=== PATIENT | male | born 1960 | race Caucasian/White ===

== ENCOUNTER 2023-07-20 14:48 | Inpatient (IN) | payer MEDICAID, SELFPAY ==
[2023-07-20] VITALS (58 sets, daily range): BP systolic 66–165; BP diastolic 44–144; BMI 23.5; BMI 23.6
--- NOTE | 2023-07-20 12:05 | ED.GENMED ---
History of Present Illness
General
Chief Complaint: Fainting/Passed Out
Source: patient
Exam Limitations: none
Time Seen by Provider: 07/20/23 11:59
History of Present Illness
History of Present Illness:
See MDM
Past History
Past History
ED Past Medical History: None
ED Past Surgical History: None
Social History
Tobacco: Non-smoker
Alcohol: None
Phy Exam
Physical Exam
Physical Exam:
See MDM
Course
Orders/Labs/Results
Orders:
Orders
07/20/23 11:56
Electrocardiogram (*1) Urgent
Reason for Study: Syncope
07/20/23 11:57
EKG- Treatment ONCE
07/20/23 12:10
Comprehensive Metabolic Panel Urgent
Magnesium Urgent
Comment: ADD ON
07/20/23 12:11
Complete Blood Count/With Diff Urgent
TSH Reflex To Free T4 Urgent
Comment: ADD ON
Troponin I Urgent
07/20/23 12:12
CT Head W/o Iv Contrast Urgent
Comment:
Reason For Exam: syncope
07/20/23 12:19
Lactic Acid Urgent
Blood Culture Q30M
MARISSA Source: Blood/Venous
Specimen Description:
Date Specimen was Collected: 07/20/23
Time Specimen was Collected: 12:13
Blood Culture Q30M
MARISSA Source: Blood/Venous
Specimen Description:
Date Specimen was Collected: 07/20/23
Time Specimen was Collected: 12:13
07/20/23 12:21
Add On- LAB Urgent
Tests Added?: TSH reflex Free T4
07/20/23 12:22
Ondansetron Injectable [Zofran] 4 mg IV NOW STA
07/20/23 12:50
0.9% Sodium Chloride 1000 ml [Nss] 1,000 ml IV BOLUS
07/20/23 13:17
Add On- LAB Urgent
Tests Added?: magnesium
Piperacillin/Tazo 3.375 Gram [Zosyn] 3.375 gram in 50 ml IV NOW
07/20/23 13:19
PTT Urgent
Prothrombin Time Urgent
07/20/23 13:20
0.9% Sodium Chloride 1000 ml [Nss] 1,000 ml IV BOLUS
07/20/23 13:43
Vancomycin [Vancocin] 1,500 mg 0.9% Sodium Chloride [Nss] 20 ml 0.9% Sodium Chloride 250 ml [Nss] 250 ml IV NOW
07/20/23 13:55
NORepinephrine 4 MG/250 ML [Levophed] 4 mg in 250 ml IV NOW
Initial dose in mcg/min, then titrate:: 2
Titrate to keep:: MAP > 65 mmHg
Titrate by mcg/min:: 1-2 mcg/min
Frequency of titrations (minutes):: 5
Maximum dose in ICU in mcg/min:: 30
Maximum dose in IMU in mcg/min:: 8
Maximum dose in IVU in mcg/min:: 4
Begin to taper infusion when:: Remained at goal for 4hrs
Taper by mcg/min:: 1-2 mcg/min
Frequency of taper (minutes) if patient maintains goal:: 30
Taper to off?: Yes
If infusion off & no longer maintaining goal:: Contact Provider
07/20/23 13:56
NORepinephrine 4 MG/250 ML [Levophed] 4 mg in 250 ml .ROUTE .STK-MED
07/20/23 14:07
CT Pe/abd/pel W Urgent
Reason For Exam: b/l lower rib pain
07/20/23 14:30
Admit/Transfer Patient As Directed
Co-Sign Provider:
Level of Care: Inpatient admission
Assign to:: ICU
Physician / Group: Hospitalist
Diagnosis: Sepsis
Reason for Hospitalization: Sepsis
Expected length of stay greater than two midnights?: Yes
ELOS- Estimated Length of Stay in days: 5
I certify the patient meets the requirements for IP care: Yes
07/20/23 14:31
Code Status As Directed
Resuscitation Status: Full Code
07/20/23 Dinner
Regular
At Your Request: Full Participation
Does patient need a safe tray?: No
07/20/23 15:55
Lactic Acid Q4H
Comment: repeat q4 hours x 4 or until less than 2 mmol/L
Troponin I Q6H
0.9% Sodium Chloride 1000 ml [Nss] 1,000 ml IV 200 mls/hr
07/20/23 15:55
Glycohemoglobin (HgbA1c) Routine
Urinalysis Reflex To Culture Urgent
Respiratory Culture/Gram Stain Routine
MARISSA Source: Sputum
Specimen Description:
Comment: IF NOT OBTAINED IN ED
Activity As Directed
Activity Level: As Tolerated
Intake/ Output As Directed
Frequency: Per unit guidelines
Pneumatic Compression Sleeves As Directed
Type: Knee high
Vital Signs As Directed
Frequency: Per unit guidelines
DX Deep Vein Thrombosis Video Routine
07/20/23 16:00
VANCOMYCIN Pharmacy to Dose [VANCOCIN Pharmacy to Dose] 1 each Pharmacy To Prepare [Call Pharmacy To Prepare] 0 ml IV PER PROTOCOL
07/20/23 18:30
Piperacillin/Tazo 3.375 Gram [Zosyn] 3.375 gram in 50 ml IV Q6
07/20/23 19:55
Lactic Acid Q4H
Comment: repeat q4 hours x 4 or until less than 2 mmol/L
07/20/23 21:55
Troponin I Q6H
07/20/23 23:55
Lactic Acid Q4H
Comment: repeat q4 hours x 4 or until less than 2 mmol/L
07/21/23 03:55
Lactic Acid Q4H
Comment: repeat q4 hours x 4 or until less than 2 mmol/L
Troponin I Q6H
07/21/23 06:00
Complete Blood Count/No Diff IN AM
Comprehensive Metabolic Panel IN AM
07/21/23 09:55
Troponin I Q6H
Abnormal Lab Results
07/20/23 07/20/23 07/20/23
12:10 12:11 12:19
RBC 3.45 L 10^6/uL
(4.70-6.10)
Hgb 11.4 L g/dL
(13.0-18.0)
Hct 33.8 L %
(39.0-52.0)
MCV 98.0 H fL
(80.0-94.0)
MCH 33.0 H pg
(27.0-31.0)
MPV 12.2 H fL
(7.4-10.4)
Absolute Neuts (auto) 8.0 H 10^3/uL
(1.4-6.5)
Absolute Lymphs (auto) 0.9 L 10^3/uL
(1.2-3.4)
Neutrophils % 85.1 H %
(42.2-75.2)
Lymphocytes % 9.9 L %
(20.5-51.1)
PT
Chloride 109 H mmol/L
(98-107)
Carbon Dioxide 21 L mmol/L
(22-30)
BUN 27 H mg/dl
(9-20)
Glucose 204 H mg/dl
(70-99)
Lactic Acid 6.2 H* mmol/L
(0.7-2.0)
Calcium 8.1 L mg/dl
(8.4-10.2)
AST 82 H U/L
(17-59)
ALT 88 H U/L
(0-50)
Alkaline Phosphatase 131 H U/L
(38-126)
Total Protein 5.9 L g/dl
(6.3-8.2)
Albumin 2.9 L g/dl
(3.5-5.0)
07/20/23
13:19
RBC
Hgb
Hct
MCV
MCH
MPV
Absolute Neuts (auto)
Absolute Lymphs (auto)
Neutrophils %
Lymphocytes %
PT 16.6 H Sec
(11.4-14.6)
Chloride
Carbon Dioxide
BUN
Glucose
Lactic Acid
Calcium
AST
ALT
Alkaline Phosphatase
Total Protein
Albumin
07/20/23 12:11
07/20/23 12:10
Vital Signs
Initial and Last Documented VS:
Initial Vital Signs
Pulse Resp Pulse Ox
71 16 98
07/20/23 11:58 07/20/23 11:58 07/20/23 11:58
Last Documented Vital Signs
Temp Pulse Resp BP Pulse Ox
97.7 F 110 27 90/64 94
07/20/23 16:19 07/20/23 16:18 07/20/23 16:18 07/20/23 16:03 07/20/23 16:18
MDM/Problems Addressed
Differential Diagnosis Includes:
HPI and MDM Narrative:
62-year-old male presenting by EMS for a near syncope event. Patient had 3 episodes where he was about to pass out. 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 On arrival, patient does appear fatigued and weak.
He is pale and appears malnourished. He does state that he did not eat breakfast this morning. Blood sugar by EMS was over 200. He denies any prior past medical history. Given his history, will obtain basic blood work and provide IV fluids.
Will obtain CT head
Physical exam
General: Weak and frail
HEENT: protecting airway. Dry mucous membranes
Neck: supple
CV: No evidence of cyanosis. Regular rate and rhythm
Resp: No accessory muscle use
Abd: Non-distended
Extremities: No deformities
Neuro: alert
Psych: Normal affect
Skin: Intact
Problems Addressed including Acute and Chronic Conditions affecting care:
1. Near syncope
Acuity: acute
Prognosis: stable
Details: Likely in the setting of dehydration. Will give IV fluids and reassess
2. Hyperglycemia
Acuity: acute
Prognosis: stable
Details: Discussed concern for new onset diabetes
3. Hypothermia
Acuity: acute
Prognosis: unstable
Details: Patient requiring Abhishek hugger
Updates
Patient found to be mildly hypothermic. Will add lactic acid and blood cultures
Given the elevated lactic acid and hypothermia, patient started on broad-spectrum antibiotics. CT head negative. Patient clinically looks better and is more conversant. Systolic blood pressure still around 90 after second liter but patient is
clinically dehydrated. Will continue IV fluids and admit
After talking to the admitting hospitalist, we discussed obtaining CT from the emergency department to assess for PE or possibly undiagnosed cancer
4:20 PM radiology called me indicating that patient has metastatic cancer, likely hepatocellular cancer. There is a large concern that he is actively hemorrhaging from his cancer into his abdomen. Radiology indicating that he had already spoken to
the interventionalist who will come in to embolize. This information was relayed to the admitting hospitalist
Differential Diagnosis (but not limited to): Dehydration, new onset diabetes, cardiac arrhythmia
Testing considered: CT abdomen/pelvis looking for any sort of cancer pathology
Drug therapy (if applicable): OTC meds, please see d/c instruction regarding Rx drugs
Amount and/or Complexity of Data Reviewed
Clinical info obtained from: Patient
External data reviewed: N/A
Labs I independently reviewed (but not limited to): Elevated lactic acid
Radiology: The CT scan was personally and independently reviewed. In addition, official CT report reviewed.
Pulse Ox: not hypoxic
EKG independently reviewed: Sinus rhythm, normal axis, no STEMI, prolonged QT
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
Critical Care: the high probability of a clinically significant, sudden or life threatening deterioration of the cardiovascular system(s) required my full and direct attention, intervention and personal management. The aggregate critical care time
was 33 minutes. This time is in addition to time spent performing reported procedures but includes the following:
[x] Data Review and interpretation
[x] Patient assessment and monitoring of vital signs
[x] Documentation
[x] Medication orders and management
Risk of Complication:
Social Determinants of health: Good social support
Discussed with other providers: hospitalist
Escalation of Care includes Admit/Obs: given his symptoms and lab abnormalities, will admit for IV fluids and IV antibiotics and further evaluation
Occasional wrong word or 'sound a like' substitutions may have occurred due to the inherent limitations of voice recognition software. Read the chart carefully and recognize, using context, where substitutions have occurred.
*Critical Care Note
Total Time (30-74mins, 75-104mins- exclusive of procedures): 33 min
ED Attending Note
-
Portions of this chart may have been created with voice recognition software.� Occasional wrong word or��sound alike� substitutions may have occurred due to the inherent limitations of voice recognition software.
Discharge Plan
Departure
Patient Disposition: Admit
Date of Disposition: 07/20/23
Time of Disposition: 13:29
Admit to: ICU
Presentation/result/management discussed w/ accepting MD/DO: Hospitalist
Discharge Problem:
Near syncope, Acute dehydration, Hyperglycemia, Hypoglycemia
Interventions
Interventions:
*Risk Screen - Suicide Last Done: 07/20/23 11:58
*General Assessment Last Done: 07/20/23 13:15
*Neglect/Abuse Screening Last Done: 07/20/23 12:06
ED- Fall Risk Assessment Last Done: 07/20/23 13:15
*ED COVID-19 Vaccine History Last Done: 07/20/23 12:06
*Nursing Disposition Last Done: 07/20/23 16:20
ED- Cardiac Assessment Last Done: 07/20/23 12:48
ED- Neurological Assessment Last Done: 07/20/23 12:48
Discharge Date and Time
Discharge Date/Time: 07/20/23 16:22
[2023-07-20] MEDS: NSS 1000 IV ×4 (12:20→17:37)
[2023-07-20 12:21] LABS: % Basophils 0.3 % (0-2); % Eosinophils 0.1 % (0-6); % Immature Granulocytes 0.4 % (0-0.5); % Lymphocytes 9.9 % (20.5-51.1); % Monocytes 4.2 % (1.7-9.3); % Neutrophils 85.1 % (42.2-75.2); Absolute Lymphocytes 0.9 10^3/uL (1.2-3.4); Absolute Monocytes 0.4 10^3/uL (0.1-0.6); Hematocrit 33.8 % (39.0-52.0); Hemoglobin 11.4 g/dL (13.0-18.0); Mean Corp Hgb Conc. 33.7 g/dL (33.0-37.0); Mean Platelet Volume 12.2 fL (7.4-10.4); Nucleated Red Blood Cells % 0 % (-); Platelet Count 163 10^3/uL (130-400); Red Blood Cell Count 3.45 10^6/uL (4.70-6.10); Red Cell Dist. Width 13.4 % (11.5-14.5); White Blood Cell Count 9.4 10^3/uL (4.8-10.8)
--- NOTE | 2023-07-20 12:26 | EDRN ---
Addendum entered by Iliana Hansen RN 07/20/23 14:50:
levophed increased to 12mcg/min bp 89/63
Addendum entered by Iliana Hansen RN 07/20/23 14:43:
pts bp remains in the 80's levophed increased to 10mcg/min
Addendum entered by Iliana Hansen RN 07/20/23 14:12:
levophed started at 5mcg/min not 4mch/min
Addendum entered by Iliana Hansen RN 07/20/23 14:06:
pt s bld pressure is in the 80's after 2 liters of fluid
Dr carrion aware
hospitalist Dr Ortega in to eval pt
pt started on levophed 4mcg /min
Addendum entered by Iliana Hansen RN 07/20/23 13:23:
additional; labs added mag and TSH
pts lactic 6.1 Dr Carrion aware
pt to be admitted to hospital. pt aware of admission.
Addendum entered by Iliana Hansen RN 07/20/23 12:48:
laureano sorayagger intact at present
Original Note:
pt started to vomited in triage. Dr carrion aware and gave verbal ordered for IV zofran 4mg , given in ct scan
Original Note:
pt brought in by medics from work for passing out three times and n/v/hypotensiv e
pt answering questions correctly but slow to answer.
pt sts does not have PMD.
pt has no history and is not on meds
pt is not allergic to any thing.
IV inserted 20g right wrist fluids open wide bp 81/59
rectal temp 95.8 warm blankets applied.
pt taken for ct scan of head.
[2023-07-20] MEDS: ZOFRAN 4 MG IV (12:30)
[2023-07-20 12:47] LABS: ALT (SGPT) 88 U/L (0-50); AST (SGOT) 82 U/L (17-59); Albumin 2.9 g/dl (3.5-5.0); Alkaline Phosphatase 131 U/L (38-126); Blood Urea Nitrogen 27 mg/dl (9-20); Calcium 8.1 mg/dl (8.4-10.2); Carbon Dioxide 21 mmol/L (22-30); Chloride 109 mmol/L (98-107); Estimated Creatinine Clearance 61 ml/min; Glucose 204 mg/dl (70-99); Sodium 139 mmol/L (135-145); Total Bilirubin 1.1 mg/dl (0.2-1.3); Total Protein 5.9 g/dl (6.3-8.2); eGFR > 60.00
[2023-07-20 12:55] LABS: Troponin I < 0.012 ng/ml
[2023-07-20 12:56] LABS: Lactic Acid 6.2 mmol/L (0.7-2.0)
[2023-07-20] MEDS: ZOSYN 50 IV ×2 (13:29→20:44)
[2023-07-20 13:32] LABS: Magnesium 1.9 mg/dl (1.6-2.3)
[2023-07-20 13:39] LABS: APTT 25.2 Sec (23.4-35.0); INR 1.36; PT 16.6 Sec (11.4-14.6)
[2023-07-20 13:51] LABS: TSH Reflex To Free T4 3.42 uIU/ml (0.47-4.68)
[2023-07-20] MEDS: LEVOPHED 250 IV ×2 (14:00→19:06)
[2023-07-20] MEDS: VANCOCIN 300 MG IV (14:10)
[2023-07-20] MEDS: VANCOCIN 300 ML IV (14:10)
--- NOTE | 2023-07-20 14:10 | HPS.HSE ---
Family Physician
-
Family Physician: PHYSICIAN PRIVATE
Chief Complaint
-
Tiredness
History of Present Illness
62-year-old man who comes to the ER by EMS for a near syncope event. 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 On arrival, he was pale and
appeared malnourished. He did not eat breakfast this morning. Blood sugar by EMS was over 200. He denies any prior past medical history and does not see a regular doctor. He does not take any medications. At the time that I saw him he was
unable to give further history, except to say his ribs were hurting (bilaterally). No history of trauma. He was getting IV fluids, IV antibiotics and a warmer blanket. He seemed mildly confused.
Medical History
Past Medical History
Past Medical History: Reports Other
Additional Past Medical History:
He denies a PMH
Past Surgical History: Reports None
Social History
Unable to obtain full social history at this time due to: Acuity
Tobacco: Non-smoker
Alcohol: Occasional
Drug: None
Employment: Employed
Family History
Family History: Not pertinent and Unable to Obtain
Allergies / Home Medications
Allergies reflects when Allergies were last updated in [employer].
Home Medications with original date entered in [employer]
Allergy/Medication List:
Allergies
Allergy/AdvReac Type Severity Reaction Status Date / Time
No Known Allergies Allergy Verified 07/20/23 12:28
Home Medications
No Meds [No Current Medications] 07/20/23
Review of Systems
-
Unable to obtain full review of systems at this time due to: Acuity
History Source: Patient
A 12 point ROS was completed and negative except as noted: Yes
Physical Exam
Vital Signs
Vital Signs
Temp Pulse Resp BP Pulse Ox
95.6 F L 74 16 89/57 95
07/20/23 12:12 07/20/23 13:35 07/20/23 13:35 07/20/23 13:35 07/20/23 13:35
Physical Exam
General: Appears in Distress and Appears Chronically Ill
HEENT: Nose Appears Normal and Ears Appear Normal
Respiratory: Clear
Cardiac: S1/S2 and Regular Rhythm
GI: Soft, Non Tender and Non Distended
Musculoskeletal: No Clubbing, No Cyanosis and No Edema
Skin: Warm and Dry
Neuro: Awake
Psych: Calm
Laboratory Results
-
07/20/23 12:11
07/20/23 12:10
Laboratory Results
PT 16.6 Sec (11.4-14.6) H 07/20/23 13:19
INR 1.36 07/20/23 13:19
APTT 25.2 Sec (23.4-35.0) 07/20/23 13:19
Lactic Acid 6.2 mmol/L (0.7-2.0) H* 07/20/23 12:19
Total Bilirubin 1.1 mg/dl (0.2-1.3) 07/20/23 12:10
AST 82 U/L (17-59) H 07/20/23 12:10
ALT 88 U/L (0-50) H 07/20/23 12:10
Alkaline Phosphatase 131 U/L (38-126) H 07/20/23 12:10
Troponin I < 0.012 ng/ml 07/20/23 12:11
Data Reviewed
-
Lab Data: Labs Reviewed by me
Impression/Plan
-
IMPRESSION:
62 man comes in with near syncopal events. He appears chronically ill. Significant finding:
BP 89/57
Temp 95.6
Cl 109
CO2 21
BUN/Creat 27/1.1
Glucose 204
Lac Acid 6.2
Albumin 2.9
AST 82
ALT 88
AlkPhos 131
PLAN:
1. Probable sepsis, source unknown
Broad spectrum abx
Large volume fluids
Pressure support with pressors
Warming blanket
ICU admit
2. Low albumin with high alk phos - pattern suggest cancer, source unknown, no h/o cancer screenings
CT of chest, abd, pelvis (ordered in ED)
Check PSA
3. BUN 27/1.1, appears dehydrated
High volume IV fluids
Recheck in am
4. Inflamed liver - could be from low BP
High volume IV fluids
Recheck in am
5. Elevated glucose - unclear for how long, could be new DM
Check A1c
Supplemental insulin as needed
Diet as tolerated
Full code
VCD for DVTp
--- NOTE | 2023-07-20 15:59 | PHA.VAN.IN ---
Assessment
- Assessment
Renal Function: Unknown baseline
Concomitant Antimicrobials: piperacillin/tazobactam
Plan
- Plan
Initial / Loading Dose: 1500mg - 07/19 14:10
Maintenance Regimen: dosing by level given unknown baseline SCR
Monitoring: random 07/20 0600
MRSA Screen: Ordered per protocol
Will start with dose by level for now and trend SCR
Pharmacokinetics Vancomycin I
- -
Patient Age: 62
Patient Sex: Male
Vancomycin Day #: 1
Indication: Pulmonary/Respiratory
Requesting Provider: Dr. Ortega
Pertinent Antimicrobial Allergies:
NKDA
Height / Weight:
Height 5 ft 6 in
Actual Weight 65.9 kg
- Vital Signs / Lab Results
Temp Pulse Resp BP Pulse Ox
95.6 F L 91 27 90/64 96
07/20/23 12:12 07/20/23 15:00 07/20/23 15:00 07/20/23 15:00 07/20/23 15:00
Lab Results - Hematology
07/20/23
12:11
WBC 9.4
Lab Results - Chemistry
07/20/23
12:10
BUN 27 H
Creatinine 1.1
Estimated Creat Clear 61
Albumin 2.9 L
07/20/23
12:19
Lactic Acid 6.2 H*
[2023-07-20 17:04] LABS: Troponin I 0.013 ng/ml
--- NOTE | 2023-07-20 17:17 | CON.INTV ---
Consultation
Consultation Request
Date/Time Consultation Requested: 07/20/2023 - 1699
Date/Time Consultation Performed: 07/20/2023 - 1714
Requesting Provider: Dr. Ortega
Performing Provider: Dr. Lozano
Reason for Consultation: Shock on vasopressors
Medical History
-
Chief Complaint: Weakness
History of Present Illness:
62-year-old male non-smoker with no known past medical history presents with weakness and near syncopal events. 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 He felt nauseous today as well with reported vomiting. Blood sugar for EMS was >200. He denies taking any medications and does not have any known medical history. In triage he was hypotensive
to 84/59, hypothermic to 95.6 �F, pulse rate 71, breathing at 16 breaths/min and saturating 98% on room air. Labs showed Hb of 11.4, platelets 163, INR 1.36, glucose 204, lactate 6.2 and elevated LFTs with negative troponin x 2. Blood cultures
were collected. Given his syncopal episode that was reported CT head was done which showed no acute intracranial abnormality. Given his abdominal/rib pain, a CTA/abdomen/pelvis with contrast was done showing no evidence of a central PE, and a
large partially exophytic left liver lobe lesion measuring 8 cm accompanying a massive hematoma about the central abdomen with moderate to large volume complex free fluid suggesting hemorrhage, and suggestive of active extravasation. This is
suspicious for a ruptured tumor like a HCC with hemorrhagic ascites. There are also distal paraesophageal varices. Patient was given fluids in the ER with NS 0.9% x 2L, vancomycin/Zosyn, Zofran and started on Levophed given BP remained in 70-80s.
Patient being admitted to the ICU and critical care services consulted for additional management/recommendations.
When I saw the patient he was in bed, looking chronically ill, elizabeth appearing with slight yellow hue to the skin and lower conjunctiva, with BP 74/56 while on Levophed at 16mcg/min, heart rate 110 and saturating 95% on room air. He was also on NS
at 200cc/hr. He endorses mild shortness of breath but really his main issue is weakness with abdominal pain. He denies taking any medications. He currently denies a headache, chest pain, diarrhea, fevers or chills.
PMHx: No known past medical history
PSHx: Noncontributory
Past Medical History
Past Medical History: Other (Above as per HPI)
Past Surgical History: Other (Above as per HPI)
Social History
Tobacco: Non-smoker
Alcohol: Occasional (Says he only drinks once a week but used to drink 4 beers a day up until February 25, 2023)
Drug: None
Family History
Family History: Unable to Obtain (Patient unaware and unable to obtain given acute clinical status)
Allergies / Home Medications
Allergies
Allergy/AdvReac Type Severity Reaction Status Date / Time
No Known Allergies Allergy Verified 07/20/23 12:28
Home Medications
�Medication �Instructions �Recorded �Confirmed �Last Taken �Type
No Meds [No Current Medications] 07/20/23 07/20/23 Unknown History
Review of Systems
-
Unable to Obtain full review of systems at this time due to: Acuity
Vitals / Labs / Diagnostic Testing
Vital Signs
Temp Pulse Resp BP Pulse Ox
97.7 F 110 27 90/64 94
07/20/23 16:19 07/20/23 16:18 07/20/23 16:18 07/20/23 16:03 07/20/23 16:18
Lab Data
07/20/23 12:11
07/20/23 12:10
Laboratory Results
07/20/23
13:19
PT 16.6 H
INR 1.36
APTT 25.2
Diagnostic Testing:
Physical Exam
-
HEENT: Normocephalic and Anicteric
Cardiovascular: Other (Tachycardic)
Respiratory: Wheeze (Negative), Rales (bibasilar), Rhonchi (Negative) and Accessory Resp Muscle Use (mild)
GI: Soft, Distended, Tender and Normal Bowel Sounds
Neurology: Awake and Alert
Skin: Warm and Dry
General: Respiratory Distress (mild due to abd pain)
Assessment
-
Assessment: 62-year-old male non-smoker with no known past medical history presents with weakness and near syncopal events. 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 He felt nauseous today as well with reported vomiting. Blood sugar for EMS was >200. He denies taking any medications and does not have any known medical history. In triage he was
hypotensive to 84/59, hypothermic to 95.6 �F, pulse rate 71, breathing at 16 breaths/min and saturating 98% on room air. Labs showed Hb of 11.4, platelets 163, INR 1.36, glucose 204, lactate 6.2 and elevated LFTs with negative troponin x 2. Blood
cultures were collected. Given his syncopal episode that was reported CT head was done which showed no acute intracranial abnormality. Given his abdominal/rib pain, a CTA/abdomen/pelvis with contrast was done showing no evidence of a central PE,
and a large partially exophytic left liver lobe lesion measuring 8 cm accompanying a massive hematoma about the central abdomen with moderate to large volume complex free fluid suggesting hemorrhage, and suggestive of active extravasation. This is
suspicious for a ruptured tumor like a HCC with hemorrhagic ascites. There are also distal paraesophageal varices. Patient was given fluids in the ER with NS 0.9% x 2L, vancomycin/Zosyn, Zofran and started on Levophed given BP remained in 70-80s.
Patient being admitted to the ICU and critical care services consulted for additional management/recommendations.
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
Impression:
#Shock likely hemorrhagic +/- sepsis in the setting of intra-abdominal bleed with hemorrhagic ascites (suspected ruptured hepatic tumor, i.e. HCC)
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
#Hypothermia likely due to reduced p.o. intake in setting of possible sepsis
#Transaminitis
#Lactic acidosis
#Hyperglycemia
#Non-anion gap metabolic acidosis
#Anemia (unknown baseline)
#Hx of alcohol use
Plan:
- IR has reviewed the CT Abd/Pelvis with contrast study, and have come in for angiogram + embolization likely with gel-foam
- patient remains consentable - I consented him for blood transfusion, and I will give 2 units PRBC now
- Trend Hb with serial H/H; transfuse if active bleed or if Hb <7g/dL; keep plt>50k, INR<2
- Trend lactate level until <2mmol/L
- Continue levophed and maintain MAP>65
- Start vasopressin and give another 1L of NS 0.9%
- Give albumin 25g 25%
- I am hopefully that his BP will improve once this abdominal/hepatic bleed is controlled
- If IR unable to control the bleed then general surgery will need to consulted
- Trend LFTs
- Continue ABx with Zosyn and follow up infectious workup with BCx
- Maintain SpO2 >90-94%
- Replete electrolytes with K>4, Mg>2
- Keep NPO for now
- Maintain euglycemia with goal BG 140-180; use low-resistance ISS
- prn nebulized bronchodilators
- Incentive spirometer
- DVT ppx - SCDs for now; hold antiplatelets/anticoagulants for now
Critical care statement: A total of 40 minutes of critical care time was provided for this patient today. This includes management of unstable vital signs, evaluation of the patient at bedside, reviewing the patient's pertinent medical records
including radiographs, microbiology, laboratory evaluations, and discussion with primary team, consultants, pharmacy, nutrition, physical therapy, case management, charge nurse, critical care nursing, and respiratory therapy.
Data:
CTA Chest/Abd/Pelvis with Contrast 07-20-2023:
No evidence of central pulmonary embolism.
Large partially exophytic in the left lobe measuring at least 8 cm with likely accompanying massive accompanying hematoma about the central abdomen and moderate to large volume complex free fluid suggesting hemorrhage, centered about the large left
lobe lesion with some likely active contrast extravasation. Findings are suspicious for ruptured tumor such as hepatocellular carcinoma with accompanying large hematoma and with moderate to large volume mildly complex free fluid/hemorrhage.
Additional smaller hepatic lesions suspicious for malignancy, possibly multifocal hepatocellular carcinoma.
Distal paraesophageal varices.
Cholelithiasis.
[2023-07-20 17:19] LABS: Lactic Acid 7.1 mmol/L (0.7-2.0)
[2023-07-20] MEDS: PITRESSIN 100 IV (17:37)
[2023-07-20] MEDS: FLEXBUMIN 100 IV (18:04)
--- NOTE | 2023-07-20 19:00 | PTCARENOTE ---
Received pt from ER into rm [id number] @ approx 1600, hemodynamically unstable. Emergently taken to IR on vaso and levo gtts w NS bolus infusing- see flow sheet/APR. pattern keeper RN updated, awaiting report from IR.
--- NOTE | 2023-07-20 19:23 | W.PN.UPDATE ---
Update Note
Progress Note Update
Procedure:
- RIJ central line placement
- Celiac arteriogram and LHA arteriogram. Images showed large hypervascular mass within the left lobe predominantly supplied by the left hepatic artery. Abnormal pooling/blush of contrast observed along the inferior margin of the mass to correspond
to hemorrhage seen on prior CT.
- Embolization of LHA performed with small amount of beads (300-500um) followed by gelfoam slurry. Final images showed nearly static flow within proximal LHA with no further signs of bleeding
- R groin closed with mynx closure device
[2023-07-20] MEDS: NOVOLOG FLEXPEN-LOW RESISTANCE SC (20:44)
[2023-07-20] MEDS: NSS IV (20:48)
[2023-07-20] MEDS: MORPHINE SULFATE 2 MG IV (21:55)
--- NOTE | 2023-07-20 22:03 | PTCARENOTE ---
Pt arrived back to ICU from IR approx 19:45. Pt Ox3, drowsy and forgetful. Sinus tach, w/ occasional PVCs. Remains on levophed and vaso. Pts general color dusky/pale. B/L LE pale/cold/cap refill > 2. DP pulses by doppler, PT palpable. R groin site
WNL. RLE tp be kept straight x3hr. 2L NC, breath sounds coarse t/o. Bowel sounds hypoactive. C/O upper abd pain, unable to rate--stated 'same as before', PRN order for morphine IVP obtained and administered. Grubbs placed for acute retention. Bladder
scan = >396, initial output = 650. x2 units PRBCs transfused. Repeat labs pending. Safe environment maintained, callbell within reach.
[2023-07-20 23:28] LABS: Hemoglobin 9.7 g/dL (13.0-18.0); Mean Corp Hgb Conc. 34.6 g/dL (33.0-37.0); Mean Corpuscular Hgb 31.7 pg (27.0-31.0); Mean Corpuscular Volume 91.5 fL (80.0-94.0); Mean Platelet Volume 12.3 fL (7.4-10.4); Platelet Count 151 10^3/uL (130-400); Red Blood Cell Count 3.06 10^6/uL (4.70-6.10); Red Cell Dist. Width 16.1 % (11.5-14.5); White Blood Cell Count 19.4 10^3/uL (4.8-10.8)
[2023-07-20 23:56] LABS: Lactic Acid 5.9 mmol/L (0.7-2.0)
[2023-07-21] VITALS (73 sets, daily range): BP systolic 82–145; BP diastolic 44–102; BMI 25.1
[2023-07-21] LABS: Troponin I 0.034 ng/ml
[2023-07-21 00:53] LABS: Urine Albumin Trace (Neg - Trace); Urine Bilirubin Negative (Negative); Urine Character Slightly Cloudy (Clear); Urine Color Yellow; Urine Glucose Negative (Negative); Urine Ketone Negative (Negative); Urine Leukocyte Trace (Negative); Urine Nitrite Negative (Negative); Urine Occult Blood 1+ (Negative); Urine Specific Gravity 1.015 (<1.030); Urine Urobilinogen Negative (Neg - 1+)
[2023-07-21] MEDS: ZOSYN 50 IV ×4 (00:57→17:30)
[2023-07-21] MEDS: NOVOLOG FLEXPEN-LOW RESISTANCE 1 UNITS SC (01:00)
[2023-07-21 01:11] LABS: Glucose - Point of Care 153 mg/dl (70-99)
[2023-07-21 01:33] LABS: Urine Amorphous Seen; Urine Squamous Cell >30 /LPF (Few)
[2023-07-21 01:35] LABS: Urine Bacteria Moderate (Negative); Urine White Cell 30-40 /HPF (0-5)
[2023-07-21 01:36] LABS: Urine White Cell Cast 0-2 /LPF
[2023-07-21] MEDS: NSS 1000 IV ×4 (02:30→19:55)
[2023-07-21] MEDS: PITRESSIN 100 IV (03:47)
[2023-07-21 04:56] LABS: Hematocrit 24.2 % (39.0-52.0); Hemoglobin 8.7 g/dL (13.0-18.0); Mean Corpuscular Hgb 31.5 pg (27.0-31.0); Mean Corpuscular Volume 87.7 fL (80.0-94.0); Mean Platelet Volume 11.8 fL (7.4-10.4); Platelet Count 141 10^3/uL (130-400); Red Blood Cell Count 2.76 10^6/uL (4.70-6.10); Red Cell Dist. Width 16.4 % (11.5-14.5); White Blood Cell Count 14.5 10^3/uL (4.8-10.8)
[2023-07-21 05:16] LABS: Lactic Acid 3.5 mmol/L (0.7-2.0)
[2023-07-21 05:19] LABS: Vancomycin Random 7.3 ug/ml
[2023-07-21 05:20] LABS: Troponin I 0.034 ng/ml
[2023-07-21 05:34] LABS: ALT (SGPT) 429 U/L (0-50); AST (SGOT) 818 U/L (17-59); Albumin 2.7 g/dl (3.5-5.0); Alkaline Phosphatase 79 U/L (38-126); Blood Urea Nitrogen 29 mg/dl (9-20); Calcium 7.6 mg/dl (8.4-10.2); Carbon Dioxide 18 mmol/L (22-30); Chloride 111 mmol/L (98-107); Estimated Creatinine Clearance 75 ml/min; Glucose 133 mg/dl (70-99); Potassium 4.7 mmol/L (3.5-5.1); Sodium 138 mmol/L (135-145); Total Bilirubin 1.4 mg/dl (0.2-1.3); Total Protein 5.3 g/dl (6.3-8.2); eGFR > 60.00
[2023-07-21] MEDS: NOVOLOG FLEXPEN-LOW RESISTANCE SC ×3 (06:18→17:30)
[2023-07-21 06:20] LABS: Glucose - Point of Care 137 mg/dl (70-99)
--- NOTE | 2023-07-21 06:43 | PTCARENOTE ---
Levophed at 2mcg/min, vasopressin off. MAP goal > 65 maintained.
--- NOTE | 2023-07-21 08:07 | W.PN.HOSP.TC ---
Today's Communication/Plan
-
see bold
Assessment / Plan
Assessment / Plan
HPI: 62-year-old male non-smoker with no known past medical history presents with weakness and near syncopal events. 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 He felt nauseous today as well with reported vomiting.
#Hemorrhagic shock
#Left hepatic artery rupture with bleeding
#Massive intra-abdominal hematoma
#Lactic acidosis
Status post normal saline bolus and IV albumin
Appreciate trade specialist input, now off vasopressin and Levophed
Status post embolization of left hepatic artery by IR followed by Gelfoam slurry on 07/19
Continue empiric antibiotics for leukocytosis
N.p.o., continue IV fluids, monitor in ICU, consult general surgery
# 8 cm left liver lobe lesion concerning for HCC
#Transaminitis
Consult hematology, trend LFTs
#Acute blood loss anemia
Status post 2 units packed red blood cells
Hemoglobin dropped to 7.6, was hemoglobin 8.7 this am, was 11.4
Transfuse additional 2 units today, continue to trend
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
#History of alcohol use
#Hyperglycemia
Hemoglobin A1c 5.1
Monitor hemoglobin
DVT prophylaxis�SCDs
Full code
Total time spent to see the patient on the floor, examine the patient, review data and lab results, discuss treatment plan with patient, nursing staff around 52 minutes.
Physical Exam
General: Appears acutely ill, no acute distress
HEENT: Normocephalic, Atraumatic, EOMI, MMM
Respiratory: Clear to Auscultation bilaterally
Cardiac: Normal S1/S2, Regular Rate and Rhythm
GI: Soft, mildly distended, tender
Extremities: No Clubbing, Cyanosis
Neuro: Nonfocal/Grossly Intact
Psych: Calm, Cooperative
Anticipated Discharge: > 48 hours
Subjective/Interval History
-
Date of Service: July 21, 2023
Objective Data
-
Labs:
Laboratory Results
07/20/23 07/21/23 07/21/23
23:19 04:45 12:00
WBC 19.4 H 14.5 H
Hgb 9.7 L 8.7 L Pending
Hct 28.0 L 24.2 L Pending
Plt Count 151 141
Sodium 138
Potassium 4.7
Chloride 111 H
Carbon Dioxide 18 L
BUN 29 H
Creatinine 0.9
Glucose 133 H
Calcium 7.6 L
Total Bilirubin 1.4 H
AST 818 H*
ALT 429 H
Alkaline Phosphatase 79
Vital Signs:
Vital Signs
Temp Pulse Resp BP Pulse Ox
99.2 F 103 17 132/76 95
07/21/23 07:18 07/21/23 07:00 07/21/23 07:00 07/21/23 07:00 07/21/23 07:00
I&O
07/20/23 07/21/23 07/22/23
06:59 06:59 06:59
Intake Total 2304.0 / 2511.5 207.5 / 207.5
Output Total 910 / 910
Balance 1394.0 / 1601.5 207.5 / 207.5
--- NOTE | 2023-07-21 09:00 | PTCARENOTE ---
Received pt @ change of shift. Drowsy, awakens to verbal stimuli, Ox3; forgetful/anx @ x's. C/O upper abd pain, unable to rate but reports it's improving. ST w PVC's on monitor. SpO2 93% on 2LNC. Auscultated coarse breath sounds throughout and
diminished breath sounds @ b/l base. Hypoactive BS, upper abd tender. Grubbs in place draining clear/yellow urine. R groin site c/d/i; no hematoma/ecchymosis appreciated. B/L LE pale; cap refill >2 sec; + pedal doppler pulses. General skin color
sallow. R IJ TL in place, patent ; levo and vso gtts off- see flow sheet. NSS @ 200mL/hr infusing via #20 L wrist. Assisted w hygiene and repositioning in bed. Informed on plan of care. BrotherPipe, updated on pt,'s current condition via
phone. Instructed on how to report care concerns and call ramirez in reach.
[2023-07-21 09:08] LABS: Glycohemoglobin (HgbA1c) 5.1 % (4.0-5.6)
--- NOTE | 2023-07-21 09:27 | W.PN.INTV ---
Today's Communication / Plan
Recommendations
Trend H/H and transfuse if Hb<7g/dL
keep plt>50k
Hold antiplatelets/anticoagulants for now
Clear liquid diet and advance as tolerated
Once stable he should obtain either a liver biopsy versus paracentesis to help obtain tissue for diagnosis of suspected HCC
Pain control
SCDs
Full code
Assessment
-
Assessment: 62-year-old male non-smoker with no known past medical history presents with weakness and near syncopal events. 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 He felt nauseous today as well with reported vomiting. Blood sugar for EMS was >200. He denies taking any medications and does not have any known medical history. In triage he was
hypotensive to 84/59, hypothermic to 95.6 �F, pulse rate 71, breathing at 16 breaths/min and saturating 98% on room air. Labs showed Hb of 11.4, platelets 163, INR 1.36, glucose 204, lactate 6.2 and elevated LFTs with negative troponin x 2. Blood
cultures were collected. Given his syncopal episode that was reported CT head was done which showed no acute intracranial abnormality. Given his abdominal/rib pain, a CTA/abdomen/pelvis with contrast was done showing no evidence of a central PE,
and a large partially exophytic left liver lobe lesion measuring 8 cm accompanying a massive hematoma about the central abdomen with moderate to large volume complex free fluid suggesting hemorrhage, and suggestive of active extravasation. This is
suspicious for a ruptured tumor like a HCC with hemorrhagic ascites. There are also distal paraesophageal varices. Patient was given fluids in the ER with NS 0.9% x 2L, vancomycin/Zosyn, Zofran and started on Levophed given BP remained in 70-80s.
Patient being admitted to the ICU and critical care services consulted for additional management/recommendations.
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
Impression:
#Shock likely hemorrhagic +/- sepsis in the setting of intra-abdominal bleed with hemorrhagic ascites (suspected ruptured hepatic tumor, i.e. HCC)
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
#Hypothermia likely due to reduced PO intake in setting of possible sepsis
#Transaminitis
#Lactic acidosis
#Hyperglycemia
#Non-anion gap metabolic acidosis
#Anemia (unknown baseline)
#Hx of alcohol use
#Multiple pulmonary nodules including calcified granulomas and non-calcified nodules, including RLL 5mm nodule, and other scattered subcentimeter nodules in RUL + RMLe
Plan:
-IR performed celiac arteriogram and left hepatic artery arteriogram on 07/20/2023, with a large hypervascular mass within the left lobe predominantly supplied by the left hepatic artery. Embolization of the left hepatic artery performed with small
amount of beads followed by Gelfoam slurry. No further signs of bleeding seen by the procedures end.
- He received 2 units PRBC on 07/19
- Trend Hb with serial H/H; transfuse if active bleed or if Hb <7g/dL; keep plt>50k, INR<2
- Trend lactate level until <2mmol/L
- Maintain MAP>65
- Continue vasopressin
- prn albumin 25g 25% if needed for hypotension
- If bleed returns then general surgery will need to consulted
- Oncology consult given concern for HCC; once stable he should obtain liver Bx vs paracentesis to help obtain tissue for diagnosis
- Trend LFTs
- Continue ABx with Zosyn and follow up infectious workup with BCx
- No need for IV vanco given negative MRSA swab and little suspicion for PNA
- Maintain SpO2 >90-94%
- Replete electrolytes with K>4, Mg>2
- Ok for clear liquids for now
- Maintain euglycemia with goal BG 140-180; use low-resistance ISS
- prn nebulized bronchodilators
- Incentive spirometer
- DVT ppx - SCDs for now; hold antiplatelets/anticoagulants for now
Critical care statement: A total of 41 minutes of critical care time was provided for this patient today. This includes management of unstable vital signs, evaluation of the patient at bedside, reviewing the patient's pertinent medical records
including radiographs, microbiology, laboratory evaluations, and discussion with primary team, consultants, pharmacy, nutrition, physical therapy, case management, charge nurse, critical care nursing, and respiratory therapy.
Data:
CTA Chest/Abd/Pelvis with Contrast 07-20-2023:
No evidence of central pulmonary embolism.
Large partially exophytic in the left lobe measuring at least 8 cm with likely accompanying massive accompanying hematoma about the central abdomen and moderate to large volume complex free fluid suggesting hemorrhage, centered about the large left
lobe lesion with some likely active contrast extravasation. Findings are suspicious for ruptured tumor such as hepatocellular carcinoma with accompanying large hematoma and with moderate to large volume mildly complex free fluid/hemorrhage.
Additional smaller hepatic lesions suspicious for malignancy, possibly multifocal hepatocellular carcinoma.
Distal paraesophageal varices.
Cholelithiasis.
Embolization 07-20-2023: Embolization of the left hepatic artery feeding a large hypervascular and bleeding tumor using a combination of embospheres and gel foam slurry.
Subjective Dataa
Subjective Data
Date of Service:
Date of Service: July 21, 2023
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
Subjective:
Patient seen this morning. His skin color is much less pale/elizabeth, and is normal appearing. BP 126/81 and he is off all vasopressors. He is on 2 L/min nasal cannula saturating 93%. He remains tachycardic, however, to 118 bpm. And he is still
tachypneic to 28 breaths/min and says he is short of breath. He also endorses lower abdominal pain. His abdominal pain and SOB however are better than yesterday. He has received 2 units PRBCs yesterday with Hb this morning of 8.7.
Review of Systems
General: Other (Negative unless mentioned above)
Objective Data
Data Reviewed
Vital Signs / I&O / Oxygen:
Vital Signs
Temp Pulse Resp BP Pulse Ox
99.2 F 117 19 117/77 93
07/21/23 11:02 07/21/23 09:15 07/21/23 09:15 07/21/23 09:15 07/21/23 09:26
Intake and Output
07/20/23 07/21/23 07/22/23
06:59 06:59 06:59
Intake Total 2304.0 / 2511.5 1077.5 / 1077.5
Output Total 910 / 910 150 / 150
Balance 1394.0 / 1601.5 927.5 / 927.5
SaO2 93
Nasal Cannula flow liters per 2
minute
Physical Exam
General: Respiratory Distress (mild) and Chills (negative)
HEENT: Normocephalic and Anicteric
Cardiovascular: S1-S2, Peripheral Edema (negative) and Other (Tachycardic)
Respiratory: Wheeze (negative), Crackles (negative), Rhonchi (negative) and Accessory Resp Muscle Use (Mild)
GI: Distended, Tender (hypogastrium) and Normal Bowel Sounds
Neurology: AO x 3 and Tremors (negative)
Skin: Warm and Dry
Labs/Micro/Reports
Lab Data
07/21/23 04:45
Laboratory Results
07/20/23
13:19
PT 16.6 H
INR 1.36
APTT 25.2
Microbiology
07/20/23 16:40 Nose Nasal Screen MRSA (PCR) - Final
MRSA not detected - performed by PCR methodology.
--- NOTE | 2023-07-21 09:41 | PHA.VAN.FU ---
Vancomycin Assessment / Plan
- Assessment
Renal Function: SCR Decreasing
WBC's are: Trending Down
In the past 24 hrs, patient has been: Afebrile
Concomitant Antimicrobials: Piperacillin-tazobactam
- Assessment - Therapeutic Drug Monitoring
Random Level: R = 7.3 ~ 15hrs post Vanc 1500mg
- Dosing Plan
Adjust Regimen to: Vanc 750mg IV q12H
New Regimen Predicts: AUC (472), Peak (27.6), Trough (13.3)
- Monitoring Plan
No level(s) ordered at this time: Consider levels after 07/21 1800 dose.
- Follow Up
Pharmacy will continue to follow.
Vancomycin Follow UP
- -
Patient Age: 62
Patient Sex: Male
Vancomycin Day #: 2
Indication: Pulmonary/Respiratory
Requesting Provider: Dr. Ortega
Pertinent Antimicrobial Allergies:
NKDA
Height / Weight:
Height 5 ft 6 in
Actual Weight 70.4 kg
- Vital Signs / Lab Results
Temp Pulse Resp BP Pulse Ox
99.2 F 117 19 117/77 93
07/21/23 07:18 07/21/23 09:15 07/21/23 09:15 07/21/23 09:15 07/21/23 09:26
Lab Results - Hematology
07/20/23 07/20/23 07/21/23
12:11 23:19 04:45
WBC 9.4 19.4 H 14.5 H
Lab Results - Chemistry
07/20/23 07/21/23
12:10 04:45
BUN 27 H 29 H
Creatinine 1.1 0.9
Estimated Creat Clear 61 75
Albumin 2.9 L 2.7 L
07/20/23 07/20/23 07/20/23
12:19 16:32 19:55
Lactic Acid 6.2 H* 7.1 H* Cancelled
07/20/23 07/21/23
23:19 04:45
Lactic Acid 5.9 H* 3.5 H
Lab Results - Urine
07/21/23
00:39
Urine Nitrite (Reflex) Negative
Leukocyte Esterase Rfl Trace A
Ur Squamous Epith Cells >30
Therapeutic Drug Monitoring
Random Vancomycin 7.3 ug/ml 07/21/23 04:45
[2023-07-21] MEDS: VANCOCIN 150 IV (10:17)
[2023-07-21 12:13] LABS: Glucose - Point of Care 119 mg/dl (70-99)
--- NOTE | 2023-07-21 12:38 | PTCARENOTE ---
Remains off pressors. Surgery team to bedside. Diet advanced, assisted pt w ordering clear liq diet for lunch. Instructed on breathing exercises/IS, demonstrates understanding. H&H drawn/sent to lab, awaiting results. Bedrest maintained pending
H&H results. Pt.'s sister to bedside this afternoon, updated on plan of care. Pt.'s call ramirez remains w in reach.
[2023-07-21 12:41] LABS: Hematocrit 21.1 % (39.0-52.0); Hemoglobin 7.6 g/dL (13.0-18.0)
[2023-07-21 12:48] LABS: Troponin I 0.022 ng/ml
--- NOTE | 2023-07-21 13:45 | CON.GS ---
Consultation
-
Date/Time Consultation Requested: 07/21/23 1024
Requesting Provider: Olegario Mercado
Reason for Consultation: ruptured tumor
Medical History
-
Chief Complaint: abdominal pain
History of Present Illness:
Mr. Rivera is a 62 yo male without significant prior medical history although he does admit to no recent medical evaluation who presents with syncope x3 episodes with abdominal and rib pain. He was found to have liver lesions and a large adjacent
hematoma on CT imaging and was taken to IR emergently for embolization of LHA. He is currently reporting some mild central abdominal pain with bloating. He has passed flatus once but no BM since presentation. He denies nausea. He does note some
dyspnea.
Social History
Tobacco: Non-Smoker
Alcohol: Other (Several beers daily up until February of this year, now weekly glass of beer)
Living: With Family (lives with sister)
Family History
Family History: Reviewed & Not Pertinent
Allergies / Home Medications
Allergy/AdvReac Type Severity Reaction Status Date / Time
No Known Allergies Allergy Verified 07/20/23 12:28
�Medication �Instructions �Recorded �Confirmed �Type
No Meds [No Current Medications] 07/20/23 07/20/23 History
Review of Systems
-
History Source: Patient and Family
All other systems: Negative unless noted
A 10 point review of systems was completed, and was negative except as per HPI.
Physical Exam
Vital Signs
Temp Pulse Resp BP Pulse Ox
99.1 F 113 20 123/80 93
07/21/23 13:43 07/21/23 13:43 07/21/23 13:43 07/21/23 13:43 07/21/23 13:43
07/20/23 07/21/23 07/22/23
06:59 06:59 06:59
Actual Weight 70.4 kg
Body Mass Index (BMI) 25.1
Lab Results
07/21/23 12:08
07/21/23 04:45
WBC 14.5 10^3/uL (4.8-10.8) H 07/21/23 04:45
Hgb 7.6 g/dL (13.0-18.0) L 07/21/23 12:08
Hct 21.1 % (39.0-52.0) L 07/21/23 12:08
Plt Count 141 10^3/uL (130-400) 07/21/23 04:45
Abs Immat Gran (auto) 0.0 10^3/uL (0-0.05) 07/20/23 12:11
Neutrophils % 85.1 % (42.2-75.2) H 07/20/23 12:11
Physical Exam
General: Other (Ill appearing)
Respiratory: Non Labored Respirations
GI: Soft, Tender (central abd) and Distended (mild)
Skin: Warm
Neuro: Awake, Alert and AO x 3
Psych: Calm
Data Reviewed
-
Radiology: Image Personally Visualized and interpreted, Report Reviewed by me, Discussed with Physician, Discussed with Nurse, Discussed with Patient and Discussed with Family
CT Scan: Image Personally Visualized and interpreted, Report Reviewed by me, Discussed with Physician, Discussed with Nurse and Discussed with Family
Labs: Labs Reviewed by me, Discussed with Physician, Discussed with Nurse, Discussed with Patient and Discussed with Family
Assessment / Plan
-
62 yo male with h/o ETOH use and no recent medical evaluation presenting with syncope x3. He was found to have liver lesions and a large adjacent hematoma on CT imaging and was taken to IR emergently for embolization of LHA. Afebrile but tachycardic
with mild hypoxia requiring O2. Reviewed CT and IR films of successful embolization. Hepatic lesions present with suspicion for HCC. Acute blood loss anemia present with slow downtrend of h/h s/p transfusion of 2 units of pRBCs. Suspect downtrend in
h/h secondary to equilibration post procedure and not further bleeding.
If active bleeding again suspected, would repeat imaging and attempt IR procedure once again. Given complexity of case/?HCC if surgery is required this hospitalization would recommend transfer to tertiary care center with hepatobiliary specialist.
Follow labs closely
Med onc consult pending for further oncologic work up
Given size of hematoma, high risk for ileus. Clears today but would hold off on further diet advancement for now
--- NOTE | 2023-07-21 13:50 | PTCARENOTE ---
Hgb resulted 7.6; Dr. Mercado aware and further order received. 1 unit PRBC initiated- see TAR. Pt. appetite poor but tolerating intake. Able to reposition self in bed. Call james rodriguez in reach.
--- NOTE | 2023-07-21 16:00 | CON.ONC ---
Impression
Impression
hepatic mass w/ associated hematoma
s/p IR guided embolization - LHA
h/o significant ETOH use/ abuse
Plan
Plan
1. Hepatic mass w/ associated hematoma
-s/p IR guided embolization of LHA
-surgery following
-these radiographic findings may represent underlying HCC
-patient would need to be stabilized prior to consideration of additional oncologic w/u - including biopsy for pathology
-check AFP
will continue to follow with you
Patient History
History of Present Illness
62y/o male seen in consultation today regarding liver mass.
The patient presented to the [facility] ER w/ weakness and near syncope. In the ER he was found to be hypotensive and hypothermic. Hemoglobin was 11.4g/dl. LFTs were elevated. CT imaging revealed a large partially exophytic left liver lobe
lesion measuring 8 cm with likely accompany hematoma about the central abdomen with moderate to large volume complex free fluid suggesting hemorrhage. This finding as per radiology was suspicious for HCC w/ hematoma. Additional smaller hepatic
lesions suspicious for malignancy were appreciated, possibly multifocal hepatocellular carcinoma.
The patient subsequently underwent IR guided embolization of the left hepatic artery. Hemoglobin is holding at 7.6g/dl. The patient has been seen by surgery, w/ no acute surgical plans.
Clinically, he notes increased fatigue. He has some discomfort in the abdomen. No SOB or chest pain.
Past-Medical/Surgical History
PMH:
ETOH use/ abuse
PSH:
none
SH:
h/o significant ETOH use/ abuse for many years - 2 six packs/ day at one point
no tobacco
FH: non-contributory
Allergies: NKDA
Patient Medication
�Medication �Instructions �Recorded �Confirmed �Last Taken �Type
No Meds [No Current Medications] 07/20/23 07/20/23 Unknown History
Active Medications
Generic Name Dose Route Start Last Admin
Trade Name Freq PRN Reason Stop Dose Admin
Acetaminophen 650 mg 07/20/23 19:28
Acetaminophen 325 Mg Tablet PO 08/17/23 19:27
Q6HPRN PRN
mild pain
Dextrose 12.5 grams 07/20/23 18:00
Dextrose 50% (0.5 Grams/Ml) 50 Ml Syringe IV 08/17/23 17:59
[id number] PRN
hypoglycemia
Protocol
Glucagon 1 mg 07/20/23 18:00
Glucagon 1 Mg Vial IM 08/17/23 17:59
PRN PRN
hypoglycemia - no IV access
Protocol
Sodium Chloride 1,000 mls @ 100 mls/hr 07/20/23 15:55 07/21/23 12:03
Nss IV 1,000 mls
.Q10H BISMARK Administration
Piperacillin Sod/Tazobactam Sod 3.375 gram in 50 mls @ 100 mls/hr 07/20/23 18:30 07/21/23 12:03
Zosyn IV 50 mls
Q6 BISMARK Administration
Vasopressin 20 units in 100 mls @ 0 mls/hr 07/20/23 17:15 07/21/23 03:47
Pitressin IV 100 mls
PER PROTOCOL BISMARK Administration
Protocol
Per Protocol
Norepinephrine Bitartrate 4 mg in 250 mls @ 0 mls/hr 07/20/23 19:00 07/20/23 19:06
Levophed IV 250 mls
PER PROTOCOL BISMARK Administration
Protocol
Per Protocol
Vancomycin HCl 750 mg in 150 mls @ 150 mls/hr 07/21/23 18:00
Vancocin IV
Q12H BISMARK
Protocol
Insulin Aspart 0 units 07/20/23 18:00 07/21/23 12:03
Insulin Aspart Low Resistance 300 Units/3 Ml Pen.Injctr SC 08/17/23 17:59 Not Given
Q6 BISMARK
Protocol
Morphine Sulfate 4 mg 07/21/23 13:18
Morphine 4 Mg/Ml Injection IV 08/04/23 13:17
Q2HPRN PRN
mod-severe pain
Sodium Chloride 0 flush 07/20/23 16:00
Sodium Chloride 0.9% (Flush) Syringe IV 08/17/23 15:59
PER PROTOCOL BISMARK
Review of Systems
-
A ROS was performed w/ pertinent findings as per HPI.
Physical Exam
-
General: Other (in ICU)
HEENT: Negative Jaundice
Cardiology: Other (tachycardic)
Pulmonary: Clear
GI: Soft and Distended
Neurology: Non Focal and Other (A&O x3)
Labs
Lab Results
WBC 14.5 10^3/uL (4.8-10.8) H 07/21/23 04:45
RBC 2.76 10^6/uL (4.70-6.10) L 07/21/23 04:45
Hgb 7.6 g/dL (13.0-18.0) L 07/21/23 12:08
Hct 21.1 % (39.0-52.0) L 07/21/23 12:08
MCV 87.7 fL (80.0-94.0) 07/21/23 04:45
MCH 31.5 pg (27.0-31.0) H 07/21/23 04:45
MCHC 36.0 g/dL (33.0-37.0) 07/21/23 04:45
RDW 16.4 % (11.5-14.5) H 07/21/23 04:45
Plt Count 141 10^3/uL (130-400) 07/21/23 04:45
MPV 11.8 fL (7.4-10.4) H 07/21/23 04:45
Abs Immat Gran (auto) 0.0 10^3/uL (0-0.05) 07/20/23 12:11
Absolute Neuts (auto) 8.0 10^3/uL (1.4-6.5) H 07/20/23 12:11
Absolute Lymphs (auto) 0.9 10^3/uL (1.2-3.4) L 07/20/23 12:11
Absolute Monos (auto) 0.4 10^3/uL (0.1-0.6) 07/20/23 12:11
Absolute Eos (auto) 0.0 10^3/uL (0-0.7) 07/20/23 12:11
Absolute Basos (auto) 0.0 10^3/uL (0-0.2) 07/20/23 12:11
Immature Gran % 0.4 % (0-0.5) 07/20/23 12:11
Neutrophils % 85.1 % (42.2-75.2) H 07/20/23 12:11
Lymphocytes % 9.9 % (20.5-51.1) L 07/20/23 12:11
Monocytes % 4.2 % (1.7-9.3) 07/20/23 12:11
Eosinophils % 0.1 % (0-6) 07/20/23 12:11
Basophils % 0.3 % (0-2) 07/20/23 12:11
Creatinine 0.9 mg/dL (0.7-1.3) 07/21/23 04:45
Vital Signs
Vital Signs
Temp Pulse Resp BP Pulse Ox
99.3 F 113 17 145/89 93
07/21/23 15:49 07/21/23 15:49 07/21/23 15:49 07/21/23 15:49 07/21/23 15:49
[2023-07-21 17:41] LABS: Glucose - Point of Care 96 mg/dl (70-99)
--- NOTE | 2023-07-21 17:47 | PTCARENOTE ---
pt received 2 units PRBC per orders- TAR. Remains on clear liq diet, poor appetite; reported nausea s/p eating lunch, self resolved. Remains off pressors today. Able to turn self in bed. Call james rodriguez in reach.
[2023-07-21] MEDS: TYLENOL 650 MG PO (19:54)
--- NOTE | 2023-07-21 20:00 | PTCARENOTE ---
Rec'd pt resting in bed, c/o upper abd pain, tylenol 650mg po given, MABRY, cooperative, ST w/ occas PVC, BP stable,R groin site intact, post tibial pulses palpable, pedals via doppler, on 2 liters nc sat was 89%, incr to 4 liters nc- sat 95, lungs
decr in bases, enc to use IS- reaches 1000, hypo bowel sounds, tender upper abd, abd soft, no n/v, david sips clears, lazcano draining yellow urine
[2023-07-21 20:58] LABS: Hematocrit 25.2 % (39.0-52.0); Mean Corp Hgb Conc. 36.9 g/dL (33.0-37.0); Mean Corpuscular Hgb 31.5 pg (27.0-31.0); Mean Corpuscular Volume 85.4 fL (80.0-94.0); Red Blood Cell Count 2.95 10^6/uL (4.70-6.10); Red Cell Dist. Width 15.4 % (11.5-14.5); White Blood Cell Count 11.3 10^3/uL (4.8-10.8)
[2023-07-21 21:03] LABS: Hemoglobin 9.3 g/dL (13.0-18.0)
[2023-07-21 21:08] LABS: Lactic Acid 1.4 mmol/L (0.7-2.0)
[2023-07-21 21:19] LABS: Glucose - Point of Care 110 mg/dl (70-99)
[2023-07-21 21:35] LABS: AFP Male/Tumor Marker > 9960 ng/ml
[2023-07-21 21:36] LABS: Mean Platelet Volume 11.2 fL (7.4-10.4); Platelet Count 79 10^3/uL (130-400)
[2023-07-22] VITALS (26 sets, daily range): BP systolic 99–158; BP diastolic 64–97; PULSE 111–123; O2SAT 93–95; BMI 26.0
--- NOTE | 2023-07-22 | PTCARENOTE ---
Sys reviewed, changes noted, chg bath done, linens changed
[2023-07-22] MEDS: MORPHINE SULFATE 2 MG IV (01:48)
--- NOTE | 2023-07-22 01:50 | PTCARENOTE ---
2 mg morphine iv given for pain
[2023-07-22] MEDS: TYLENOL 650 MG PO (03:29)
--- NOTE | 2023-07-22 03:30 | PTCARENOTE ---
sys reviewed, lungs decr in bases. fine left base crackles, tylenol 650mg po given for pain
[2023-07-22 03:42] LABS: Hematocrit 23.9 % (39.0-52.0); Hemoglobin 8.8 g/dL (13.0-18.0); Mean Corp Hgb Conc. 36.8 g/dL (33.0-37.0); Mean Corpuscular Hgb 31.5 pg (27.0-31.0); Mean Corpuscular Volume 85.7 fL (80.0-94.0); Mean Platelet Volume 11.8 fL (7.4-10.4); Platelet Count 68 10^3/uL (130-400); Red Blood Cell Count 2.79 10^6/uL (4.70-6.10); Red Cell Dist. Width 15.4 % (11.5-14.5); White Blood Cell Count 10.1 10^3/uL (4.8-10.8)
[2023-07-22 04:40] LABS: ALT (SGPT) 742 U/L (0-50); AST (SGOT) 1243 U/L (17-59); Albumin 2.7 g/dl (3.5-5.0); Alkaline Phosphatase 95 U/L (38-126); Blood Urea Nitrogen 18 mg/dl (9-20); Calcium 7.8 mg/dl (8.4-10.2); Carbon Dioxide 24 mmol/L (22-30); Chloride 110 mmol/L (98-107); Estimated Creatinine Clearance 112 ml/min; Glucose 95 mg/dl (70-99); Magnesium 1.9 mg/dl (1.6-2.3); Potassium 3.9 mmol/L (3.5-5.1); Sodium 138 mmol/L (135-145); Total Bilirubin 1.9 mg/dl (0.2-1.3); Total Protein 5.4 g/dl (6.3-8.2); eGFR > 60.00
[2023-07-22] MEDS: ZOSYN 50 IV ×5 (05:53→23:33)
[2023-07-22] MEDS: NSS 1000 IV ×2 (05:54→17:01)
--- NOTE | 2023-07-22 06:37 | W.PN.HOSP.TC ---
Today's Communication/Plan
-
.
Assessment / Plan
Assessment / Plan
Physical Exam
General: Appears acutely ill, no acute distress
HEENT: Normocephalic, Atraumatic, EOMI, MMM
Respiratory:Limited with some rales bilaterally
Cardiac: Normal S1/S2, Regular Rate and Rhythm
GI: Soft, mildly distended, no significant tenderness
Extremities: No Clubbing, Cyanosis
Neuro: Nonfocal/Grossly Intact
Psych: Calm, Cooperative
HPI: 62-year-old male non-smoker with no known past medical history presents with weakness and near syncopal events. 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 He felt nauseous today as well with reported vomiting.
#Hemorrhagic shock due to Left hepatic artery rupture with bleeding/ Massive intra-abdominal hematoma/ Lactic acidosis
Off pressers
Complained of abd discomfort, c/w IV Morphine for severe pain, add oral Oxy for mod to severe pain
Change Tylenol for fevers only due to elevated lFTs
Continue empiric antibiotics for leukocytosis
On Liquid diet now
HGB stable at 8-9 . WBC came down
# 8 cm left liver lobe lesion concerning for HCC/ smaller hepatic lesions suspicious for malignancy, possibly multifocal hepatocellular carcinoma./ Transaminitis
Likely shocked liver on underlying Liver tumor
#Acute hypoxic respiratory failure with hypoxia, tachypnea, respiratory distress,
Lung examination, bilateral Limited with some rales.
Will order stat chest x-ray
#Acute blood loss anemia
Status post 4 units packed red blood cells as total
continue to trend
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
#History of alcohol use
#Hyperglycemia
Hemoglobin A1c 5.1
Monitor hemoglobin
DVT prophylaxis�SCDs
Full code
Total time spent to see the patient on the floor, examine the patient, review data and lab results, discuss treatment plan with patient, consultants, nursing staff around 57 minutes.
Anticipated Discharge: > 48 hours
Subjective/Interval History
-
Date of Service: July 22, 2023
He feels sob
No chest pain, no abd pain
Objective Data
-
Labs:
Laboratory Results
07/21/23 07/22/23
20:51 03:24
WBC 11.3 H 10.1
Hgb 9.3 L D 8.8 L
Hct 25.2 L 23.9 L
Plt Count 79 L D 68 L
Sodium 138
Potassium 3.9
Chloride 110 H
Carbon Dioxide 24
BUN 18
Creatinine 0.5 L
Glucose 95
Calcium 7.8 L
Total Bilirubin 1.9 H
AST 1243 H*
ALT 742 H*
Alkaline Phosphatase 95
Vital Signs:
Vital Signs
Temp Pulse Resp BP Pulse Ox
99.6 F 98 13 117/75 93
07/22/23 03:45 07/22/23 06:00 07/22/23 06:00 07/22/23 06:00 07/22/23 06:00
I&O
07/20/23 07/21/23 07/22/23
06:59 06:59 06:59
Intake Total 2304.0 / 2511.5 4897.5 / 4897.5
Output Total 910 / 910 1710 / 1710
Balance 1394.0 / 1601.5 3187.5 / 3187.5
[2023-07-22 07:35] LABS: Glucose - Point of Care 90 mg/dl (70-99)
[2023-07-22] MEDS: ROXICODONE 5 MG PO ×2 (08:16→23:32)
--- NOTE | 2023-07-22 08:30 | PTCARENOTE ---
Received pt @ change of shift. Drowsy, awakens to verbal stim; Ox3; flat/forgetful. SR-ST w PVS' on monitor. +doppler pedal pulses. Remains off pressors. SpO2 94$ on 4LNC, shallow breaths/SANDHU. Auscultated dim breath sounds/ crackles @ bases.
Hypoactive BS, round/tender upper quadrants. Poor appetite, remains on clear liq diet. Grubbs in place draining clear/yellow urine. R groin dressing c/d/i. R IJ TL w NSS @ 100mL/hr infusing. Assisted x1 w RW OOB to chair, generalized weakness.
Tolerating chair position. Chair alarm active. Instructed on breathing exercises/IS again and pt. demonstrated understanding. Call ramirez in reach.
--- NOTE | 2023-07-22 09:10 | W.PN.INTV ---
Today's Communication / Plan
Recommendations
Give lasix today given mild acute CHF seen on CXR today
Trend H/H and transfuse if Hb<7g/dL
keep plt>50k
Hold antiplatelets/anticoagulants for now
Clear liquid diet and advance as tolerated
IR consult for paracentesis given his abdominal distension and SOB
Eventual liver biopsy to help obtain tissue for diagnosis of suspected HCC
Pain control
SCDs
Full code
Assessment
-
Assessment: 62-year-old male non-smoker with no known past medical history presents with weakness and near syncopal events. 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 He felt nauseous today as well with reported vomiting. Blood sugar for EMS was >200. He denies taking any medications and does not have any known medical history. In triage he was
hypotensive to 84/59, hypothermic to 95.6 �F, pulse rate 71, breathing at 16 breaths/min and saturating 98% on room air. Labs showed Hb of 11.4, platelets 163, INR 1.36, glucose 204, lactate 6.2 and elevated LFTs with negative troponin x 2. Blood
cultures were collected. Given his syncopal episode that was reported CT head was done which showed no acute intracranial abnormality. Given his abdominal/rib pain, a CTA/abdomen/pelvis with contrast was done showing no evidence of a central PE,
and a large partially exophytic left liver lobe lesion measuring 8 cm accompanying a massive hematoma about the central abdomen with moderate to large volume complex free fluid suggesting hemorrhage, and suggestive of active extravasation. This is
suspicious for a ruptured tumor like a HCC with hemorrhagic ascites. There are also distal paraesophageal varices. Patient was given fluids in the ER with NS 0.9% x 2L, vancomycin/Zosyn, Zofran and started on Levophed given BP remained in 70-80s.
Patient being admitted to the ICU and critical care services consulted for additional management/recommendations.
Chronic conditions [employer]: No known past medical history
Impression:
#Shock likely hemorrhagic +/- sepsis in the setting of intra-abdominal bleed with hemorrhagic ascites (suspected ruptured hepatic tumor, i.e. HCC)
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
#Hypothermia likely due to reduced PO intake in setting of possible sepsis
#Transaminitis - worsening
#Lactic acidosis - normalized
#Hyperglycemia - normalized
#Non-anion gap metabolic acidosis
#Anemia (unknown baseline)
#Hx of alcohol use
#Multiple pulmonary nodules including calcified granulomas and non-calcified nodules, including RLL 5mm nodule, and other scattered subcentimeter nodules in RUL + RMLe
Plan:
-IR performed celiac arteriogram and left hepatic artery arteriogram on 07/20/2023, with a large hypervascular mass within the left lobe predominantly supplied by the left hepatic artery. Embolization of the left hepatic artery performed with small
amount of beads followed by Gelfoam slurry. No further signs of bleeding seen by the procedures end.
- He received 2 units PRBC on 07/19, and another 2 units pn 07/20
- Trend Hb with serial H/H; transfuse if active bleed or if Hb <7g/dL; keep plt>50k, INR<2
- Maintain MAP>65
- prn albumin 25g 25% if needed for hypotension
- If bleed returns then general surgery will need to intervene
- Oncology consulted given concern for HCC; once stable he should obtain liver Bx + paracentesis to help obtain tissue for diagnosis
- He is distended in his abdomen and this is causing discomfort and shortness of breath so a paracentesis is needed regardless
- Give lasix today given mild acute CHF seen on CXR today
- Trend LFTs
- Continue ABx with Zosyn and follow up infectious workup with BCx
- No need for IV vanco given negative MRSA swab and little suspicion for PNA
- Maintain SpO2 >90-94%
- Replete electrolytes with K>4, Mg>2
- Ok for clear liquids for now - ADAT
- Maintain euglycemia with goal BG 140-180; use low-resistance ISS
- prn nebulized bronchodilators
- Incentive spirometer
- DVT ppx - SCDs for now; hold antiplatelets/anticoagulants for now
Total time spent today was 75 minutes for this encounter. Time includes reviewing laboratory test/imaging results, reviewing pertinent medical records, obtaining and reviewing medical history, performing an appropriate exam, ordering medications,
tests and procedures. Time also includes documentation of this encounter, coordinating patient care and communicating with other healthcare professionals. Total time does not include separately billed tests performed on this date of service.
Data:
CXR 07-22-2023: Mild CHF with small bilateral pleural effusions and bibasilar atelectasis.
CTA Chest/Abd/Pelvis with Contrast 07-20-2023:
No evidence of central pulmonary embolism.
Large partially exophytic in the left lobe measuring at least 8 cm with likely accompanying massive accompanying hematoma about the central abdomen and moderate to large volume complex free fluid suggesting hemorrhage, centered about the large left
lobe lesion with some likely active contrast extravasation. Findings are suspicious for ruptured tumor such as hepatocellular carcinoma with accompanying large hematoma and with moderate to large volume mildly complex free fluid/hemorrhage.
Additional smaller hepatic lesions suspicious for malignancy, possibly multifocal hepatocellular carcinoma.
Distal paraesophageal varices.
Cholelithiasis.
Embolization 07-20-2023: Embolization of the left hepatic artery feeding a large hypervascular and bleeding tumor using a combination of embospheres and gel foam slurry.
Subjective Dataa
Subjective Data
Date of Service:
Date of Service: July 22, 2023
Chief Complaint: Client Service Associate Follow Up
Subjective:
Seen and evaluated today at bedside. Afebrile overnight although he does have low-grade fever of 99.9 �F overnight. Hb 8.8 this morning and platelet count is 68. LFTs are now worsening. He still says that he has abdominal discomfort and
shortness of breath. He is currently saturating 95% on 4 L/min, heart rate 102 which rises to 120 with movement, and BP 152/84.
Review of Systems
General: Other (Negative unless mentioned above)
Objective Data
Data Reviewed
Vital Signs / I&O / Oxygen:
Vital Signs
Temp Pulse Resp BP Pulse Ox
99.7 F 105 23 143/87 95
07/22/23 11:55 07/22/23 11:00 07/22/23 11:00 07/22/23 11:00 07/22/23 11:00
Intake and Output
07/21/23 07/22/23 07/23/23
06:59 06:59 06:59
Intake Total 2304.0 / 2511.5 4897.5 / 4997.5 790 / 790
Output Total 910 / 910 1710 / 1785 300 / 300
Balance 1394.0 / 1601.5 3187.5 / 3212.5 490 / 490
SaO2 95
Nasal Cannula flow liters per 4
minute
Physical Exam
General: Respiratory Distress (mild) and Chills (negative)
HEENT: Normocephalic and Anicteric
Cardiovascular: S1-S2, Peripheral Edema (negative) and Other (Tachycardic)
Respiratory: Wheeze (negative), Crackles (negative), Rhonchi (negative) and Accessory Resp Muscle Use (Mild)
GI: Distended, Tender (periumbilical region) and Normal Bowel Sounds
Neurology: AO x 3 and Tremors (negative)
Skin: Warm and Dry
Labs/Micro/Reports
Lab Data
07/22/23 03:24
07/22/23 03:24
Microbiology
07/21/23 00:39 Urine Urine Culture - Final
NO GROWTH
07/20/23 12:19 Blood/Venous Blood Culture - Preliminary
No Growth in 24 hours- Final report to follow
07/20/23 12:19 Blood/Venous Blood Culture - Preliminary
No Growth in 24 hours- Final report to follow
07/20/23 16:40 Nose Nasal Screen MRSA (PCR) - Final
MRSA not detected - performed by PCR methodology.
--- NOTE | 2023-07-22 10:33 | W.PN.GS2 ---
Today's Communication / Plan
-
No concerns for small bowel obstruction.
Follow-up with Dr. Bauman in 2 to 3 weeks.
Assessment / Plan
-
Assessment:
62-year-old male who presented with abdominal pain with 3 episodes of syncope. Was found to have hepatic mass with associated hematoma on CT scan, s/p IR guided embolization of left hepatic artery. Patient reports abdominal pain has dissipated,
passing flatus and having bowel movements. Denies nausea, vomiting, abdominal pain.
Plan:
Postop pain resolved. No concerns for abdominal obstruction.
Patient afebrile, leukocytosis resolved.
Follow-up with Dr. Bauman in 2 to 3 weeks.
Defer to primary team for discharge.
Surgery will sign off.
Reconsult as needed.
Subjective Data
-
Date of Service: July 22, 2023
Objective Data
-
Intake and Output
07/21/23 07/22/23/
06:59 06:59 06:59
Intake Total 2304.0 / 2511.5 4897.5 / 4997.5 440 / 440
Output Total 910 / 910 1710 / 1785 150 / 150
Balance 1394.0 / 1601.5 3187.5 / 3212.5 290 / 290
Intake:
Oral fluids 340 / 340 240 / 240
IV fluids (Total) 1554.0 / 1761.5 3107.5 / 3207.5 200 / 200
Nss 1,000 ml @ 100 mls/hr IV . 1000 / 1200 3100 / 3200 200 / 200
Q10H BISMARK Rx#:[id number]
levophed 455.0 / 462.5 7.5 / 7.5
vasopressin 99 / 99
IV piggybacks 350 / 350
Blood Products 500 / 500 600 / 600
Packed red blood cells 500 / 500 600 / 600
Blood Product Amount Infused ( 250 / 250 500 / 500
mL)
Packed Rbc Leukoreduced Unit 250 / 250
[id number]
Packed Rbc Leukoreduced Unit 250 / 250
[id number]
Packed Rbc Leukoreduced Unit 250 / 250
[id number]
Output:
Urine, Grubbs 910 / 910 1710 / 1785 150 / 150
Vital Signs
Temp Pulse Resp BP Pulse Ox
99.3 F 103 18 132/84 94
07/22/23 07:44 07/22/23 08:11 07/22/23 08:11 07/22/23 08:11 07/22/23 08:23
Lab Results
07/22/23 03:24
07/22/23 03:24
Calcium 7.8 mg/dl (8.4-10.2) L 07/22/23 03:24
Phosphorus 2.0 mg/dl (2.5-4.5) L 07/22/23 03:24
Magnesium 1.9 mg/dl (1.6-2.3) 07/22/23 03:24
Total Bilirubin 1.9 mg/dl (0.2-1.3) H 07/22/23 03:24
AST 1243 U/L (17-59) H* 07/22/23 03:24
ALT 742 U/L (0-50) H* 07/22/23 03:24
Alkaline Phosphatase 95 U/L (38-126) 07/22/23 03:24
Total Protein 5.4 g/dl (6.3-8.2) L 07/22/23 03:24
Albumin 2.7 g/dl (3.5-5.0) L 07/22/23 03:24
Physical Exam
-
General: Awake, alert and oriented x3, not in distress and holds appropriate conversation.
Respiratory: Normal respiratory effort, in no respiratory distress,
Gastrointestinal: Mildly distended, soft, nontender, no guarding or rigidity
Skin: Warm.
[2023-07-22 11:39] LABS: Glucose - Point of Care 123 mg/dl (70-99)
[2023-07-22] MEDS: NEUTRA-PHOS POWDER PACKET 500 MG PO ×2 (12:38→19:28)
[2023-07-22] MEDS: FLEXBUMIN 100 IV ×2 (12:38→17:44)
--- NOTE | 2023-07-22 12:50 | W.PN.GS2 ---
Addendum entered and electronically signed by Narciso Bauman MD 07/22/23 20:33:
I saw and examined the patient independently.
The resident's note was reviewed and I agree with the note, assessment and plan except where noted below.
Comment: 62-year-old male with bleeding liver mass and significant hemoperitoneum status post IR guided embolization of the left hepatic artery. He has received 4 units of blood over the past 2 days, but thankfully his hemoglobin levels appears to
be stable. He is still tachycardic and intermittently hypotensive.
Okay for liquids.
Continue to trend hemoglobin.
With concern for rebleed recommend repeat IR embolization.
General surgery will continue to follow.
Original Note:
Today's Communication / Plan
-
Successful embolization, no indication for surgery at this time
Repeat CBC, Okay to downgrade if Hb syabilizes.
Assessment / Plan
-
Assessment:
Mr. Rivera is a 62-year-old male with history of EtOH abuse, who presented with 3 episodes of syncope, was found to have a liver mass with associated large adjacent hematoma on CT scan. S/p IR guided embolization of left hepatic artery. Reported
Passing Flatus but No Bowel Movement yet. Tolerating liquid diet, mild abdominal pain resolving, denies nausea, and vomiting.
Plan:
Successful embolization, mild tachycardia otherwise stable vital signs.
Patient is afebrile, white count is normalized.
Hemoglobin down to 8.8, repeat CBC, okay to go the floor if Hb stabilizes.
No indication for surgical intervention at this point.
General surgery will continue to follow.
Subjective Data
-
Date of Service: July 22, 2023
Objective Data
-
Intake and Output
07/21/23 07/22/23 07/23/23
06:59 06:59 06:59
Intake Total 2304.0 / 2511.5 4897.5 / 4997.5 1070 / 1070
Output Total 910 / 0 0 / 1785 300 / 300
Balance 1394.0 / 1601.5 3187.5 / 3212.5 770 / 770
Intake:
Oral fluids 340 / 340 360 / 360
IV fluids (Total) 1554.0 / 1761.5 3107.5 / 3207.5 600 / 600
Nss 1,000 ml @ 100 mls/hr IV . 1000 / 1200 3100 / 3200 600 / 600
Q10H [facility] Rx#:[id number]
levophed 455.0 / 462.5 7.5 / 7.5
vasopressin 99 / 99
IV piggybacks 350 / 350 110 / 110
Blood Products 500 / 500 600 / 600
Packed red blood cells 500 / 500 600 / 600
Blood Product Amount Infused ( 250 / 250 500 / 500
mL)
Packed Rbc Leukoreduced Unit 250 / 250
[id number]
Packed Rbc Leukoreduced Unit 250 / 250
[id number]
Packed Rbc Leukoreduced Unit 250 / 250
[id number]
Output:
Urine, Grubbs 910 / 0 1709 / 178 300 / 300
Vital Signs
Temp Pulse Resp BP Pulse Ox
99.7 F 105 23 143/87 95
07/22/23 11:55 07/22/23 11:00 07/22/23 11:00 07/22/23 11:00 07/22/23 11:00
Lab Results
07/22/23 03:24
Calcium 7.8 mg/dl (8.4-10.2) L 07/22/23 03:24
Phosphorus 2.0 mg/dl (2.5-4.5) L 07/22/23 03:24
Magnesium 1.9 mg/dl (1.6-2.3) 07/22/23 03:24
Total Bilirubin 1.9 mg/dl (0.2-1.3) H 07/22/23 03:24
AST 1243 U/L (17-59) H* 07/22/23 03:24
ALT 742 U/L (0-50) H* 07/22/23 03:24
Alkaline Phosphatase 95 U/L (38-126) 07/22/23 03:24
Total Protein 5.4 g/dl (6.3-8.2) L 07/22/23 03:24
Albumin 2.7 g/dl (3.5-5.0) L 07/22/23 03:24
Physical Exam
-
General: Awake, alert and oriented x3, not in distress and holds appropriate conversation.
Respiratory: Normal respiratory effort, no respiratory distress,
Gastrointestinal: soft, mildly tender to palpation, no guarding or rigidity.
Skin: Warm and dry..
Psychiatric: Normal mood, normal affect, normal judgement and insight and normal mentation
--- NOTE | 2023-07-22 13:39 | PTCARENOTE ---
Pt. remains OOB to chair. VSS. Tolerating meals, poor intake approx 25%. CXR reviewed by Dr. Lozano- further orders received- see APR. Sister to bedside this AM, updated on plan of care. Chair alarm active. Call ramirez in reach.
[2023-07-22] MEDS: LASIX 40 MG IV (15:26)
[2023-07-22 15:38] LABS: Hematocrit 24.5 % (39.0-52.0); Mean Corp Hgb Conc. 36.7 g/dL (33.0-37.0); Mean Corpuscular Hgb 31.8 pg (27.0-31.0); Mean Corpuscular Volume 86.6 fL (80.0-94.0); Mean Platelet Volume 11.2 fL (7.4-10.4); Platelet Count 71 10^3/uL (130-400); Red Blood Cell Count 2.83 10^6/uL (4.70-6.10); Red Cell Dist. Width 15.7 % (11.5-14.5)
[2023-07-22 17:11] LABS: Glucose - Point of Care 100 mg/dl (70-99)
--- NOTE | 2023-07-22 18:58 | PTCARENOTE ---
Pt. remained OOB x8H today. Assisted into BR x 1 w RW, gen weakness/unsteady gait. Small BM in BR. Assisted back to bed; able to reposition self in bed. Appetite remains poor; abd pain improving; denies nausea. Remains on 4LNC, SpO2 94%, SANDHU.
IVF d/c'd per order. IV albumin x 2- see APR. Received IV Lasix in between albumin infusions, diuresing well. Mx family to bedside today, updated. Call ramirez in reach. Bed alarm active.
--- NOTE | 2023-07-22 20:00 | PTCARENOTE ---
Rec'd pt resting in bed, cooperative, follows commands, ST w/ occas pvc, bp stable, pedal pulses via doppler, O2 4 liters nc, lungs decr in bases, sat 94, enc to use IS- reaches 1000, + SANDHU, hypo bowel sounds, no bm, abd distedned, round, tender
upper quad, david clear liquids, no n/v, lazcano draining yellow urine
[2023-07-22 22:02] LABS: Glucose - Point of Care 112 mg/dl (70-99)
--- NOTE | 2023-07-22 23:30 | PTCARENOTE ---
sys reviewed, sat 88 on 4 litersnc, o2 incr to 6 liters nc, lungs w/ crackles 1/2 up bilat, decr in bases, Chris Ornelas NP aware- order rec'd for cxr in am; tylenol 1 gm po given for temp 101, oxycodone 5mg po given for pain, CHG bath done, linens
changed
[2023-07-22] MEDS: TYLENOL 1000 MG PO (23:32)
[2023-07-23] VITALS (58 sets, daily range): BP systolic 83–146; BP diastolic 61–96; PULSE 108; O2SAT 93; BMI 25.9
[2023-07-23 03:39] LABS: Hematocrit 21.2 % (39.0-52.0); Hemoglobin 7.8 g/dL (13.0-18.0); Mean Corp Hgb Conc. 36.8 g/dL (33.0-37.0); Mean Corpuscular Hgb 32.1 pg (27.0-31.0); Mean Corpuscular Volume 87.2 fL (80.0-94.0); Mean Platelet Volume 10.7 fL (7.4-10.4); Platelet Count 59 10^3/uL (130-400); Red Blood Cell Count 2.43 10^6/uL (4.70-6.10); Red Cell Dist. Width 15.2 % (11.5-14.5); White Blood Cell Count 7.3 10^3/uL (4.8-10.8)
[2023-07-23 04:02] LABS: ALT (SGPT) 733 U/L (0-50); Alkaline Phosphatase 84 U/L (38-126); Blood Urea Nitrogen 13 mg/dl (9-20); Calcium 7.8 mg/dl (8.4-10.2); Carbon Dioxide 31 mmol/L (22-30); Chloride 105 mmol/L (98-107); Estimated Creatinine Clearance 112 ml/min; Glucose 104 mg/dl (70-99); Phosphorus 2.3 mg/dl (2.5-4.5); Potassium 3.6 mmol/L (3.5-5.1); Sodium 137 mmol/L (135-145); Total Bilirubin 2.8 mg/dl (0.2-1.3); Total Protein 5.6 g/dl (6.3-8.2); eGFR > 60.00
--- NOTE | 2023-07-23 04:16 | PTCARENOTE ---
sys reviewed, lungs unch,sat 93 on 6 liters nc
[2023-07-23 04:18] LABS: AST (SGOT) 839 U/L (17-59)
[2023-07-23] MEDS: ZOSYN 50 IV (05:04)
--- NOTE | 2023-07-23 06:23 | W.PN.HOSP.TC ---
Today's Communication/Plan
-
Re-culture blood
Ordered Gram stain for ascitic fluid with paracentesis today. Liver Bx
Change ABx to cover SBP
Give two units of blood
IV Albumin, pain control
Lasix therapy
Screen for Hep C and B
Assessment / Plan
Assessment / Plan
Physical Exam
General: not acutely ill, no acute distress
HEENT: Normocephalic, Atraumatic, EOMI, MMM
Respiratory:Limited with some rales bilaterally
Cardiac: Normal S1/S2, Regular Rate and Rhythm
GI: Soft, distended, no significant tenderness
Extremities: No Clubbing, Cyanosis
Neuro: Nonfocal/Grossly Intact
Psych: Calm, Cooperative
HPI: 62-year-old male non-smoker with no known past medical history presents with weakness and near syncopal events. 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 He felt nauseous today as well with reported vomiting.
# Liver mass with elevated tumor marker, possible HCC
Pt reported previous drug use( in college). Also he was rejected for blood donation in past due to Hep C Abs.
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
- History of heavy alcohol use but not recent
# fever over night
Re-culture blood
suspect SBP
# Abdominal ascites
For paracentesis today, added gram stain since he had fevers? could be SBP , will change ABx to meropenem
Await results of ascitic fluid testing. WBC normalized
IV Albumin
Pain control
#Hemorrhagic shock due to Left hepatic artery rupture with bleeding/ Massive intra-abdominal hematoma/ Lactic acidosis
Off pressers
Complained of abd discomfort, c/w IV Morphine for severe pain, added oral Oxy for mod to severe pain
Changed Tylenol for fevers only due to elevated lFTs
Continue empiric antibiotics for leukocytosis
On Liquid diet now
HGB stable at 7.8, will give another two units
# 8 cm left liver lobe lesion concerning for HCC/ smaller hepatic lesions suspicious for malignancy, possibly multifocal hepatocellular carcinoma./
- Transaminitis, liver enzymes are coming down
Likely shocked liver on underlying Liver tumor
#Acute hypoxic respiratory failure with hypoxia, tachypnea, respiratory distress,
Lung examination, bilateral Limited with some rales. Now on 6 liters
Paracentesis will help also to reduce O2 requirement
Chest x ray c/w pulmonary edema , give BID Lasix which will help with extra- volume of blood transfusion
#Acute blood loss anemia
Status post 4 units packed red blood cells, will give another two units
continue to trend
DVT prophylaxis�SCDs
Full code
Total time spent to see the patient on the floor, examine the patient, review data and lab results, discuss treatment plan with patient, consultants, nursing staff around 59 minutes.
Anticipated Discharge: > 48 hours
Subjective/Interval History
-
Date of Service: July 23, 2023
Pt no complaints
Night team: fever over night, needed higher O2 at 6 liters. No significant abd pain
Objective Data
-
Labs:
Laboratory Results
07/23/23
03:25
WBC 7.3
Hgb 7.8 L
Hct 21.2 L
Plt Count 59 L
Sodium 137
Potassium 3.6
Chloride 105
Carbon Dioxide 31 H
BUN 13
Creatinine 0.5 L
Glucose 104 H
Calcium 7.8 L
Total Bilirubin 2.8 H
AST 839 H*
ALT 733 H*
Alkaline Phosphatase 84
Vital Signs:
Vital Signs
Temp Pulse Resp BP Pulse Ox
99.7 F 81 15 120/78 95
07/23/23 04:00 07/23/23 06:00 07/23/23 06:00 07/23/23 06:00 07/23/23 06:00
I&O
07/21/23 07/22/23 07/23/23
06:59 06:59 06:59
Intake Total 2304.0 / 2511.5 4897.5 / 4997.5 2110 / 2110
Output Total 910 / 910 1710 / 1785 3725 / 3725
Balance 1394.0 / 1601.5 3187.5 / 3212.5 -1615 / -1615
--- NOTE | 2023-07-23 07:00 | PTCARENOTE ---
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 Patient is a bit drowsy, but AAOx3. He is on 6L nasal cannula, with bilateral crackles in bases. He is dyspneic on exertion. crackles are more audible L>R. He is SR, ST on monitor. Neurovascular checks as
charted in worklist. Patient's abdomen is firm, tender, very distended. Due to get paracentesis. Grubbs is draining yellow urine. received lasix this morning. Due to receive one unit of pRBCs. will review orders, call ramirez within reach.
[2023-07-23] MEDS: LASIX 20 MG IV (07:34)
[2023-07-23 07:53] LABS: Glucose - Point of Care 106 mg/dl (70-99)
--- NOTE | 2023-07-23 09:13 | W.PN.INTV ---
Today's Communication / Plan
Recommendations
1U PRBC given today
Trend H/H and transfuse if Hb<7g/dL
keep plt>50k
Hold antiplatelets/anticoagulants for now
Clear liquid diet and advance as tolerated
Oncology on board to help diagnose suspected HCC
Pain control
SCDs
Full code
Assessment
-
Assessment: 62-year-old male non-smoker with no known past medical history presents with weakness and near syncopal events. 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 He felt nauseous today as well with reported vomiting. Blood sugar for EMS was >200. He denies taking any medications and does not have any known medical history. In triage he was
hypotensive to 84/59, hypothermic to 95.6 �F, pulse rate 71, breathing at 16 breaths/min and saturating 98% on room air. Labs showed Hb of 11.4, platelets 163, INR 1.36, glucose 204, lactate 6.2 and elevated LFTs with negative troponin x 2. Blood
cultures were collected. Given his syncopal episode that was reported CT head was done which showed no acute intracranial abnormality. Given his abdominal/rib pain, a CTA/abdomen/pelvis with contrast was done showing no evidence of a central PE,
and a large partially exophytic left liver lobe lesion measuring 8 cm accompanying a massive hematoma about the central abdomen with moderate to large volume complex free fluid suggesting hemorrhage, and suggestive of active extravasation. This is
suspicious for a ruptured tumor like a HCC with hemorrhagic ascites. There are also distal paraesophageal varices. Patient was given fluids in the ER with NS 0.9% x 2L, vancomycin/Zosyn, Zofran and started on Levophed given BP remained in 70-80s.
Patient being admitted to the ICU and critical care services consulted for additional management/recommendations.
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
Impression:
#Shock likely hemorrhagic +/- sepsis in the setting of intra-abdominal bleed with hemorrhagic ascites (suspected ruptured hepatic tumor, i.e. HCC) - shock state resolved
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
#Hypothermia likely due to reduced PO intake in setting of possible sepsis - hypothermia now resolved
#Febrile
#Elevated AFP concerning for primary HCC
#SBP
#Portal hypertension
#Transaminitis -improving
#Lactic acidosis - normalized
#Hyperglycemia - normalized
#Non-anion gap metabolic acidosis
#Anemia (unknown baseline)
#Hx of alcohol use
#HCV Ab (+)
#Multiple pulmonary nodules including calcified granulomas and non-calcified nodules, including RLL 5mm nodule, and other scattered subcentimeter nodules in RUL + RMLe
Plan:
-IR performed celiac arteriogram and left hepatic artery arteriogram on 07/20/2023, with a large hypervascular mass within the left lobe predominantly supplied by the left hepatic artery. Embolization of the left hepatic artery performed with small
amount of beads followed by Gelfoam slurry. No further signs of bleeding seen by the procedures end.
- He received 2 units PRBC on 07/19, and another 2 units pn 07/20 and another 1 unit today
- Trend Hb with serial H/H; transfuse if active bleed or if Hb <7g/dL; keep plt>50k, INR<2
- Maintain MAP>65
- prn albumin 25g 25% if needed for hypotension
- If bleed returns then general surgery will need to intervene
- Oncology consulted given concern for HCC; when able, we will obtain abdominal MRI to aid in diagnosis of hepatocellular carcinoma
- He is distended in his abdomen and this is causing discomfort and shortness of breath so a paracentesis is needed regardless - underwent para today and removed 1.5L of bloody fluid. This helped him greatly, and he was even able to toelrate eating
afterwards
- Gave lasix on 07/21, CXR looks ok today, no additional lasix needed.
- Trend LFTs
- Check HCV RNA to assess viral load
- Continue ABx (given recurrent fevers, Zosyn was changed to meropenem on 07/22) and follow up infectious workup with BCx
- No need for IV vanco given negative MRSA swab and little suspicion for PNA
- Maintain SpO2 >90-94%
- Replete electrolytes with K>4, Mg>2
- Ok for clear liquids for now - ADAT
- Maintain euglycemia with goal BG 140-180
- prn nebulized bronchodilators
- Incentive spirometer encouraged
- DVT ppx - SCDs for now; hold antiplatelets/anticoagulants for now
Total time spent today was 50 minutes for this encounter. Time includes reviewing laboratory test/imaging results, reviewing pertinent medical records, obtaining and reviewing medical history, performing an appropriate exam, ordering medications,
tests and procedures. Time also includes documentation of this encounter, coordinating patient care and communicating with other healthcare professionals. Total time does not include separately billed tests performed on this date of service.
Data:
CXR 07-23-2023:
1. Right internal jugular central venous catheter in position.
2. Hypoaerated lungs with bibasilar subsegmental atelectatic changes.
CXR 07-22-2023: Mild CHF with small bilateral pleural effusions and bibasilar atelectasis.
CTA Chest/Abd/Pelvis with Contrast 07-20-2023:
No evidence of central pulmonary embolism.
Large partially exophytic in the left lobe measuring at least 8 cm with likely accompanying massive accompanying hematoma about the central abdomen and moderate to large volume complex free fluid suggesting hemorrhage, centered about the large left
lobe lesion with some likely active contrast extravasation. Findings are suspicious for ruptured tumor such as hepatocellular carcinoma with accompanying large hematoma and with moderate to large volume mildly complex free fluid/hemorrhage.
Additional smaller hepatic lesions suspicious for malignancy, possibly multifocal hepatocellular carcinoma.
Distal paraesophageal varices.
Cholelithiasis.
Embolization 07-20-2023: Embolization of the left hepatic artery feeding a large hypervascular and bleeding tumor using a combination of embospheres and gel foam slurry.
Subjective Dataa
Subjective Data
Date of Service:
Date of Service: July 23, 2023
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
Subjective:
Pt seen this AM. Underwent para today 1500cc of bloody ascitic fluid. He feels much better after the paracentesis. Still having abdominal discomfort but it is better. He is currently on 2 L/min nasal cannula, saturating 93%. He has been spiking
fevers since yesterday afternoon with a Tmax of 101 �F. Current heart rate 109 and BP 122/79. Hb this morning 7.8 and 1 unit PRBC was transfused. He denies chest pain, headache, or diarrhea.
Review of Systems
General: Other (Negative unless mentioned above)
Objective Data
Data Reviewed
Vital Signs / I&O / Oxygen:
Vital Signs
Temp Pulse Resp BP Pulse Ox
99.3 F 78 12 122/84 94
07/23/23 07:42 07/23/23 08:45 07/23/23 08:45 07/23/23 08:45 07/23/23 08:50
Intake and Output
07/22/23 07/23/23 07/24/23
06:59 06:59 06:59
Intake Total 4897.5 / 4997.5 2110 / 2110 125 / 125
Output Total 1710 / 1785 3725 / 3725 100 / 100
Balance 3187.5 / 3212.5 -1615 / -1615 25 / 25
SaO2 94
Nasal Cannula flow liters per 6
minute
Physical Exam
General: Respiratory Distress (Negative), Comfortable and Chills (negative)
HEENT: Normocephalic and Anicteric
Cardiovascular: S1-S2, Peripheral Edema (negative) and Other (Tachycardic)
Respiratory: Wheeze (negative), Crackles (negative), Rhonchi (negative) and Accessory Resp Muscle Use (Mild)
GI: Distended, Tender (periumbilical region) and Normal Bowel Sounds
Neurology: AO x 3 and Tremors (negative)
Skin: Warm and Dry
Labs/Micro/Reports
Lab Data
07/23/23 03:25
07/23/23 03:25
Microbiology
07/20/23 12:19 Blood/Venous Blood Culture - Preliminary
No Growth in 48 hours- Final report to follow
07/20/23 12:19 Blood/Venous Blood Culture - Preliminary
No Growth in 48 hours- Final report to follow
07/21/23 00:39 Urine Urine Culture - Final
NO GROWTH
07/20/23 16:40 Nose Nasal Screen MRSA (PCR) - Final
MRSA not detected - performed by PCR methodology.
--- NOTE | 2023-07-23 09:30 | PTCARENOTE ---
Patient due to go to IR, reviewed orders with Dr. Lozano, 2 units of blood to be transfused changed to 1.
--- NOTE | 2023-07-23 09:42 | W.PN.UPDATE ---
Update Note
Progress Note Update
Hemoglobin and vitals have mostly stabilized following embolization of the large HCC.
We will perform paracentesis today.
He does not likely need biopsy of the liver mass - the combination of hypervascular mass, cirrhosis and elevated AFP is diagnostic of HCC. I also would not pursue high risk biopsy of a tumor that recently has been associated with life threatening
bleeding.
--- NOTE | 2023-07-23 10:10 | PTCARENOTE ---
Took patient to IR on monitor, once unit of blood had completed.
--- NOTE | 2023-07-23 11:07 | W.PN.SURGUPD ---
Surgical Update
Surgical Update
Attempted to see patient, currently down in IR receiving paracentesis. Chart reviewed. Hb drifted down to 7.8. Tachycardia has improved, and BP stable. Unlikely to have continued active clinically significant bleeding. Evidence of some liver
dysfunction post embolization with downtrending platelets, rising bilirubin, and LFTs. Repeat coags ordered. Role of surgical intervention here at is limited, no plans for surgical intervention at this time. Recommend transfer to tertiary
care/transplant center should this be needed.
[2023-07-23 11:30] LABS: Body Fluid LDH 378 U/L; Body Fluid Protein 2.5 g/dl
[2023-07-23 11:31] LABS: Body Fluid Mononuclear 23.6 %; Body Fluid Polymorphonuclear 76.4 %; Body Fluid WBC 2410 /CUMM
--- NOTE | 2023-07-23 11:39 | PTCARENOTE ---
Returned from IR. 1500ml of fluid/blood taken out during paracentesis.
[2023-07-23 12:17] LABS: Body Fluid Second Tech EM
[2023-07-23] MEDS: MERREM 500 MG IV ×3 (12:54→23:52)
[2023-07-23] MEDS: STERILE WATER FOR INJECTION 10 ML IV ×3 (12:54→23:52)
--- NOTE | 2023-07-23 13:23 | CM ---
CM following re: discharge planning.
Reviewed pt's chart, met with pt.
Pt is a 62 year old male, admitted with primary dx of Liver mass with elevated tumor marker, possible HCC.
Pt reports he lives with sister in a 2SH, 2 steps to enter, has no children, has 8 supportive sisters and brothers, supportive nieces and nephews. 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 Pt stated he is not sure whether or not he can
walk now, expressed feelings of being very weak.
PCP: Pt stated he does not have PCP, declined an offer to have a list of PCP.
Pharmacy: Pt stated he does not have one because he did not need one.
D/C plan: uncertain at this time and will depend on pt's progresses.
CM will follow with discharge plan updates as hospitalization progresses
[2023-07-23] MEDS: NEUTRA-PHOS POWDER PACKET 500 MG PO (13:28)
[2023-07-23] MEDS: TYLENOL 650 MG PO (13:28)
[2023-07-23 13:46] LABS: INR 1.42; PT 17.2 Sec (11.4-14.6)
[2023-07-23 14:05] LABS: Hepatitis B Surface Antigen Negative (Negative)
[2023-07-23 14:23] LABS: Hepatitis B Surface Antibody Negative; Hepatitis C Antibody Reactive (Negative)
--- NOTE | 2023-07-23 16:10 | W.PN.ONC ---
Today's Communication / Plan
-
See updated plan.
Impression
Impression
hepatic mass w/ associated hematoma, hepatocellular carcinoma by criteria of radiographic findings and markedly elevated alpha-fetoprotein
s/p IR guided embolization - LHA
h/o significant ETOH use/ abuse
Plan
Plan
1. Hepatic mass w/ associated hematoma
-s/p IR guided embolization of LHA
-surgery following
-these radiographic findings may represent underlying HCC
-patient would need to be stabilized prior to consideration of additional oncologic w/u - including biopsy for pathology
Continue supportive care following embolization and bleeding. I did discuss with him the likelihood that this is indeed hepatocellular carcinoma. Agree with plans that a biopsy is not necessary. As he improves, we will discuss options of systemic
therapy.
Subjective/Objective
Subjective/Objective
He is feeling reasonably well. He is having little in the way of pain. Physical examination is unchanged.
Vital Signs:
Vital Signs
Temp Pulse Resp BP Pulse Ox
102 F H 109 22 122/79 93
07/23/23 14:10 07/23/23 15:00 07/23/23 15:00 07/23/23 14:45 07/23/23 15:00
Lab Results:
Laboratory Data
WBC 7.3 10^3/uL (4.8-10.8) 07/23/23 03:25
Hgb 7.8 g/dL (13.0-18.0) L 07/23/23 03:25
Plt Count 59 10^3/uL (130-400) L 07/23/23 03:25
PT 17.2 Sec (11.4-14.6) H 07/23/23 13:26
INR 1.42 07/23/23 13:26
APTT 25.2 Sec (23.4-35.0) 07/20/23 13:19
eGFR > 60.00 07/23/23 03:25
[2023-07-23] MEDS: TYLENOL 325 MG PO (19:12)
--- NOTE | 2023-07-23 19:15 | PTCARENOTE ---
Rec'd pt sitting on chair, denies pain at present, oriented, ST w/ occas pvc, Temp 101.4- tylenol 325 mg po given as ordered, pedal pulses via doppler, no edema, skin warm/dry,O2 6 liters nc, lungs decr in bases, crackles 1/2 up Left, crackles 1/4
up R, resp shallow,enc to use IS- reaches 1000, sat 94, Resp easier after paracentesis per pt, + bowel sounds, abd round, no n/v, david clear liquids, lazcano was dc'd prior to this shift, pt has urinal within reach, due to void at 0100
[2023-07-23 19:55] LABS: Blood Urea Nitrogen 13 mg/dl (9-20); Calcium 8.1 mg/dl (8.4-10.2); Carbon Dioxide 28 mmol/L (22-30); Chloride 99 mmol/L (98-107); Estimated Creatinine Clearance 112 ml/min; Glucose 187 mg/dl (70-99); Magnesium 1.9 mg/dl (1.6-2.3); Sodium 134 mmol/L (135-145); eGFR > 60.00
[2023-07-23 20:06] LABS: Procalcitonin 0.22 ng/ml (0.0-0.25)
[2023-07-23 20:20] LABS: Phosphorus 1.8 mg/dl (2.5-4.5)
[2023-07-23] MEDS: KCL 100 IV (20:31)
--- NOTE | 2023-07-23 20:32 | PTCARENOTE ---
40 kcl/100 hung over 2hr per order
[2023-07-23] MEDS: SODIUM PHOSPHATE 255 MEQ IV (21:02)
--- NOTE | 2023-07-23 21:09 | PTCARENOTE ---
20 sodium phos hung over 4 hr per order
--- NOTE | 2023-07-23 22:32 | PTCARENOTE ---
Addendum entered by Zahra Mcdaniel RN 07/23/23 22:34:
assisted to bed
Original Note:
amb to bathroom w/ walker, had sm brown bm, voided 200 ml urine, o2 decr to 2 liters nc
--- NOTE | 2023-07-23 23:55 | PTCARENOTE ---
sys reviewed, changes noted, CHG bath done, linens changed
[2023-07-24] VITALS (24 sets, daily range): BP systolic 105–148; BP diastolic 70–93; BMI 24.7; BMI 24.6
--- NOTE | 2023-07-24 03:47 | PTCARENOTE ---
sys reviewed, lungs w/ crackles 1/4 up on Left, crackles R base, decr in bases
[2023-07-24 03:59] LABS: Hematocrit 25.9 % (39.0-52.0); Mean Corp Hgb Conc. 36.7 g/dL (33.0-37.0); Mean Corpuscular Hgb 31.8 pg (27.0-31.0); Mean Corpuscular Volume 86.6 fL (80.0-94.0); Mean Platelet Volume 10.7 fL (7.4-10.4); Platelet Count 85 10^3/uL (130-400); Red Blood Cell Count 2.99 10^6/uL (4.70-6.10); Red Cell Dist. Width 15.5 % (11.5-14.5); White Blood Cell Count 6.5 10^3/uL (4.8-10.8)
[2023-07-24 04:10] LABS: Hemoglobin 9.5 g/dL (13.0-18.0)
[2023-07-24 04:14] LABS: ALT (SGPT) 528 U/L (0-50); AST (SGOT) 429 U/L (17-59); Albumin 2.9 g/dl (3.5-5.0); Alkaline Phosphatase 91 U/L (38-126); Blood Urea Nitrogen 13 mg/dl (9-20); Calcium 7.9 mg/dl (8.4-10.2); Carbon Dioxide 29 mmol/L (22-30); Chloride 101 mmol/L (98-107); Estimated Creatinine Clearance 112 ml/min; Glucose 105 mg/dl (70-99); Phosphorus 2.2 mg/dl (2.5-4.5); Potassium 3.3 mmol/L (3.5-5.1); Sodium 135 mmol/L (135-145); Total Bilirubin 3.7 mg/dl (0.2-1.3); Total Protein 5.7 g/dl (6.3-8.2); eGFR > 60.00
[2023-07-24 04:22] LABS: Procalcitonin 0.23 ng/ml (0.0-0.25)
[2023-07-24] MEDS: KCL 100 IV (04:32)
--- NOTE | 2023-07-24 04:38 | PTCARENOTE ---
40 kcl/ 100 hung over 4 hr per order
[2023-07-24] MEDS: SODIUM PHOSPHATE 255 MEQ IV (04:41)
--- NOTE | 2023-07-24 04:42 | PTCARENOTE ---
20 na phos hung over 4 hr per order
[2023-07-24] MEDS: MERREM 500 MG IV ×3 (05:38→17:48)
[2023-07-24] MEDS: STERILE WATER FOR INJECTION 10 ML IV ×3 (05:38→17:47)
--- NOTE | 2023-07-24 06:34 | W.PN.HOSP.TC ---
Today's Communication/Plan
-
.
Assessment / Plan
Assessment / Plan
Physical Exam
General: not acutely ill, no acute distress
HEENT: Normocephalic, Atraumatic, EOMI, MMM
Respiratory:Limited with some rales bilaterally
Cardiac: Normal S1/S2, Regular Rate and Rhythm
GI: Soft, distended, no significant tenderness
Extremities: No Clubbing, Cyanosis
Neuro: Nonfocal/Grossly Intact
Psych: Calm, Cooperative
HPI: 62-year-old male non-smoker with no known past medical history presents with weakness and near syncopal events. 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 He felt nauseous today as well with reported vomiting.
# Liver mass with elevated tumor marker, c/w HCC
Pt reported previous drug use( in college). Also he was rejected for blood donation in past due to Hep C Antibodies. Serology + Hep C AB , await RNA test
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
- History of heavy alcohol use but not recent
Appreciate oncology help
# SBP with high PMN count in ascitic fluid
s/p paracentesis on 07/22. 1500 cc of dark bloody ascitic fluid was evacuated
Re-culture blood 07/22 and culture ascitic fluid
Started on Meropenem
IV Albumin for 48 hours
Repeat paracentesis in 48 hours.
Appreciate ID help
#Hemorrhagic shock due to Left hepatic artery rupture with bleeding/ Massive intra-abdominal hematoma/ Lactic acidosis
#Acute blood loss anemia
Status post 6 units packed red blood cells
Off pressers
Complained of abd discomfort, c/w IV Morphine for severe pain, added oral Oxy for mod to severe pain
Changed Tylenol for fevers only due to elevated lFTs
Appreciate surgery help
# Hypokalemia, replace
# 8 cm left liver lobe lesion concerning for HCC/ smaller hepatic lesions suspicious for malignancy, possibly multifocal hepatocellular carcinoma./
- Transaminitis, liver enzymes are coming down
Likely shocked liver on underlying Liver tumor
#Acute hypoxic respiratory failure with hypoxia, tachypnea, respiratory distress,
Lung examination, bilateral Limited with some rales. Now on 2 liters after paracentesis
Chest x ray c/w pulmonary edema , given Lasix on 06/22
DVT prophylaxis�SCDs
Full code
Total time spent to see the patient on the floor, examine the patient, review data and lab results, discuss treatment plan with patient, consultants, nursing staff around 59 minutes.
Anticipated Discharge: > 48 hours
Subjective/Interval History
-
Date of Service: July 24, 2023
Mild abdominal discomfort
Mild fevers
less O2 requirement
Objective Data
-
Labs:
Laboratory Results
07/23/23 07/24/23
19:25 03:38
WBC 6.5
Hgb 9.5 L D
Hct 25.9 L
Plt Count 85 L D
Sodium 134 L 135
Potassium 3.0 L 3.3 L
Chloride 99 101
Carbon Dioxide 28 29
BUN 13 13
Creatinine 0.4 L 0.4 L
Glucose 187 H 105 H
Calcium 8.1 L 7.9 L
Total Bilirubin 3.7 H
AST 429 H
ALT 528 H*
Alkaline Phosphatase 91
Vital Signs:
Vital Signs
Temp Pulse Resp BP Pulse Ox
100 F 101 14 121/74 95
07/24/23 05:37 07/24/23 06:00 07/24/23 06:00 07/24/23 06:00 07/24/23 06:11
I&O
07/22/23 07/23/23 07/24/23
06:59 06:59 06:59
Intake Total 4897.5 / 4997.5 0 / 2110 1983 / 1983
Output Total 1710 / 1785 3725 / 3725 1875 / 187
Balance 3187.5 / 3212.5 -1615 / -1615 109 / 109
--- NOTE | 2023-07-24 09:08 | W.PN.INTV ---
Addendum entered and electronically signed by Juan Carlos Lozano MD 07/24/23 18:23:
Of note, because he continues to have poor oral intake because of his abdominal distention and reduced appetite, I will order a multivitamin for him. Encouraged him to drink Ensure and encourage p.o. intake in general. Continue PT/OT as well as
pain control. He should follow-up closely once he is discharged with oncology.
Original Note:
Today's Communication / Plan
Recommendations
1U PRBC given yesterday - Hb stable
Trend H/H and transfuse if Hb<7g/dL
keep plt>50k
Hold antiplatelets/anticoagulants for now
Low residue diet - advance as tolerated
Oncology on board to help diagnose suspected HCC
Pain control
SCDs
Full code
Patient stable for downgrade out of ICU to telemetry. Replanter/Pulmonary service will now sign off. Please reconsult if there are any additional questions/concerns, or if patient's respiratory status deteriorates.
Assessment
-
Assessment: 62-year-old male non-smoker with no known past medical history presents with weakness and near syncopal events. 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 He felt nauseous today as well with reported vomiting. Blood sugar for EMS was >200. He denies taking any medications and does not have any known medical history. In triage he was
hypotensive to 84/59, hypothermic to 95.6 �F, pulse rate 71, breathing at 16 breaths/min and saturating 98% on room air. Labs showed Hb of 11.4, platelets 163, INR 1.36, glucose 204, lactate 6.2 and elevated LFTs with negative troponin x 2. Blood
cultures were collected. Given his syncopal episode that was reported CT head was done which showed no acute intracranial abnormality. Given his abdominal/rib pain, a CTA/abdomen/pelvis with contrast was done showing no evidence of a central PE,
and a large partially exophytic left liver lobe lesion measuring 8 cm accompanying a massive hematoma about the central abdomen with moderate to large volume complex free fluid suggesting hemorrhage, and suggestive of active extravasation. This is
suspicious for a ruptured tumor like a HCC with hemorrhagic ascites. There are also distal paraesophageal varices. Patient was given fluids in the ER with NS 0.9% x 2L, vancomycin/Zosyn, Zofran and started on Levophed given BP remained in 70-80s.
Patient being admitted to the ICU and critical care services consulted for additional management/recommendations.
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
Impression:
#Shock likely hemorrhagic +/- sepsis in the setting of intra-abdominal bleed with hemorrhagic ascites (suspected ruptured hepatic tumor, i.e. HCC) - shock state resolved
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
#Hypothermia likely due to reduced PO intake in setting of possible sepsis - hypothermia now resolved
#Febrile illness (recurrent) - this is likely malignancy-driven, but DDx also includes sepsis
#Elevated AFP concerning for primary HCC
#Elevated PMNs in ascitic fluid - unlikely SBP given malignancy related intra-abdominal hemorrhage
#Portal hypertension
#Transaminitis -improving
#Lactic acidosis - normalized
#Hyperglycemia
#Non-anion gap metabolic acidosis - resolved
#Anemia (unknown baseline) � required multiple blood products with last on 07/23/2023 at 7:14 AM; Hb now stable
#Hx of alcohol use
#HCV Ab (+)
#Multiple pulmonary nodules including calcified granulomas and non-calcified nodules, including RLL 5mm nodule, and other scattered subcentimeter nodules in RUL + RML
Plan:
-IR performed celiac arteriogram and left hepatic artery arteriogram on 07/20/2023, with a large hypervascular mass within the left hepatic lobe predominantly supplied by the left hepatic artery. Embolization of the left hepatic artery performed
with small amount of beads followed by Gelfoam slurry. No further signs of bleeding seen by the procedure's end.
- He received 2 units PRBC on 07/19, and another 2 units pn 07/20 and another 1 unit on 07/22
- Trend Hb with serial H/H; transfuse if active bleed or if Hb <7g/dL; keep plt>50k, INR<2
- Maintain MAP>65
- prn albumin 25g 25% if needed for hypotension
- If abdominal bleed returns then general surgery will need to intervene
- Oncology consulted given concern for HCC; defer to oncology regarding any additional workup needed to confirm this is hepatocellular carcinoma
- He is distended in his abdomen and this is causing discomfort and shortness of breath so a paracentesis is needed regardless - underwent para on 07/22 and removed 1.5L of bloody fluid. This helped him greatly, and he was even able to toelrate
eating afterwards � follow-up cytopathology and fluid culture from paracentesis (so far pending)
- Gave lasix on 07/21, CXR looks ok on 07/22, no additional lasix needed.
- Trend LFTs
- Check HCV RNA to assess viral load - pending
- Continue ABx (given recurrent fevers, Zosyn was changed to meropenem on 07/22) and follow up infectious workup with BCx
- ID consult placed - recs appreciated
- No need for IV vanco given negative MRSA swab and little suspicion for PNA
- Maintain SpO2 >90-94%
- Replete electrolytes with K>4, Mg>2
- Ok for oral diet, and he was upgraded to low residue diet today. Continue to ADAT
- Maintain euglycemia with goal BG 140-180
- prn nebulized bronchodilators
- Incentive spirometer encouraged
- DVT ppx - SCDs for now; hold antiplatelets/anticoagulants for now
Patient stable for downgrade out of ICU to telemetry. Replanter/Pulmonary service will now sign off. Thank you for allowing us to be involved in the care of this patient. Please reconsult if there are any additional questions/concerns, or if
patient's respiratory status deteriorates.
Total time spent today was 35 minutes for this encounter. Time includes reviewing laboratory test/imaging results, reviewing pertinent medical records, obtaining and reviewing medical history, performing an appropriate exam, ordering medications,
tests and procedures. Time also includes documentation of this encounter, coordinating patient care and communicating with other healthcare professionals. Total time does not include separately billed tests performed on this date of service.
Data:
CXR 07-23-2023:
1. Right internal jugular central venous catheter in position.
2. Hypoaerated lungs with bibasilar subsegmental atelectatic changes.
CXR 07-22-2023: Mild CHF with small bilateral pleural effusions and bibasilar atelectasis.
CTA Chest/Abd/Pelvis with Contrast 07-20-2023:
No evidence of central pulmonary embolism.
Large partially exophytic in the left lobe measuring at least 8 cm with likely accompanying massive accompanying hematoma about the central abdomen and moderate to large volume complex free fluid suggesting hemorrhage, centered about the large left
lobe lesion with some likely active contrast extravasation. Findings are suspicious for ruptured tumor such as hepatocellular carcinoma with accompanying large hematoma and with moderate to large volume mildly complex free fluid/hemorrhage.
Additional smaller hepatic lesions suspicious for malignancy, possibly multifocal hepatocellular carcinoma.
Distal paraesophageal varices.
Cholelithiasis.
Embolization 07-20-2023: Embolization of the left hepatic artery feeding a large hypervascular and bleeding tumor using a combination of embospheres and gel foam slurry.
Subjective Dataa
Subjective Data
Date of Service:
Date of Service: July 24, 2023
Chief Complaint: Replanter Follow Up
Subjective:
Spiked fever overnight to 100.4 �F with Tmax in last 24 hours of 102�F. He feels well, however, walking around with the assistance of the nurse, just went to the bathroom, had a bowel movement with no bloody stool seen. He says he feels much
better overall, still has some abdominal discomfort but it is much better than when he first arrived. Currently saturating 91% on room air, heart rate 111, BP 138/85. He denies chest pain, headache, chills.
Review of Systems
General: Other (Negative unless mentioned above)
Objective Data
Data Reviewed
Vital Signs / I&O / Oxygen:
Vital Signs
Temp Pulse Resp BP Pulse Ox
99.4 F 92 14 110/80 97
07/24/23 07:37 07/24/23 09:00 07/24/23 09:00 07/24/23 09:00 07/24/23 09:00
Intake and Output
07/23/23 07/24/23 07/25/23
06:59 06:59 06:59
Intake Total 2109 / 2109 1983 / 1983
Output Total 3725 / 3725 1875 / 1875
Balance -1615 / -1615 109 / 109
SaO2 97
Nasal Cannula flow liters per 2
minute
Physical Exam
General: Respiratory Distress (Negative), Comfortable and Chills (negative)
HEENT: Normocephalic and Anicteric
Cardiovascular: S1-S2, Peripheral Edema (negative) and Other (Tachycardic mainly with activity)
Respiratory: Wheeze (negative), Crackles (negative), Rhonchi (negative) and Accessory Resp Muscle Use (Mild)
GI: Soft, Distended, Tender (periumbilical region) and Normal Bowel Sounds
Neurology: AO x 3 and Tremors (negative)
Skin: Warm and Dry
Labs/Micro/Reports
Lab Data
07/24/23 03:38
07/24/23 03:38
Laboratory Results
07/23/23
13:26
PT 17.2 H
INR 1.42
Microbiology
07/23/23 10:52 Peritoneal Fluid Body Fluid Culture - Preliminary
No Growth After 18-24 Hours
07/23/23 10:52 Peritoneal Fluid Gram Stain - Preliminary
07/20/23 12:19 Blood/Venous Blood Culture - Preliminary
No Growth in 72 hours- Final report to follow
07/20/23 12:19 Blood/Venous Blood Culture - Preliminary
No Growth in 72 hours- Final report to follow
07/21/23 00:39 Urine Urine Culture - Final
NO GROWTH
07/20/23 16:40 Nose Nasal Screen MRSA (PCR) - Final
MRSA not detected - performed by PCR methodology.
--- NOTE | 2023-07-24 09:15 | PTCARENOTE ---
Rec'd pt at 0800 resting in bed. Initially sleeping but awaken easily to verbal stimuli and is alert and oriented. Affect is somewhat flat but will readily answer questions as well as ask them. Speech is clear. MABRY. Stood to void at the bedside and
did not feel dizzy with standing. Skin is icteric in color. R groin and R Lower abd puncture sites wnl. Respirs are shallow- does tend to get SANDHU and tachypnic on exertion but not at rest. O2 on at 2l nc with sats of 96%. Bs are decreased at the
bases with few base crackles. Getting about 1500 mls on IS. Monitor SR. + pulses. DP pulses with the doppler. Tr pedal edema. Feet are wm bilat. VS as documented. Abd is sl distended and soft/round with + BS. States he is not nauseated but also not
hungry. Taking sips of liquids. Voiding dk faraz urine in the urinal. Capped int intact L arm. RIJ TLC intact- currently all ports capped after KCL rider and Na Phos riders just completed. Pt able to help with repositioning. Call ramirez in reach. Plan
of care reviewed with pt.
--- NOTE | 2023-07-24 10:31 | CON.ID ---
Consultation
-
Date/Time Consultation Requested: 07/24/2023 09:46
Date/Time Consultation Performed: 07/24/2023 1011
Requesting Provider: Dr. Carlson
Performing Provider: Dr. Manrique
Reason for Consultation: SBP
Chief Complaint / Past History
History of Present Illness
Andrade Rivera is a 62-year-old man being evaluated at the request of Dr. Carlson in regards to possible SBP. History is obtained from chart review, along with patient interview.
The patient presented to [facility] on 07/20/2023 secondary to syncope/near syncope. According to reviewed ER notes the patient was at work and he felt he was about to pass out at least 3 times. He was not initially found to have a
leukocytosis, but did have a left shift. He was started on broad-spectrum empiric antibiotics. Imaging subsequently revealed a left liver lobe lesion measuring 8 cm and a suspected hematoma in the central abdomen. He underwent embolization of the
left hepatic artery that day. Over the next several days he was stabilized, and yesterday a paracentesis was performed. Results were concerning for an elevated white count and possible SBP. Infectious Diseases is asked to comment upon further
antimicrobial therapy.
Patient denies any history of trauma to the abdomen. He denies any outpatient fevers or chills. He denies any significant abdominal discomfort prior to admission.
Past History
Past Medical History: None
Past Surgical History: None
Allergy History:
No Known Allergies Allergy (Verified 07/20/23 12:28)
Medications Reviewed: Yes
Current Antibiotics:
Meropenem 500 mg IV q6h
Social History
Tobacco: Non-Smoker
Alcohol: Chronic Alcoholic
Drug: None
Personal: Single
Living: With Family
Employment: Employed
Family History
Family History: Not Pertinent
Review of Systems
Vital Signs
Temp Pulse Resp BP Pulse Ox
99.4 F 92 14 110/80 97
07/24/23 07:37 07/24/23 09:00 07/24/23 09:00 07/24/23 09:00 07/24/23 09:00
Physical Exam
Physical Exam
Constitutional: No Acute Distress, Comfortable, Chronically Ill and Non-toxic
Head: Normocephalic
Eyes: No Conjunctival Hemorrhage and Other (Mild scleral icterus)
Oral: No Thrush and No Ulcers
Cardiovascular: S1/S2; Negative S3/S4 or Murmur
Pulmonary: Non Labored; Negative Wheezes, Rales or Rhonchi
Gastrointestinal: Soft, Distended, Normal Bowel Sounds, No Rebound and No Guarding
Genito-Urinary: Negative CVA Tenderness
Extremities: Edema; Negative Cyanosis or Erythema
Skin: Warm and Dry; Negative Rash or Jaundice
Neurological: Awake, Alert and Oriented
Psychological: Calm
Lab / Diagnostic Study Results
07/24/23 03:38
07/24/23 03:38
Abs Immat Gran (auto) 0.0 10^3/uL (0-0.05) 07/20/23 12:11
Absolute Neuts (auto) 8.0 10^3/uL (1.4-6.5) H 07/20/23 12:11
Absolute Lymphs (auto) 0.9 10^3/uL (1.2-3.4) L 07/20/23 12:11
Absolute Monos (auto) 0.4 10^3/uL (0.1-0.6) 07/20/23 12:11
Absolute Basos (auto) 0.0 10^3/uL (0-0.2) 07/20/23 12:11
Immature Gran % 0.4 % (0-0.5) 07/20/23 12:11
Neutrophils % 85.1 % (42.2-75.2) H 07/20/23 12:11
Lymphocytes % 9.9 % (20.5-51.1) L 07/20/23 12:11
Monocytes % 4.2 % (1.7-9.3) 07/20/23 12:11
Eosinophils % 0.1 % (0-6) 07/20/23 12:11
Basophils % 0.3 % (0-2) 07/20/23 12:11
PT 17.2 Sec (11.4-14.6) H 07/23/23 13:26
INR 1.42 07/23/23 13:26
Lactic Acid 1.4 mmol/L (0.7-2.0) 07/21/23 20:51
Procalcitonin 0.23 ng/ml (0.0-0.25) 07/24/23 03:38
Ur Squamous Epith Cells >30 /LPF (Few) 07/21/23 00:39
Microbiology Results
Micro:
07/23/23 10:52 Body Fluid Culture - Preliminary
Peritoneal Fluid No Growth After 18-24 Hours
Gram Stain - Preliminary
07/23/23 13:26 Blood Culture - Pending
Blood/Venous
07/23/23 12:49 Blood Culture - Pending
Blood/Venous
07/20/23 12:19 Blood Culture - Preliminary
Blood/Venous No Growth in 72 hours- Final report to follow
07/20/23 12:19 Blood Culture - Preliminary
Blood/Venous No Growth in 72 hours- Final report to follow
07/21/23 00:39 Urine Culture - Final
Urine NO GROWTH
07/20/23 16:40 Nasal Screen MRSA (PCR) - Final
Nose MRSA not detected - performed by PCR methodology.
Imaging:
07/20/2023 CT abdomen/pelvis: Large partially exophytic in the left lobe measuring at least 8 cm with likely accompanying massive accompanying hematoma about the central abdomen and moderate to large volume complex free fluid suggesting hemorrhage,
centered about the large left lobe lesion with some likely active contrast extravasation. Findings are suspicious for ruptured tumor such as hepatocellular carcinoma with accompanying large hematoma and with moderate to large volume mildly complex
free fluid/hemorrhage.
Additional smaller hepatic lesions suspicious for malignancy, possibly multifocal hepatocellular carcinoma. Distal paraesophageal varices.
Assessment / Plan
Liver mass with elevated tumor markers; suspected HCC
Abnormal ascites fluid
- SBP possible, although ascites fluid difficult to interpret in the context of significant blood.
Leukocytosis; improved
Transaminitis
Markedly elevated AFP
Hep C positive
Fevers
- infection vs tumor fever
Recommendations:
Continue with empiric antibiotics for the present.
Follow white count and temperature curve.
Await further culture data to guide antimicrobial selection versus de-escalation versus discontinuation.
Care Review
Plan reviewed with: Physician (Critical Care)
--- NOTE | 2023-07-24 10:45 | PTCARENOTE ---
Pt assisted oob using a walker to the bathroom for loose tannish stool and urine in the toilet. Complete CHG bath given. Pt shaved with denisse. Currently resting oob in the chair. No complaints offered. Ready to eat some breakfast. O2 taken off and
currently sats are 90-92%. Denies shortness of breath. VS as documented. Valeria ramirez in reach. Pts sister in earlier and updated.
[2023-07-24] MEDS: FLEXBUMIN 50 IV ×2 (11:18→17:59)
[2023-07-24] MEDS: FLUSH (NSS) 2 FLUSH IV ×2 (11:20→12:15)
--- NOTE | 2023-07-24 12:28 | W.PN.ONC2 ---
Today's Communication / Plan
-
Follow-up CBC daily
DIC panel in am
Monitor for bleeding
Impression
Impression
hepatic mass w/ associated hematoma, hepatocellular carcinoma by criteria of radiographic findings and markedly elevated alpha-fetoprotein
Acute blood loss anemia s/p IR guided embolization - LHA
h/o significant ETOH use/ abuse
Acute thrombocytopenia
ascites status post Paracentesis 07/22 1500cc drained
Hepatitis C antibody positive, awaiting RNA
Plan
Plan
-s/p IR guided embolization of LHA
-surgery following
-CT may represent underlying HCC
-follow para cytology. If nondiagnostic then may need to proceed with a triple phase CT or MRI of the abdomen for diagnostic criteria with AFP 9900
-Follow hepatitis C RNA
-Monitor for etiology of thrombocytopenia including infections, medications, liver disease. No splenomegaly on CT. blood culture, urine culture, and ascites fluid are negative to date
Subjective/Objective
Subjective
100.4 Fahrenheit no hypoxia or hypotension
Denies pain
Denies overt bleeding
Feeling bloated after breakfast
Nonbloody bowel movements
Vital Signs:
Vital Signs
Temp Pulse Resp BP Pulse Ox
100 F 92 14 110/80 97
07/24/23 10:37 07/24/23 09:00 07/24/23 09:00 07/24/23 09:00 07/24/23 09:00
Lab Results:
Laboratory Data
WBC 6.5 10^3/uL (4.8-10.8) 07/24/23 03:38
Hgb 9.5 g/dL (13.0-18.0) L D 07/24/23 03:38
Plt Count 85 10^3/uL (130-400) L D 07/24/23 03:38
PT 17.2 Sec (11.4-14.6) H 07/23/23 13:26
INR 1.42 07/23/23 13:26
APTT 25.2 Sec (23.4-35.0) 07/20/23 13:19
eGFR > 60.00 07/24/23 03:38
Physical Exam
HEENT: Moist Mucous Membranes; No Jaundice
Cardiology: Normal Sinus Rhythm
Pulmonary: Clear
GI: Soft and Distended
Extremities: Pulses Present; No Edema
Neuro: Non Focal
Review of Systems
Review of Systems
Review of systems notable for subjective, otherwise negative
--- NOTE | 2023-07-24 13:08 | PTCARENOTE ---
Remains resting oob in the chair. Abd is more distended. Pt admits to feeling 'bloated' after eating but no nausea. Oncology PA in to see pt and updated. Tolerating RA with sats of 93%. Will continue to monitor
--- NOTE | 2023-07-24 14:38 | CM ---
CM following re: discharge planning.
Discussed in rounds, reviewed pt's chart, met with pt. pt's sister at bedside. Pt with hepatic mass w/ associated hematoma, continue supportive care, oncology and ID following.
PT and OT evaluations noted - home PT vs SNF recommended. pt has no insurance and it will limit pt's ability to get SNF or outpatient services.
Pt lives with sister in a 2SH, 2 steps to enter, has no children, has 8 supportive sisters and brothers, supportive nieces and nephews and pt is independent in all areas [employer].
D/c plan: most likely home with family support. Sister to transport at discharge.
CM will follow with discharge plan updates as hospitalization progresses
--- NOTE | 2023-07-24 14:53 | PN.CDI ---
Addendum entered and electronically signed by Rusty Carlson MD 07/24/23 15:56:
Acute non-cardiac pulmonary edema due to fluid overload
Original Note:
CDI
- -
CDI:
Physician Documentation Request
Admit Date: 07/20/23 14:48
Dear Doctor Aldo,
Please review the following and provide your response in the progress notes.
Clinical Indicators:
07/18 Pt. admitted with syncope, hemorrhagic shock
07/21 Sales Manager Note: 'Give lasix today given mild acute CHF seen on CXR today'
07/22 PN: 'Chest x ray c/w pulmonary edema , give BID Lasix which will help with extra- volume of blood transfusion....Status post 4 units packed red blood cells, will give another two units'
Please clarify the acuity and etiology of the pulmonary edema:
Acute non-cardiac pulmonary edema due to fluid overload
Transfusion associated circulatory overload (TACO)
Acute pulmonary edema due to heart failure (please specify type and acuity)
Other
Use of terms such as suspected, likely, concern for, or probable (associated with a specific diagnosis that is being evaluated, monitored, or treated as if it exists) are acceptable and can be coded in the inpatient setting, when documented at the
time of discharge.
Thank you,
Sangeeta Velásquez RN, BSN
CDI Specialist
Available via [place] [employer]
Please use your independent medical judgment in providing your response.
[2023-07-24] MEDS: TYLENOL 325 MG PO (15:05)
--- NOTE | 2023-07-24 15:10 | PTCARENOTE ---
Tylenol 325 mg po given for Temp 101.2. Remains resting oob in the chair. Family at the bedside.
--- NOTE | 2023-07-24 16:41 | PTCARENOTE ---
Used walker to walk to the bathroom. Gait steady with the walker. Overall assessment is unchanged. Admits to some intermittent abd discomfort. Loose tannish/green stool on the commode along with urine. Remains sitting oob in the chair. IV team in
earlier and pt with 2 peripheral IV Sites. Will have RIJ TLC removed per md order. Call ramirez in reach
[2023-07-24] MEDS: THERAGRAN 1 TABLET PO (17:12)
[2023-07-24] MEDS: FLUSH (NSS) 1 FLUSH IV (17:48)
--- NOTE | 2023-07-24 18:08 | PTCARENOTE ---
IV team in and [facility] dc'd. Pt currently flat until 183. Site [facility]
--- NOTE | 2023-07-24 18:20 | VATNOTE ---
MD order to remove triple lumen central line. Removed intact following hospital policy with bed in trendelenberg position. Sterile dressing applied after direct pressure for 5 minutes. Dry and intact at time of leaving room. Primary care RN aware.
--- NOTE | 2023-07-24 18:46 | W.PN.GS2 ---
Today's Communication / Plan
-
ADAT
Assessment / Plan
-
Assessment:
Mr. Rivera is a 62-year-old male with history of EtOH abuse, who presented with 3 episodes of syncope, was found to have a liver mass with associated large adjacent hematoma on CT scan. S/p IR guided embolization of left hepatic artery. AFP
significantly elevated, high suspicion for HCC.
Passing Flatus and BMs. Tolerating liquid diet, mild abdominal pain resolving, denies nausea, and vomiting.
Plan:
Successful embolization, mild tachycardia otherwise stable vital signs.
Patient is afebrile, white count is normalized.
Appropriate reponse to transfusion
No indication for surgical intervention at this point.
Adv diet as david
Will follow peripherally
Subjective Data
-
Date of Service: July 24, 2023
No complaints
Objective Data
-
Intake and Output
07/23/23 07/24/23 07/25/23
06:59 06:59 06:59
Intake Total 2109 / 0 1983 / 2072 768 / 768
Output Total 3725 / 3725 1875 / 1875 300 / 300
Balance -1615 / -1615 109 / 198 468 / 468
Intake:
Oral fluids 760 / 760 950 / 950 490 / 490
IV fluids (Total) 1000 / 1000 534 / 623 178 / 178
KCL 150 / 175 50 / 50
Nss 1,000 ml @ 100 mls/hr IV . 1000 / 1000
Q10H [facility] Rx#:[id number]
Sodium Phos 384 / 448 128 / 128
IV piggybacks 350 / 350
Blood Products 250 / 250 100 / 100
Albumin 25% 100 / 100
Packed red blood cells 250 / 250
Blood Product Amount Infused ( 250 / 250
mL)
Packed Rbc Leukoreduced Unit 250 / 250
[id number]
Output:
Urine, Grubbs 3725 / 3725 1675 / 1675
Urine, Voided 200 / 200 300 / 300
Other:
Number of approximated MODERATE 1
amounts of urine
Vital Signs
Temp Pulse Resp BP Pulse Ox
99.6 F 96 22 123/76 93
07/24/23 18:00 07/24/23 18:00 07/24/23 18:00 07/24/23 18:00 07/24/23 18:00
Lab Results
07/24/23 03:38
07/24/23 03:38
Calcium 7.9 mg/dl (8.4-10.2) L 07/24/23 03:38
Phosphorus 2.2 mg/dl (2.5-4.5) L 07/24/23 03:38
Magnesium 2.0 mg/dl (1.6-2.3) 07/24/23 03:38
Total Bilirubin 3.7 mg/dl (0.2-1.3) H 07/24/23 03:38
AST 429 U/L (17-59) H 07/24/23 03:38
ALT 528 U/L (0-50) H* 07/24/23 03:38
Alkaline Phosphatase 91 U/L (38-126) 07/24/23 03:38
Total Protein 5.7 g/dl (6.3-8.2) L 07/24/23 03:38
Albumin 2.9 g/dl (3.5-5.0) L 07/24/23 03:38
Physical Exam
-
Gen: NAD
Abd: soft, mild ttp to upper abd, mild distention to upper abd
[2023-07-25] VITALS (10 sets, daily range): BP systolic 100–146; BP diastolic 58–88; PULSE 105; O2SAT 95
[2023-07-25] MEDS: MERREM 500 MG IV ×3 (00:25→11:56)
[2023-07-25] MEDS: STERILE WATER FOR INJECTION 10 ML IV ×3 (00:26→11:56)
[2023-07-25] MEDS: TYLENOL 325 MG PO ×2 (01:26→15:28)
[2023-07-25] MEDS: FLEXBUMIN 50 IV (01:27)
--- NOTE | 2023-07-25 04:55 | PTCARENOTE ---
Pt transferred to [facility]. Pt aaox3, no reports of pain. Intermittently febrile with tmax 101.4. PRN tylenol given x 1. Vital signs stable. Lungs clear, on room air. No N/V or stool this shift. Pt continues on meropenem and received scheduled
albumin this shift. Awaiting further plan.
[2023-07-25 06:03] LABS: INR 1.44; PT 17.4 Sec (11.4-14.6)
[2023-07-25 06:04] LABS: APTT 38.3 Sec (23.4-35.0); Fibrinogen 385 MG/DL (199-459)
[2023-07-25 06:06] LABS: Hematocrit 26.7 % (39.0-52.0); Hemoglobin 9.5 g/dL (13.0-18.0); Mean Corp Hgb Conc. 35.6 g/dL (33.0-37.0); Mean Corpuscular Volume 87.3 fL (80.0-94.0); Mean Platelet Volume 10.5 fL (7.4-10.4); Platelet Count 99 10^3/uL (130-400); Red Blood Cell Count 3.06 10^6/uL (4.70-6.10); Red Cell Dist. Width 15.3 % (11.5-14.5); White Blood Cell Count 6.5 10^3/uL (4.8-10.8)
[2023-07-25 06:14] LABS: D-Dimer 5.86 ug/mlFEU (0.00-0.50)
[2023-07-25 06:35] LABS: ALT (SGPT) 329 U/L (0-50); AST (SGOT) 190 U/L (17-59); Alkaline Phosphatase 87 U/L (38-126); Blood Urea Nitrogen 14 mg/dl (9-20); Calcium 7.9 mg/dl (8.4-10.2); Carbon Dioxide 25 mmol/L (22-30); Chloride 105 mmol/L (98-107); Estimated Creatinine Clearance 112 ml/min; Glucose 93 mg/dl (70-99); Magnesium 2.1 mg/dl (1.6-2.3); Phosphorus 2.6 mg/dl (2.5-4.5); Potassium 3.4 mmol/L (3.5-5.1); Sodium 134 mmol/L (135-145); Total Bilirubin 3.6 mg/dl (0.2-1.3); Total Protein 5.7 g/dl (6.3-8.2); eGFR > 60.00
[2023-07-25] MEDS: THERAGRAN 1 TABLET PO (09:03)
[2023-07-25] MEDS: KCL 20 MEQ PO (09:03)
--- NOTE | 2023-07-25 10:51 | W.PN.ONC ---
Today's Communication / Plan
-
-S/p IR guided embolization of LHA hemoglobin stable at 9.5 g/dL
-CT and alpha-fetoprotein findings consistent with HCC diagnostic studies triple phase CT scan or MRI
-Follow para cytology pending
-Follow hepatitis C RNA pending
-Monitor for etiology of thrombocytopenia including infections, medications, liver disease. No splenomegaly on CT. blood culture, urine culture, and ascites fluid are negative to date
Impression
Impression
Hepatic mass w/ associated hematoma, hepatocellular carcinoma by criteria of radiographic findings and markedly elevated alpha-fetoprotein
Acute blood loss anemia s/p IR guided embolization - LHA
h/o significant ETOH use/ abuse
Acute thrombocytopenia
ascites status post Paracentesis 07/22 1500cc drained
Hepatitis C antibody positive, awaiting RNA
Subjective/Objective
Subjective/Objective
No significant clinical change. Less abdominal distention and discomfort.
Vital Signs:
Vital Signs
Temp Pulse Resp BP Pulse Ox
98.8 F 95 16 126/75 95
07/25/23 07:00 07/25/23 07:00 07/25/23 07:00 07/25/23 07:00 07/25/23 07:00
Physical Exam
HEENT: Moist Mucous Membranes; No Jaundice
Cardiology: Normal Sinus Rhythm
Pulmonary: Clear
GI: Soft and Distended no shifting dullness
Extremities: Pulses Present; No Edema
Neuro: Non Focal
Lab Results:
Laboratory Data
WBC 6.5 10^3/uL (4.8-10.8) 07/25/23 05:27
Hgb 9.5 g/dL (13.0-18.0) L 07/25/23 05:27
Plt Count 99 10^3/uL (130-400) L 07/25/23 05:27
PT 17.4 Sec (11.4-14.6) H 07/25/23 05:27
INR 1.44 07/25/23 05:27
APTT 38.3 Sec (23.4-35.0) H 07/25/23 05:27
eGFR > 60.00 07/25/23 05:27
--- NOTE | 2023-07-25 12:34 | W.PN.ID1 ---
Date of Service
Date of Service: July 25, 2023
Today's Communication
Discontinue antibiotics and observe.
Assessment / Plan
Liver mass with elevated tumor markers; suspected HCC
Abnormal ascites fluid
- SBP possible, although cultures negative to date, and ascites fluid difficult to interpret in the context of significant blood.
Leukocytosis; improved
Transaminitis
Markedly elevated AFP
Hep C positive
Fevers
- infection vs tumor fever, but would favor the latter.
Recommendations:
With cultures negative, will discontinue further antibiotics with close observation.
����������������������������������������������������������
Chief Complaint
-: Other (SBP)
Subjective / Review of Systems
Patient seen and examined. Offers no complaints at present.
Vital Signs / Physical Exam
Vital Signs
Vital Signs
Temp Pulse Resp BP Pulse Ox
99.9 F 101 16 144/86 95
07/25/23 11:00 07/25/23 11:00 07/25/23 11:00 07/25/23 11:00 07/25/23 11:00
Physical Exam
Constitutional: No Acute Distress and Comfortable
Eyes: Pupils Equal, Pupils Round and No Conjunctival Hemorrhage
Cardiovascular: S1/S2; Negative S3/S4
Pulmonary: Clear and Non Labored
Gastrointestinal: Soft, Non Distended and Normal Bowel Sounds
Neurological: Awake and Alert
Objective Data
Lab Data
Lab Results
07/25/23 05:27
07/25/23 05:27
PT 17.4 Sec (11.4-14.6) H 07/25/23 05:27
INR 1.44 07/25/23 05:27
APTT 38.3 Sec (23.4-35.0) H 07/25/23 05:27
Estimated Creat Clear 112 ml/min 07/25/23 05:27
Lactic Acid 1.4 mmol/L (0.7-2.0) 07/21/23 20:51
Total Bilirubin 3.6 mg/dl (0.2-1.3) H 07/25/23 05:27
AST 190 U/L (17-59) H 07/25/23 05:27
ALT 329 U/L (0-50) H 07/25/23 05:27
Alkaline Phosphatase 87 U/L (38-126) 07/25/23 05:27
Most recent labs reviewed.
Micro Results:
07/20/23 12:19 Blood Culture - Final
Blood/Venous No Growth - Final Report
07/20/23 12:19 Blood Culture - Final
Blood/Venous No Growth - Final Report
07/23/23 10:52 Body Fluid Culture - Preliminary
Peritoneal Fluid No Growth After 48 Hours
Gram Stain - Preliminary
07/23/23 13:26 Blood Culture - Preliminary
Blood/Venous No Growth in 24 hours- Final report to follow
07/23/23 12:49 Blood Culture - Preliminary
Blood/Venous No Growth in 24 hours- Final report to follow
07/21/23 00:39 Urine Culture - Final
Urine NO GROWTH
07/20/23 16:40 Nasal Screen MRSA (PCR) - Final
Nose MRSA not detected - performed by PCR methodology.
Imaging:
07/20/2023 CT abdomen/pelvis: Large partially exophytic in the left lobe measuring at least 8 cm with likely accompanying massive accompanying hematoma about the central abdomen and moderate to large volume complex free fluid suggesting hemorrhage,
centered about the large left lobe lesion with some likely active contrast extravasation. Findings are suspicious for ruptured tumor such as hepatocellular carcinoma with accompanying large hematoma and with moderate to large volume mildly complex
free fluid/hemorrhage.
Additional smaller hepatic lesions suspicious for malignancy, possibly multifocal hepatocellular carcinoma. Distal paraesophageal varices.
--- NOTE | 2023-07-25 12:49 | W.PN.HOSP.TC ---
Today's Communication/Plan
-
PT/OT
Assessment / Plan
Assessment / Plan
Physical Exam
General: not acutely ill, no acute distress
HEENT: Normocephalic, Atraumatic, EOMI, MMM
Respiratory:Limited with less rales bilaterally
Cardiac: Normal S1/S2, Regular Rate and Rhythm
GI: Soft, not distended, no tenderness
Extremities: No Clubbing, Cyanosis
Neuro: Nonfocal/Grossly Intact
Psych: Calm, Cooperative
HPI: 62-year-old male non-smoker with no known past medical history presents with weakness and near syncopal events. 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 He felt nauseous today as well with reported vomiting.
# Liver mass with elevated tumor marker, c/w HCC
Pt reported previous drug use( in college). Also he was rejected for blood donation in past due to Hep C Antibodies. Serology + Hep C AB , await RNA test
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
- History of heavy alcohol use but not recent
Appreciate oncology help. Plan for OP evaluation upon discharge.
# Possible ? SBP with high PMN count in ascitic fluid, fevers/ abdominal pain
s/p paracentesis on 07/22. 1500 cc of dark bloody ascitic fluid was evacuated
Re-culture blood 07/22 and culture ascitic fluid , no growth
Evaluated by ID doctor, unlikely SBP as fluid was bloody with high cell counts. Stopped ABx as of 07/24.
Pt was on Rocephin then changed to Meropenem
s/p IV Albumin for 48 hours
Abdomen is soft and not distended, pt denies pain now, no need to repeat paracentesis.
Appreciate ID help
#Hemorrhagic shock due to Left hepatic artery rupture with bleeding/ Massive intra-abdominal hematoma/ Lactic acidosis
#Acute blood loss anemia
Status post 6 units packed red blood cells
Off pressers
HGB seems to stabilize now.
Appreciate surgery help
# Hypokalemia, replace
# 8 cm left liver lobe lesion concerning for HCC/ smaller hepatic lesions suspicious for malignancy, possibly multifocal hepatocellular carcinoma./
- Transaminitis, liver enzymes are coming down
Likely shocked liver on underlying Liver tumor
#Acute hypoxic respiratory failure with hypoxia, tachypnea, respiratory distress,
Lung examination, bilateral Limited with some rales. Now on 2 liters after paracentesis
Chest x ray c/w pulmonary edema , given Lasix on 06/22, encouraged to use incentive spirometry.
# Hyponatremia,
DVT prophylaxis�SCDs
Full code
Total time spent to see the patient on the floor, examine the patient, review data and lab results, discuss treatment plan with patient, consultants, nursing staff around 59 minutes.
Anticipated Discharge: 24 - 48 hours
Subjective/Interval History
-
Date of Service: July 25, 2023
No abdominal pain
No chest pain
Fever last night
Objective Data
-
Labs:
Laboratory Results
07/25/23
05:27
WBC 6.5
Hgb 9.5 L
Hct 26.7 L
Plt Count 99 L
PT 17.4 H
INR 1.44
APTT 38.3 H
Sodium 134 L
Potassium 3.4 L
Chloride 105
Carbon Dioxide 25
BUN 14
Creatinine 0.4 L
Glucose 93
Calcium 7.9 L
Total Bilirubin 3.6 H
AST 190 H
ALT 329 H
Alkaline Phosphatase 87
Vital Signs:
Vital Signs
Temp Pulse Resp BP Pulse Ox
99.9 F 101 16 144/86 95
07/25/23 11:00 07/25/23 11:00 07/25/23 11:00 07/25/23 11:00 07/25/23 11:00
I&O
07/24/23 07/25/23 07/26/23
06:59 06:59 06:59
Intake Total 1983 1008 / 1008
Output Total 1874 300 / 300
Balance 109 / 198 708 / 708
--- NOTE | 2023-07-25 14:52 | PN.CDI ---
Addendum entered and electronically signed by Rusty Carlson MD 07/26/23 06:14:
No nutritional deficiency
Original Note:
CDI
- -
CDI:
Physician Documentation Request
Admit Date: 07/20/23 14:48
Dear Doctor Aldo,
Please review the following and provide your response in the progress notes.
Clinical Indicators:
Pt admitted with hemorrhagic shock, liver tumor
ER and H&P note: 'He is pale and appears malnourished.'
To ensure the quality of the medical record, based on the above information and the recognized standards for malnutrition , could you please verify in your progress notes which of the following responses best reflects the patient's nutritional
status:
Malnutrition(Please indicate Mild, Moderate or Severe) is/was present and is a clinical diagnosis (please provide additional support in the medical record)
No nutritional deficiency
Other (please specify)
[place] Criteria ([facility] Hospitalist 2017)
2 or more criteria must be present for either
non severe or severe malnutrition
Note that the criteria differs related to the
presence of an acute or chronic illness
Acute Illness Chronic Illness
Energy Intake Non Severe: <75% for >7 days Non Severe: <75% for >1 month
Severe: <50% for >5 days Severe: <75% for >1 month
Weight Loss Non Severe: 1-2% over 1 week Non Severe: 5% over 1 month
5% over 1 month 7.5% over 3 months
7.5% over 3 months 10% over 6 months
1 year N/A 20% over 1 year
Severe: >2% over 1 week Severe: >5% over 1 month
>5% over 1 month >7.5% over 3 months
>7.5% over 3 months >10% over 6 months
1 year N/A >20% over 1 year
Body Fat Non Severe: Mild Decrease Non Severe: Mild Loss
Severe: Moderate Decrease Severe: Severe Loss
Muscle Mass Non Severe: Mild Decrease Non Severe: Mild Loss
Severe: Moderate Decrease Severe: Severe Loss
Fluid Accumulation Non Severe: Mild Accumulation Non Severe: Mild Accumulation
Severe: Moderate to severe Severe: Moderate to severe
accumulation accumulation
Reduced Satin Finisher Strength Non Severe: N/A Non Severe: N/A
Severe: Measurably reduced Severe: Measurably reduced
Additional criteria that can be used to Determine if Mild or Moderate Malnutrition ([employer] Manual 2018)
Mild Moderate Severe
Albumin gm/dl <3.0 gm/dl <2.5 gm/dl <2.0 gm/dl
Pre Albumin mg/dl <15 gm/dl <10 mg/dl <5.0 mg/dl
BMI <18.5 <17 <16
Use of terms such as suspected, likely, concern for, or probable (associated with a specific diagnosis that is being evaluated, monitored, or treated as if it exists) are acceptable and can be coded in the inpatient setting, when documented at the
time of discharge.
Thank you,
Sangeeta Velásquez RN, BSN
CDI Specialist
Available via [place] [employer]
Please use your independent medical judgment in providing your response.
--- NOTE | 2023-07-25 15:06 | PN.CDI ---
Addendum entered and electronically signed by Rusty Carlson MD 07/26/23 06:15:
Sepsis was ruled out
Original Note:
CDI
- -
CDI:
Physician Documentation Request
Admit Date: 07/20/23 14:48
Dear Doctor Aldo,
Please review the following and provide your response in the progress notes.
Clinical Indicators:
Pt admitted with near syncope/ shock
The diagnosis of Sepsis was documented on 07/19 in H&P as probable sepsis , but is not consistently noted in subsequent documentation.
07/22 Food Preparation Worker PN: 'Shock likely hemorrhagic +/- sepsis in the setting of intra-abdominal bleed with hemorrhagic ascites (suspected ruptured hepatic tumor, i.e. HCC) - shock state resolved'
Temp 0n admission 35.6, HR 80's- 120, WBC 19.4, lactic acid 6.2
Please clarify the following:
Sepsis was present on admission and is now resolved.
Sepsis was ruled out
Other
Use of terms such as suspected, likely, concern for, or probable (associated with a specific diagnosis that is being evaluated, monitored, or treated as if it exists) are acceptable and can be coded in the inpatient setting, when documented at the
time of discharge.
Thank you,
Sangeeta Velásquez RN,BSN
CDI Specialist
[employer] via [place] [employer]
Please use your independent medical judgment in providing your response.
[2023-07-25 18:14] LABS: HCV Quant by NAAT Interp Detected (Not Detected); HCV Quant by NAAT Log IU/mL 6.04 log IU/mL
[2023-07-26] VITALS (10 sets, daily range): BP systolic 98–146; BP diastolic 75–87; PULSE 99–113; O2SAT 94–98; BMI 24.6
[2023-07-26 07:44] LABS: Blood Urea Nitrogen 16 mg/dl (9-20); Carbon Dioxide 26 mmol/L (22-30); Chloride 105 mmol/L (98-107); Estimated Creatinine Clearance 112 ml/min; Glucose 92 mg/dl (70-99); Potassium 3.8 mmol/L (3.5-5.1); Sodium 135 mmol/L (135-145); eGFR > 60.00
[2023-07-26] MEDS: KCL 20 MEQ PO (07:54)
[2023-07-26] MEDS: THERAGRAN 1 TABLET PO (07:54)
[2023-07-26 09:28] LABS: Body Fluid WBC 4134 /CUMM
[2023-07-26 09:37] LABS: Body Fluid Second Tech CF
--- NOTE | 2023-07-26 09:40 | W.PN.HOSP.TC ---
Today's Communication/Plan
-
likely dc in am
Assessment / Plan
Assessment / Plan
Physical Exam
General: not acutely ill, no acute distress
HEENT: Normocephalic, Atraumatic, EOMI, MMM
Respiratory:Limited with less rales bilaterally
Cardiac: Normal S1/S2, Regular Rate and Rhythm
GI: Soft, not distended, no tenderness
Extremities: No Clubbing, Cyanosis
Neuro: Nonfocal/Grossly Intact
Psych: Calm, Cooperative
HPI: 62-year-old male non-smoker with no known past medical history presents with weakness and near syncopal events. 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 He felt nauseous today as well with reported vomiting.
# Liver mass with elevated tumor marker, c/w HCC
Pt reported previous drug use( in college). Also he was rejected for blood donation in past due to Hep C Antibodies. Serology + Hep C AB , await RNA test
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
- History of heavy alcohol use but not recent
Appreciate oncology help. Plan for OP evaluation upon discharge.
# Possible ? SBP with high PMN count in ascitic fluid, fevers/ abdominal pain
s/p paracentesis on 07/22. 1500 cc of dark bloody ascitic fluid was evacuated
Re-culture blood 07/22 and culture ascitic fluid , no growth
Evaluated by ID doctor, unlikely SBP as fluid was bloody with high cell counts. Stopped ABx as of 07/24. Fevers could be drug fevers or tumor related.
Pt was on Rocephin then changed to Meropenem then stopped
s/p IV Albumin for 48 hours
Abdomen is soft and not distended, pt denies pain, repeat US
Appreciate ID help
#Hemorrhagic shock due to Left hepatic artery rupture with bleeding/ Massive intra-abdominal hematoma/ Lactic acidosis
#Acute blood loss anemia
Status post 6 units packed red blood cells
Off pressers
HGB Stable.
Appreciate surgery help
# Hypokalemia, replace
# 8 cm left liver lobe lesion concerning for HCC/ smaller hepatic lesions suspicious for malignancy, possibly multifocal hepatocellular carcinoma./
- Transaminitis, liver enzymes are coming down
Likely shocked liver on underlying Liver tumor
#Acute hypoxic respiratory failure with hypoxia, tachypnea, respiratory distress,
Lung examination, bilateral Limited with some rales. Now on 2 liters after paracentesis
Chest x ray c/w pulmonary edema , given Lasix on 06/22, encouraged to use incentive spirometry.
# Hyponatremia,
DVT prophylaxis�SCDs
Full code
Total time spent to see the patient on the floor, examine the patient, review data and lab results, discuss treatment plan with patient, consultants, nursing staff around 55 minutes.
Anticipated Discharge: Within 24 hours
Subjective/Interval History
-
Date of Service: July 26, 2023
No chest pain
No sob
No abd pain
Objective Data
-
Labs:
Laboratory Results
07/26/23
06:59
Sodium 135
Potassium 3.8
Chloride 105
Carbon Dioxide 26
BUN 16
Creatinine 0.4 L
Glucose 92
Calcium 8.0 L
Vital Signs:
Vital Signs
Temp Pulse Resp BP Pulse Ox
99.7 F 97 16 118/79 95
07/26/23 08:30 07/26/23 08:59 07/26/23 08:59 07/26/23 08:59 07/26/23 08:30
I&O
07/25/23 07/26/23 07/27/23
06:59 06:59 06:59
Intake Total 1008 / 1008 840 / 840
Output Total 300 / 300
Balance 708 / 708 840 / 840
--- NOTE | 2023-07-26 12:09 | W.PN.ID1 ---
Date of Service
Date of Service: July 26, 2023
Today's Communication
Sign off.
Assessment / Plan
Liver mass with elevated tumor markers; suspected HCC
Abnormal ascites fluid
- ascites fluid difficult to interpret in the context of significant blood. Cultures negative.
Leukocytosis; resolved
Transaminitis
Markedly elevated AFP
Hep C positive
Fevers
- infection vs tumor fever, but would favor the latter.
Recommendations:
Continue off antibiotics.
No acute infectious process noted at present.
Will see again at your request.
����������������������������������������������������������
Chief Complaint
-: Other (SBP)
Subjective / Review of Systems
Review of Systems: No Fever and No Chills
Vital Signs / Physical Exam
Vital Signs
Vital Signs
Temp Pulse Resp BP Pulse Ox
98.3 F 92 16 125/76 95
07/26/23 11:00 07/26/23 11:00 07/26/23 11:00 07/26/23 11:00 07/26/23 08:30
Physical Exam
Constitutional: No Acute Distress, Comfortable, Chronically Ill and Non-toxic
Eyes: No Conjunctival Hemorrhage
Cardiovascular: S1/S2; Negative S3/S4
Pulmonary: Non Labored
Gastrointestinal: Soft and Non Distended
Neurological: Awake and Alert
Psychological: Calm
Objective Data
Lab Data
Lab Results
07/25/23 05:27
07/26/23 06:59
PT 17.4 Sec (11.4-14.6) H 07/25/23 05:27
INR 1.44 07/25/23 05:27
APTT 38.3 Sec (23.4-35.0) H 07/25/23 05:27
Estimated Creat Clear 112 ml/min 07/26/23 06:59
Lactic Acid 1.4 mmol/L (0.7-2.0) 07/21/23 20:51
Total Bilirubin 3.6 mg/dl (0.2-1.3) H 07/25/23 05:27
AST 190 U/L (17-59) H 07/25/23 05:27
ALT 329 U/L (0-50) H 07/25/23 05:27
Alkaline Phosphatase 87 U/L (38-126) 07/25/23 05:27
Most recent labs reviewed.
Micro Results:
07/23/23 10:52 Body Fluid Culture - Final
Peritoneal Fluid No Growth After 72 Hours
Gram Stain - Final
07/26/23 08:43 Body Fluid Culture - Pending
Peritoneal Fluid Gram Stain - Pending
07/23/23 13:26 Blood Culture - Preliminary
Blood/Venous No Growth in 48 hours- Final report to follow
07/23/23 12:49 Blood Culture - Preliminary
Blood/Venous No Growth in 48 hours- Final report to follow
07/20/23 12:19 Blood Culture - Final
Blood/Venous No Growth - Final Report
07/20/23 12:19 Blood Culture - Final
Blood/Venous No Growth - Final Report
07/21/23 00:39 Urine Culture - Final
Urine NO GROWTH
07/20/23 16:40 Nasal Screen MRSA (PCR) - Final
Nose MRSA not detected - performed by PCR methodology.
Imaging:
07/20/2023 CT abdomen/pelvis: Large partially exophytic in the left lobe measuring at least 8 cm with likely accompanying massive accompanying hematoma about the central abdomen and moderate to large volume complex free fluid suggesting hemorrhage,
centered about the large left lobe lesion with some likely active contrast extravasation. Findings are suspicious for ruptured tumor such as hepatocellular carcinoma with accompanying large hematoma and with moderate to large volume mildly complex
free fluid/hemorrhage.
Additional smaller hepatic lesions suspicious for malignancy, possibly multifocal hepatocellular carcinoma. Distal paraesophageal varices.
[2023-07-26] MEDS: TYLENOL 325 MG PO (19:59)
--- NOTE | 2023-07-26 23:00 | PTCARENOTE ---
Sister whom shares home with pt. called in with concerns about pt condition and would like to discuss with MD prior to official DC. Sister believes that pt is in denial of his diagnosis, prognosis, and abilities. She states that although they share
a residence she is rarely home, working 60-70 hours a week and then caring for their elderly mother. She fears that he is not strong enough to care for himself without help and could fall ill or down and not have anyone to check in on him for many
hours each day. She would like to discuss the option of Rehab and or assistance at home before agreeing to bring him back home. She states that she, and the pts two brothers, will be at the hospital early this morning to discuss and with brother and
consult with his physician.
[2023-07-27 03:05] VITALS: BP 124/84
[2023-07-27 07:35] VITALS: BP 125/77
[2023-07-27] MEDS: THERAGRAN 1 TABLET PO (10:35)
[2023-07-27] MEDS: KCL 20 MEQ PO (10:35)
--- NOTE | 2023-07-27 11:02 | CM ---
Reviewed chart, received consult to meet with patient for discharge planning. Met with patient and three of his siblings who were at bedside, including the one with whom he lives, (his sister). Patient's sister stated that patient lives with her,
and she can't take care of patient at this time and won't be able to take care of him moving forward as he will be getting chemo tx and she works all day.
Patient was agreeable to ltc placement.
Met with patient's brother and sister in best. They stated that patient was unable to care for himself prior to this admission and there is no circumstance at this point that patient can return home with his sister.
Patient is HRSI pending.
He has no insurance, no PCP.
Family and patient agreeable to referrals being made in [facility] for LTC.
Plan: Case management will continue to follow and assist with discharge planning. LTC. Will make referrals to: Katie Zazueta, Denisa Walton, Nona Metcalf, [facility], [facility], [facility] and [facility].
[2023-07-27 11:25] VITALS: BP 116/80
--- NOTE | 2023-07-27 11:47 | W.PN.HOSP.TC ---
Today's Communication/Plan
-
dc planning
Assessment / Plan
Assessment / Plan
Physical Exam
General: not acutely ill, no acute distress
HEENT: Normocephalic, Atraumatic, EOMI, MMM
Respiratory:Limited with less rales bilaterally
Cardiac: Normal S1/S2, Regular Rate and Rhythm
GI: Soft, mildly distended, no tenderness
Extremities: No Clubbing, Cyanosis
Neuro: Nonfocal/Grossly Intact
Psych: Calm, Cooperative
HPI: 62-year-old male non-smoker with no known past medical history presents with weakness and near syncopal events. 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 He felt nauseous today as well with reported vomiting.
# Liver mass with elevated tumor marker, c/w HCC
Pt reported previous drug use( in college). Also he was rejected for blood donation in past due to Hep C Antibodies. Serology + Hep C AB , await RNA test
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
- History of heavy alcohol use but not recent
Appreciate oncology help. Plan for OP evaluation upon discharge.
# Possible ? SBP with high PMN count in ascitic fluid, fevers/ abdominal pain
s/p paracentesis on 07/22 of 1500 cc of dark bloody ascitic fluid, also 1050 cc of dark bloody ascitic fluid on 07/25
Re-culture blood 07/22 and culture ascitic fluid twice , no growth
Evaluated by ID doctor, unlikely SBP as fluid was bloody with high cell counts. Stopped ABx as of 07/24. Fevers could be drug fevers or tumor related.
Pt was on Rocephin then changed to Meropenem then stopped
s/p IV Albumin for 48 hours
Abdomen is soft and not tender, pt denies pain,
Appreciate ID help
#Hemorrhagic shock due to Left hepatic artery rupture with bleeding/ Massive intra-abdominal hematoma/ Lactic acidosis
#Acute blood loss anemia
Status post 6 units packed red blood cells
Off pressers
HGB Stable.
Appreciate surgery help
# Hypokalemia, replace
# 8 cm left liver lobe lesion concerning for HCC/ smaller hepatic lesions suspicious for malignancy, possibly multifocal hepatocellular carcinoma./
- Transaminitis, liver enzymes are coming down
Likely shocked liver on underlying Liver tumor
#Acute hypoxic respiratory failure with hypoxia, tachypnea, respiratory distress,
Lung examination, bilateral Limited with some rales. Now on 2 liters after paracentesis
Chest x ray c/w pulmonary edema , given Lasix on 06/22, encouraged to use incentive spirometry.
# Hyponatremia,
DVT prophylaxis�SCDs
Full code
Total time spent to see the patient on the floor, examine the patient, review data and lab results, discuss treatment plan with patient, family, nursing staff around 59 minutes.
Anticipated Discharge: 24 - 48 hours
Subjective/Interval History
-
Date of Service: July 27, 2023
He denies chest pain or abd pain
Objective Data
-
Vital Signs:
Vital Signs
Temp Pulse Resp BP Pulse Ox
98.3 F 103 14 125/77 99
07/27/23 07:35 07/27/23 07:35 07/27/23 07:35 07/27/23 07:35 07/27/23 07:35
I&O
07/26/23 07/27/23 07/28/23
06:59 06:59 06:59
Intake Total 840 / 840 540 / 540
Balance 840 / 840 540 / 540
[2023-07-27 15:09] VITALS: BP 130/83
[2023-07-27 19:20] VITALS: BP 120/87
[2023-07-27] MEDS: TYLENOL 325 MG PO (23:12)
[2023-07-27 23:25] VITALS: BP 121/76
[2023-07-28 03:28] VITALS: BP 104/66
[2023-07-28 07:00] VITALS: BP 104/71
[2023-07-28] MEDS: KCL 20 MEQ PO (08:23)
[2023-07-28] MEDS: THERAGRAN 1 TABLET PO (08:23)
[2023-07-28 08:42] LABS: Hematocrit 31.3 % (39.0-52.0); Hemoglobin 10.9 g/dL (13.0-18.0); Mean Corp Hgb Conc. 34.8 g/dL (33.0-37.0); Mean Corpuscular Hgb 31.2 pg (27.0-31.0); Mean Corpuscular Volume 89.7 fL (80.0-94.0); Mean Platelet Volume 9.8 fL (7.4-10.4); Platelet Count 195 10^3/uL (130-400); Red Blood Cell Count 3.49 10^6/uL (4.70-6.10); Red Cell Dist. Width 15.8 % (11.5-14.5); White Blood Cell Count 8.6 10^3/uL (4.8-10.8)
[2023-07-28 09:00] LABS: ALT (SGPT) 172 U/L (0-50); AST (SGOT) 136 U/L (17-59); Albumin 3.1 g/dl (3.5-5.0); Alkaline Phosphatase 103 U/L (38-126); Blood Urea Nitrogen 15 mg/dl (9-20); Calcium 8.4 mg/dl (8.4-10.2); Carbon Dioxide 26 mmol/L (22-30); Chloride 104 mmol/L (98-107); Estimated Creatinine Clearance 112 ml/min; Glucose 96 mg/dl (70-99); Potassium 3.7 mmol/L (3.5-5.1); Sodium 133 mmol/L (135-145); Total Bilirubin 4.5 mg/dl (0.2-1.3); Total Protein 6.4 g/dl (6.3-8.2); eGFR > 60.00
[2023-07-28 15:00] VITALS: BP 133/87
--- NOTE | 2023-07-28 15:00 | W.PN.HOSP.TC ---
Today's Communication/Plan
-
dc planning
Assessment / Plan
Assessment / Plan
Physical Exam
General: not acutely ill, no acute distress
HEENT: Normocephalic, Atraumatic, EOMI, MMM
Respiratory:Limited with less rales bilaterally
Cardiac: Normal S1/S2, Regular Rate and Rhythm
GI: Soft, mildly distended, no tenderness
Extremities: No Clubbing, Cyanosis
Neuro: Nonfocal/Grossly Intact
Psych: Calm, Cooperative
HPI: 62-year-old male non-smoker with no known past medical history presents with weakness and near syncopal events. 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 He felt nauseous today as well with reported vomiting.
# Liver mass with elevated tumor marker, c/w HCC
Pt reported previous drug use( in college). Also he was rejected for blood donation in past due to Hep C Antibodies. Serology + Hep C AB , await RNA test
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
- History of heavy alcohol use but not recent
Appreciate oncology help. Plan for OP evaluation upon discharge.
# Fevers
Ruled out SBP ( had high PMN count in ascitic fluid) , fevers/ abdominal pain
s/p paracentesis on 07/22 of 1500 cc of dark bloody ascitic fluid, also 1050 cc of dark bloody ascitic fluid on 07/25
Re-culture blood 07/22 and culture ascitic fluid twice , no growth
Evaluated by ID doctor, unlikely SBP as fluid was bloody with high cell counts. Stopped ABx as of 07/24. Fevers could be drug fevers or tumor related, treat with Tylenol only.
Pt was on Rocephin then changed to Meropenem then stopped
s/p IV Albumin for 48 hours
Abdomen is soft and not tender, pt denies pain,
Appreciate ID help
#Hemorrhagic shock due to Left hepatic artery rupture with bleeding/ Massive intra-abdominal hematoma/ Lactic acidosis
#Acute blood loss anemia
Status post 6 units packed red blood cells
Off pressers
HGB Stable.
Appreciate surgery help
# Hypokalemia, replaced
c/w daily low dose potassium
# Moderate to severe protein-caloric malnutrition with muscle wasting and failure to thrive. Likely due to cancer.
# 8 cm left liver lobe lesion concerning for HCC/ smaller hepatic lesions suspicious for malignancy, possibly multifocal hepatocellular carcinoma./
- Transaminitis, liver enzymes are coming down
Likely shocked liver on underlying Liver tumor , no pain issues.
#Acute hypoxic respiratory failure with hypoxia, tachypnea, respiratory distress,
Lung examination, bilateral Limited with some rales. Now on 2 liters after paracentesis
Chest x ray c/w pulmonary edema , given Lasix on 06/22, encouraged to use incentive spirometry.
# Hyponatremia, mild
DVT prophylaxis�SCDs
Full code
Total time spent to see the patient on the floor, examine the patient, review data and lab results, discuss treatment plan with patient, family, nursing staff around 59 minutes.
Anticipated Discharge: Within 24 hours
Subjective/Interval History
-
Date of Service: July 28, 2023
No chest pain
No abd pain
No fevers
Objective Data
-
Labs:
Laboratory Results
07/28/23
08:30
WBC 8.6
Hgb 10.9 L
Hct 31.3 L
Plt Count 195 D
Sodium 133 L
Potassium 3.7
Chloride 104
Carbon Dioxide 26
BUN 15
Creatinine 0.5 L
Glucose 96
Calcium 8.4
Total Bilirubin 4.5 H
AST 136 H
ALT 172 H
Alkaline Phosphatase 103
Vital Signs:
Vital Signs
Temp Pulse Resp BP Pulse Ox
98.5 F 96 17 104/71 96
07/28/23 07:00 07/28/23 07:00 07/28/23 07:00 07/28/23 07:00 07/28/23 07:00
I&O
07/27/23 07/28/23 07/29/23
06:59 06:59 06:59
Intake Total 540 / 540 1440 / 1440
Balance 540 / 540 1440 / 1440
[2023-07-28 23:55] VITALS: BP 120/84
[2023-07-29] MEDS: TYLENOL 325 MG PO ×2 (00:30→21:41)
[2023-07-29 07:00] VITALS: BP 110/73
[2023-07-29] MEDS: THERAGRAN 1 TABLET PO (08:11)
[2023-07-29] MEDS: KCL 20 MEQ PO (08:11)
--- NOTE | 2023-07-29 09:25 | CM ---
Addendum entered by Lori Moody 07/29/23 16:20:
Per Moriah - application remains in progress
Referral sent to [facility] - interested but would like pt to complete medicaid pre-screening questionnaire
Per Melissa at [facility] will email form to CM to be completed by pt
Will follow up in AM
Original Note:
Case management following for d/c planning
Received consult for d/c planning - pt is MA pending - unable to receive services as uninsured
Spoke with Moriah at [facility] - will check pts pending status and return call to CM
Will cont to follow
--- NOTE | 2023-07-29 12:38 | W.PN.ONC ---
Today's Communication / Plan
-
Tentative plans are for rehab. We will see him in the office in a couple of weeks to draw plans together for systemic therapy.
Impression
Impression
Hepatic mass w/ associated hematoma, hepatocellular carcinoma by criteria of radiographic findings and markedly elevated alpha-fetoprotein
Acute blood loss anemia s/p IR guided embolization - LHA
h/o significant ETOH use/ abuse
Acute thrombocytopenia
ascites status post Paracentesis 07/22 1500cc drained
Hepatitis C antibody positive, awaiting RNA
Plan
Plan
-s/p IR guided embolization of LHA
-surgery following
-CT may represent underlying HCC
-follow para cytology. If nondiagnostic then may need to proceed with a triple phase CT or MRI of the abdomen for diagnostic criteria with AFP [id number]
-Follow hepatitis C RNA
-Monitor for etiology of thrombocytopenia including infections, medications, liver disease. No splenomegaly on CT. blood culture, urine culture, and ascites fluid are negative to date
Subjective/Objective
Subjective/Objective
Besides weakness, he is feeling reasonably well. He is having little in the way of pain. He does have some mild recurrent recurrent ascites. Examination is otherwise unchanged.
Vital Signs:
Vital Signs
Temp Pulse Resp BP Pulse Ox
98.3 F 93 17 110/73 98
07/29/23 11:00 07/29/23 07:00 07/29/23 07:00 07/29/23 07:00 07/29/23 07:00
Lab Results:
Laboratory Data
WBC 8.6 10^3/uL (4.8-10.8) 07/28/23 08:30
Hgb 10.9 g/dL (13.0-18.0) L 07/28/23 08:30
Plt Count 195 10^3/uL (130-400) D 07/28/23 08:30
PT 17.4 Sec (11.4-14.6) H 07/25/23 05:27
INR 1.44 07/25/23 05:27
APTT 38.3 Sec (23.4-35.0) H 07/25/23 05:27
eGFR > 60.00 07/28/23 08:30
--- NOTE | 2023-07-29 14:33 | W.PN.HOSP.TC ---
Today's Communication/Plan
-
DC ready, CM aware
Assessment / Plan
Assessment / Plan
Physical Exam
General: not acutely ill, no acute distress
HEENT: Normocephalic, Atraumatic, EOMI, MMM
Respiratory:Limited with less rales bilaterally
Cardiac: Normal S1/S2, Regular Rate and Rhythm
GI: Soft, mildly distended, no tenderness
Extremities: No Clubbing, Cyanosis
Neuro: Nonfocal/Grossly Intact
Psych: Calm, Cooperative
HPI: 62-year-old male non-smoker with no known past medical history presents with weakness and near syncopal events. 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 He felt nauseous today as well with reported vomiting.
# Liver mass with elevated tumor marker, c/w HCC
Pt reported previous drug use( in college). Also he was rejected for blood donation in past due to Hep C Antibodies. Serology + Hep C AB , await RNA test
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
- History of heavy alcohol use but not recent
Appreciate oncology help. Plan for OP evaluation upon discharge for systemic chemo
# Fevers
-most likely 2/2 to tumor fever
Ruled out SBP ( had high PMN count in ascitic fluid) , fevers/ abdominal pain
s/p paracentesis on 07/22 of 1500 cc of dark bloody ascitic fluid, also 1050 cc of dark bloody ascitic fluid on 07/25
Re-culture blood 07/22 and culture ascitic fluid twice , no growth
Evaluated by ID doctor, unlikely SBP as fluid was bloody with high cell counts. Stopped ABx as of 07/24. Fevers could be drug fevers or tumor related, treat with Tylenol only.
Pt was on Rocephin then changed to Meropenem then stopped
s/p IV Albumin for 48 hours
Abdomen is soft and not tender, pt denies pain,
Appreciate ID help
#Hemorrhagic shock due to Left hepatic artery rupture with bleeding/ Massive intra-abdominal hematoma/ Lactic acidosis
#Acute blood loss anemia
Status post 6 units packed red blood cells
Off pressers
HGB Stable.
Appreciate surgery recs
# Hypokalemia, replaced
c/w daily low dose potassium
# Moderate to severe protein-caloric malnutrition with muscle wasting and failure to thrive. Likely due to cancer.
# Transaminitis
Mostly secondary to hemorrhagic shock
� Also possible component of malignancy,
� Follow-up CMP outpatient
� Improving
# 8 cm left liver lobe lesion concerning for HCC/ smaller hepatic lesions suspicious for malignancy, possibly multifocal hepatocellular carcinoma./
- Transaminitis, liver enzymes are coming down
Likely shocked liver on underlying Liver tumor , no pain issues.
#Acute hypoxic respiratory failure with hypoxia, tachypnea, respiratory distress,
Lung examination, bilateral Limited with some rales.
Chest x ray c/w pulmonary edema , given Lasix on 06/22, encouraged to use incentive spirometry.
� Resolved
# Hyponatremia, mild
DVT prophylaxis�SCDs
Full code
Anticipated Discharge: Within 24 hours
Subjective/Interval History
-
Date of Service: July 29, 2023
Sitting in chair, no acute events
Objective Data
-
Vital Signs:
Vital Signs
Temp Pulse Resp BP Pulse Ox
98.3 F 93 17 110/73 98
07/29/23 11:00 07/29/23 07:00 07/29/23 07:00 07/29/23 07:00 07/29/23 07:00
I&O
07/28/23 07/29/23 07/30/23
06:59 06:59 06:59
Intake Total 1440 / 1440 2160 / 2160
Balance 1440 / 1440 2160 / 2160
Review of Systems
-
History Source: Patient
All other systems: Not reviewed unless documented
Data Reviewed
-
Medical Tests (Nuc Med, Echo etc): Image personally visualized and interpreted and Report Reviewed by me
Labs: Labs Reviewed by me
[2023-07-29 15:00] VITALS: BP 125/80
[2023-07-29 23:25] VITALS: BP 119/79
[2023-07-30 08:07] VITALS: BP 106/70
[2023-07-30] MEDS: THERAGRAN 1 TABLET PO (08:07)
[2023-07-30] MEDS: KCL 20 MEQ PO (08:07)
[2023-07-30 08:53] LABS: Hematocrit 34.6 % (39.0-52.0); Hemoglobin 11.5 g/dL (13.0-18.0); Mean Corp Hgb Conc. 33.2 g/dL (33.0-37.0); Mean Corpuscular Hgb 31.2 pg (27.0-31.0); Mean Corpuscular Volume 93.8 fL (80.0-94.0); Mean Platelet Volume 9.9 fL (7.4-10.4); Platelet Count 243 10^3/uL (130-400); Red Blood Cell Count 3.69 10^6/uL (4.70-6.10); Red Cell Dist. Width 15.9 % (11.5-14.5); White Blood Cell Count 11.2 10^3/uL (4.8-10.8)
[2023-07-30 09:26] LABS: ALT (SGPT) 133 U/L (0-50); AST (SGOT) 154 U/L (17-59); Albumin 3.5 g/dl (3.5-5.0); Alkaline Phosphatase 113 U/L (38-126); Blood Urea Nitrogen 16 mg/dl (9-20); Calcium 8.6 mg/dl (8.4-10.2); Carbon Dioxide 25 mmol/L (22-30); Chloride 103 mmol/L (98-107); Estimated Creatinine Clearance 112 ml/min; Glucose 96 mg/dl (70-99); Potassium 3.9 mmol/L (3.5-5.1); Sodium 134 mmol/L (135-145); Total Bilirubin 5.7 mg/dl (0.2-1.3); Total Protein 7.5 g/dl (6.3-8.2); eGFR > 60.00
--- NOTE | 2023-07-30 09:36 | CM ---
Addendum entered by Lori Moody 07/30/23 15:54:
Spoke with pt - deferred paperwork to his brother Pipe. He reports his brother has POA. Called pt brother Nicholas. Discussed SNF acceptance, Questionnaire from [facility] and need for paperwork to be processed. Reports he will be visiting pt in the
morning between 9:30-10 AM.
Will meet with pt and his brother at that time
Discussed with Melissa at [facility] - will be available to answer questions if needed
Addendum entered by Lori Moody 07/30/23 14:37:
Received medicaid per-screening form - given to patient to review and fill out
Original Note:
Case management following for discharge planning
Referral sent to [facility] - interested but would like pt to complete medicaid pre-screening questionnaire
Spoke with Melissa at [facility] - plan was to email form to CM to be completed by pt - email not received
CM spoke with Melissa at [facility] - will Fax form to CM to give to pt to complete
Will follow
[2023-07-30 11:18] VITALS: BP 122/74
[2023-07-30 13:30] VITALS: BP 122/73; BP_SYST 98
--- NOTE | 2023-07-30 13:37 | W.PN.HOSP.TC ---
Today's Communication/Plan
-
DC ready, CM aware
paracentesis today
Assessment / Plan
Assessment / Plan
Physical Exam
General: not acutely ill, no acute distress
HEENT: Normocephalic, Atraumatic, EOMI, MMM
Respiratory:Limited with less rales bilaterally
Cardiac: Normal S1/S2, Regular Rate and Rhythm
GI: Soft, mildly distended, no tenderness
Extremities: No Clubbing, Cyanosis
Neuro: Nonfocal/Grossly Intact
Psych: Calm, Cooperative
HPI: 62-year-old male non-smoker with no known past medical history presents with weakness and near syncopal events. 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 He felt nauseous today as well with reported vomiting.
# Liver mass with elevated tumor marker, c/w HCC
Pt reported previous drug use( in college). Also he was rejected for blood donation in past due to Hep C Antibodies. Serology + Hep C AB , await RNA test
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
- History of heavy alcohol use but not recent
Appreciate oncology help. Plan for OP evaluation upon discharge for systemic chemo
-paracentesis today
# Fevers
-most likely 2/2 to tumor fever
Ruled out SBP ( had high PMN count in ascitic fluid) , fevers/ abdominal pain
s/p paracentesis on 07/22 of 1500 cc of dark bloody ascitic fluid, also 1050 cc of dark bloody ascitic fluid on 07/25
Re-culture blood 07/22 and culture ascitic fluid twice , no growth
Evaluated by ID doctor, unlikely SBP as fluid was bloody with high cell counts. Stopped ABx as of 07/24. Fevers could be drug fevers or tumor related, treat with Tylenol only.
Pt was on Rocephin then changed to Meropenem then stopped
s/p IV Albumin for 48 hours
Abdomen is soft and not tender, pt denies pain,
Appreciate ID help
#Hemorrhagic shock due to Left hepatic artery rupture with bleeding/ Massive intra-abdominal hematoma/ Lactic acidosis
#Acute blood loss anemia
Status post 6 units packed red blood cells
Off pressers
HGB Stable.
Appreciate surgery recs
# Hypokalemia, replaced
c/w daily low dose potassium
# Moderate to severe protein-caloric malnutrition with muscle wasting and failure to thrive. Likely due to cancer.
# Transaminitis
Mostly secondary to hemorrhagic shock
� Also possible component of malignancy,
� Follow-up CMP outpatient
� Improving
# 8 cm left liver lobe lesion concerning for HCC/ smaller hepatic lesions suspicious for malignancy, possibly multifocal hepatocellular carcinoma./
- Transaminitis, liver enzymes are coming down
Likely shocked liver on underlying Liver tumor , no pain issues.
#Acute hypoxic respiratory failure with hypoxia, tachypnea, respiratory distress,
Lung examination, bilateral Limited with some rales.
Chest x ray c/w pulmonary edema , given Lasix on 06/22, encouraged to use incentive spirometry.
� Resolved
# Hyponatremia, mild
DVT prophylaxis�SCDs
Full code
Anticipated Discharge: 24 - 48 hours
Subjective/Interval History
-
Date of Service: July 30, 2023
worsening abd distension
Objective Data
-
Labs:
Laboratory Results
07/30/23
07:51
WBC 11.2 H
Hgb 11.5 L
Hct 34.6 L
Plt Count 243 D
Sodium 134 L
Potassium 3.9
Chloride 103
Carbon Dioxide 25
BUN 16
Creatinine 0.5 L
Glucose 96
Calcium 8.6
Total Bilirubin 5.7 H
AST 154 H
ALT 133 H
Alkaline Phosphatase 113
Vital Signs:
Vital Signs
Temp Pulse Resp BP Pulse Ox
98.3 F 104 17 122/74 95
07/30/23 11:18 07/30/23 11:18 07/30/23 11:18 07/30/23 11:18 07/30/23 11:18
I&O
07/29/23 07/30/23 07/31/23
06:59 06:59 06:59
Intake Total 2160 / 2160 1080 / 1080
Balance 2160 / 2160 1080 / 1080
Review of Systems
-
History Source: Patient
All other systems: Not reviewed unless documented
Data Reviewed
-
Medical Tests (Nuc Med, Echo etc): Image personally visualized and interpreted and Report Reviewed by me
Labs: Labs Reviewed by me
[2023-07-30 14:00] VITALS: BP 119/75
[2023-07-30 14:56] LABS: Body Fluid Mononuclear 49.6 %; Body Fluid Polymorphonuclear 50.4 %; Body Fluid WBC 3270 /CUMM
[2023-07-30 15:06] LABS: Body Fluid Second Tech AMA
[2023-07-30 15:08] VITALS: BP 118/68
[2023-07-30 15:32] LABS: Body Fluid Albumin 4.7 g/dl; Body Fluid Protein 8.4 g/dl
[2023-07-30 16:21] LABS: Body Fluid LDH 1968 U/L
[2023-07-30 23:45] VITALS: BP 106/70
[2023-07-31 07:00] VITALS: BP 107/62
[2023-07-31 08:09] LABS: Hematocrit 30.8 % (39.0-52.0); Hemoglobin 10.2 g/dL (13.0-18.0); Mean Corp Hgb Conc. 33.1 g/dL (33.0-37.0); Mean Corpuscular Hgb 30.8 pg (27.0-31.0); Mean Corpuscular Volume 93.1 fL (80.0-94.0); Mean Platelet Volume 10.3 fL (7.4-10.4); Platelet Count 190 10^3/uL (130-400); Red Blood Cell Count 3.31 10^6/uL (4.70-6.10); Red Cell Dist. Width 15.9 % (11.5-14.5); White Blood Cell Count 9.9 10^3/uL (4.8-10.8)
[2023-07-31 08:50] LABS: Ammonia 23 umol/L (9-30)
[2023-07-31 09:29] LABS: ALT (SGPT) 94 U/L (0-50); AST (SGOT) 113 U/L (17-59); Albumin 2.8 g/dl (3.5-5.0); Alkaline Phosphatase 88 U/L (38-126); Blood Urea Nitrogen 15 mg/dl (9-20); Calcium 7.9 mg/dl (8.4-10.2); Carbon Dioxide 24 mmol/L (22-30); Chloride 104 mmol/L (98-107); Estimated Creatinine Clearance 112 ml/min; Glucose 92 mg/dl (70-99); Potassium 4.1 mmol/L (3.5-5.1); Sodium 132 mmol/L (135-145); Total Bilirubin 4.3 mg/dl (0.2-1.3); Total Protein 6.4 g/dl (6.3-8.2); eGFR > 60.00
[2023-07-31] MEDS: THERAGRAN 1 TABLET PO (09:32)
[2023-07-31] MEDS: KCL 20 MEQ PO (09:32)
--- NOTE | 2023-07-31 10:49 | CM ---
Addendum entered by Lori Moody 07/31/23 16:37:
Met with pt and his brother. Per pt his brother Pipe would like for pt to live at his home
He will have his own room with private bathroom. Family will provide meals and support
Remains MA pending - given information for the [facility] and encouraged to call almaz. Brother at bedside and says he will assist
Plan anticipate home with brother. F/U with [facility] and [employer] when medically ready
Original Note:
Case management following for d/c planning
Pts brother Pipe reported he would assist pt in filling out questionnaire for [facility] today between 9:30-10 - has not been here today
LM on for brother asking if he would be in today - left call back number
--- NOTE | 2023-07-31 13:10 | W.PN.HOSP.TC ---
Today's Communication/Plan
-
dc ready, cm aware
Assessment / Plan
Assessment / Plan
Physical Exam
General: not acutely ill, no acute distress
HEENT: Normocephalic, Atraumatic, EOMI, MMM
Respiratory:Limited with less rales bilaterally
Cardiac: Normal S1/S2, Regular Rate and Rhythm
GI: Soft, mildly distended, no tenderness
Extremities: No Clubbing, Cyanosis
Neuro: Nonfocal/Grossly Intact
Psych: Calm, Cooperative
HPI: 62-year-old male non-smoker with no known past medical history presents with weakness and near syncopal events. 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 He felt nauseous today as well with reported vomiting.
# Liver mass with elevated tumor marker, c/w HCC
Pt reported previous drug use( in college). Also he was rejected for blood donation in past due to Hep C Antibodies. Serology + Hep C AB , await RNA test
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
- History of heavy alcohol use but not recent
Appreciate oncology help. Plan for OP evaluation upon discharge for systemic chemo
-paracentesis again 07/29
# Fevers
-most likely 2/2 to tumor fever
Ruled out SBP ( had high PMN count in ascitic fluid) , fevers/ abdominal pain
s/p paracentesis on 07/22 of 1500 cc of dark bloody ascitic fluid, also 1050 cc of dark bloody ascitic fluid on 07/25
Re-culture blood 07/22 and culture ascitic fluid twice , no growth
Evaluated by ID doctor, unlikely SBP as fluid was bloody with high cell counts. Stopped ABx as of 07/24. Fevers could be drug fevers or tumor related, treat with Tylenol only.
Pt was on Rocephin then changed to Meropenem then stopped
s/p IV Albumin for 48 hours
Abdomen is soft and not tender, pt denies pain,
Appreciate ID help
#Hemorrhagic shock due to Left hepatic artery rupture with bleeding/ Massive intra-abdominal hematoma/ Lactic acidosis
#Acute blood loss anemia
Status post 6 units packed red blood cells
Off pressers
HGB Stable.
Appreciate surgery recs
# Hypokalemia, replaced
c/w daily low dose potassium
# Moderate to severe protein-caloric malnutrition with muscle wasting and failure to thrive. Likely due to cancer.
# Transaminitis
Mostly secondary to hemorrhagic shock
� Also possible component of malignancy,
� Follow-up CMP outpatient
� Improving
# 8 cm left liver lobe lesion concerning for HCC/ smaller hepatic lesions suspicious for malignancy, possibly multifocal hepatocellular carcinoma./
- Transaminitis, liver enzymes are coming down
Likely shocked liver on underlying Liver tumor , no pain issues.
#Acute hypoxic respiratory failure with hypoxia, tachypnea, respiratory distress,
Lung examination, bilateral Limited with some rales.
Chest x ray c/w pulmonary edema , given Lasix on 06/22, encouraged to use incentive spirometry.
� Resolved
# Hyponatremia, mild
DVT prophylaxis�SCDs
Full code
DC ready, cm aware
Anticipated Discharge: Within 24 hours
Subjective/Interval History
-
Date of Service: July 31, 2023
distension present, para yesterday
Objective Data
-
Labs:
Laboratory Results
07/31/23
07:24
WBC 9.9
Hgb 10.2 L
Hct 30.8 L
Plt Count 190 D
Sodium 132 L
Potassium 4.1
Chloride 104
Carbon Dioxide 24
BUN 15
Creatinine 0.5 L
Glucose 92
Calcium 7.9 L
Total Bilirubin 4.3 H
AST 113 H
ALT 94 H
Alkaline Phosphatase 88
Vital Signs:
Vital Signs
Temp Pulse Resp BP Pulse Ox
98.9 F 113 17 107/62 96
07/31/23 07:00 07/31/23 07:00 07/31/23 07:00 07/31/23 07:00 07/31/23 07:00
I&O
07/30/23 07/31/23 08/01/23
06:59 06:59 06:59
Intake Total 1080 / 1080 1240 / 1240
Balance 1080 / 1080 1240 / 1240
Review of Systems
-
History Source: Patient
All other systems: Not reviewed unless documented
Data Reviewed
-
Medical Tests (Nuc Med, Echo etc): Image personally visualized and interpreted and Report Reviewed by me
Labs: Labs Reviewed by me
[2023-07-31 15:00] VITALS: BP 109/69
[2023-07-31 23:20] VITALS: BP 118/70
[2023-08-01 07:00] VITALS: BP 99/62
[2023-08-01 08:34] LABS: Hemoglobin 11.1 g/dL (13.0-18.0); Mean Corp Hgb Conc. 33.6 g/dL (33.0-37.0); Mean Corpuscular Volume 92.2 fL (80.0-94.0); Mean Platelet Volume 10.1 fL (7.4-10.4); Platelet Count 241 10^3/uL (130-400); Red Blood Cell Count 3.58 10^6/uL (4.70-6.10); Red Cell Dist. Width 16.1 % (11.5-14.5); White Blood Cell Count 7.4 10^3/uL (4.8-10.8)
--- NOTE | 2023-08-01 08:48 | W.PN.ONC ---
Today's Communication / Plan
-
Patient should have triple phase CT scan as cytology was negative to meet diagnostic criteria for HCC
Would space paracentesis so as to reduce rate of protein depletion
Anticipate discharge
Impression
Impression
Hepatic mass w/ associated hematoma, hepatocellular carcinoma by criteria of radiographic findings and markedly elevated alpha-fetoprotein
Acute blood loss anemia s/p IR guided embolization - LHA
Thrombocytopenia resolved
h/o significant ETOH use/ abuse
ascites status post Paracentesis 07/22 1500cc drained
Hepatitis C antibody positive, awaiting RNA
Plan
Plan
-s/p IR guided embolization of LHA
-CT may represent underlying HCC
-Cytology negative if nondiagnostic then may need to proceed with a
-triple phase CT or MRI of the abdomen for diagnostic criteria with AFP 9900
-Follow hepatitis C RNA
-Monitor for etiology of thrombocytopenia including infections, medications, liver disease. No splenomegaly on CT. blood culture, urine culture, and ascites fluid are negative to date
Subjective/Objective
Subjective/Objective
Continues to complain of abdominal fullness.
Vital Signs:
Vital Signs
Temp Pulse Resp BP Pulse Ox
97.9 F 101 17 99/62 97
08/01/23 07:00 08/01/23 07:00 08/01/23 07:00 08/01/23 07:00 08/01/23 07:00
Physical Exam
General: Chronically ill
HEENT: Normocephalic, Atraumatic, EOMI, MMM
Respiratory: Decreased in the bases
Cardiac: Normal S1/S2, Regular Rate and Rhythm
GI: Recurrent ascites
Extremities: No Clubbing, Cyanosis
Neuro: Nonfocal/Grossly Intact
Psych: Calm, Cooperative
Lab Results:
Laboratory Data
WBC 9.9 10^3/uL (4.8-10.8) 07/31/23 07:24
Hgb 10.2 g/dL (13.0-18.0) L 07/31/23 07:24
Plt Count 190 10^3/uL (130-400) D 07/31/23 07:24
PT 17.4 Sec (11.4-14.6) H 07/25/23 05:27
INR 1.44 07/25/23 05:27
APTT 38.3 Sec (23.4-35.0) H 07/25/23 05:27
eGFR > 60.00 07/31/23 07:24
[2023-08-01 09:04] LABS: ALT (SGPT) 89 U/L (0-50); AST (SGOT) 99 U/L (17-59); Alkaline Phosphatase 106 U/L (38-126); Blood Urea Nitrogen 15 mg/dl (9-20); Carbon Dioxide 25 mmol/L (22-30); Estimated Creatinine Clearance 112 ml/min; Glucose 93 mg/dl (70-99); Total Bilirubin 3.7 mg/dl (0.2-1.3); Total Protein 6.8 g/dl (6.3-8.2); eGFR > 60.00
[2023-08-01 09:13] LABS: Chloride 102 mmol/L (98-107); Sodium 134 mmol/L (135-145)
[2023-08-01] MEDS: THERAGRAN 1 TABLET PO (09:24)
[2023-08-01] MEDS: KCL 20 MEQ PO (09:24)
--- NOTE | 2023-08-01 11:51 | W.PN.HOSP.TC ---
Addendum entered and electronically signed by Ramesh Soria MD 08/02/23 15:33:
[id number]
Original Note:
Today's Communication/Plan
-
triple phase ct abd
f/u oncology, [facility] outpatient
Would distance paracentesis to avoid accelerated protein loss
DC today
Assessment / Plan
Assessment / Plan
Physical Exam
General: not acutely ill, no acute distress
HEENT: Normocephalic, Atraumatic, EOMI, MMM
Respiratory:Limited with less rales bilaterally
Cardiac: Normal S1/S2, Regular Rate and Rhythm
GI: Soft, mildly distended, no tenderness
Extremities: No Clubbing, Cyanosis
Neuro: Nonfocal/Grossly Intact
Psych: Calm, Cooperative
HPI: 62-year-old male non-smoker with no known past medical history presents with weakness and near syncopal events. 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 He felt nauseous today as well with reported vomiting.
# Liver mass with elevated tumor marker, c/w HCC
Pt reported previous drug use( in college). Also he was rejected for blood donation in past due to Hep C Antibodies. Serology + Hep C AB , await RNA test
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
- History of heavy alcohol use but not recent
Appreciate oncology help. Plan for OP evaluation upon discharge for systemic chemo
-paracentesis 07/29
# Fevers
-most likely 2/2 to tumor fever
Ruled out SBP ( had high PMN count in ascitic fluid) , fevers/ abdominal pain
s/p paracentesis on 07/22 of 1500 cc of dark bloody ascitic fluid, also 1050 cc of dark bloody ascitic fluid on 07/25
Re-culture blood 07/22 and culture ascitic fluid twice , no growth
Evaluated by ID doctor, unlikely SBP as fluid was bloody with high cell counts. Stopped ABx as of 07/24. Fevers could be drug fevers or tumor related, treat with Tylenol only.
Pt was on Rocephin then changed to Meropenem then stopped
s/p IV Albumin for 48 hours
Abdomen is soft and not tender, pt denies pain,
Appreciate ID help
#Hemorrhagic shock due to Left hepatic artery rupture with bleeding/ Massive intra-abdominal hematoma/ Lactic acidosis
#Acute blood loss anemia
Status post 6 units packed red blood cells
Off pressers
HGB Stable.
Appreciate surgery recs
F/u CBC in 1 week
# Hypokalemia, replaced
monitor K outpatient
# Moderate to severe protein-caloric malnutrition with muscle wasting and failure to thrive. Likely due to cancer.
# Transaminitis
Mostly secondary to hemorrhagic shock
� Also possible component of malignancy,
� Improving
-F/u LFTs outpatietnt
# 8 cm left liver lobe lesion concerning for HCC/ smaller hepatic lesions suspicious for malignancy, possibly multifocal hepatocellular carcinoma./
- Transaminitis, liver enzymes are coming down
Likely shocked liver on underlying Liver tumor , no pain issues.
-Triple Phase CT abd to evaluate HCC
-F/u Oncology outpatient
#Acute hypoxic respiratory failure with hypoxia, tachypnea, respiratory distress,
Lung examination, bilateral Limited with some rales.
Chest x ray c/w pulmonary edema , given Lasix on 06/22, encouraged to use incentive spirometry.
� Resolved
# Hyponatremia, mild
-monitor outpatient
DVT prophylaxis�SCDs
Full code
DC ready, cm aware
Anticipated Discharge: Today
Subjective/Interval History
-
Date of Service: August 01, 2023
No acute events
Objective Data
-
Labs:
Laboratory Results
08/01/23
07:01
WBC 7.4
Hgb 11.1 L
Hct 33.0 L
Plt Count 241 D
Sodium 134 L
Potassium 4.0
Chloride 102
Carbon Dioxide 25
BUN 15
Creatinine 0.5 L
Glucose 93
Calcium 8.0 L
Total Bilirubin 3.7 H
AST 99 H
ALT 89 H
Alkaline Phosphatase 106
Vital Signs:
Vital Signs
Temp Pulse Resp BP Pulse Ox
97.9 F 101 17 99/62 97
08/01/23 07:00 08/01/23 07:00 08/01/23 07:00 08/01/23 07:00 08/01/23 07:00
I&O
07/31/23 08/01/23 08/02/23
06:59 06:59 06:59
Intake Total 1240 / 1240 630 / 630
Balance 1240 / 1240 630 / 630
Review of Systems
-
History Source: Patient
All other systems: Not reviewed unless documented
Data Reviewed
-
Medical Tests (Nuc Med, Echo etc): Image personally visualized and interpreted and Report Reviewed by me
Labs: Labs Reviewed by me
--- NOTE | 2023-08-01 11:58 | W.DS.TRANS ---
DC Summary - Executive Director
-
Discharge Instructions:
Discharge Diagnosis/Procedures Hemorrhagic shock
Acute blood loss anemia secondary to hepatic
artery rupture and hyper vascular tumor
consistent with hepatocellular carcinoma
Hepatitis C, untreated
Ascites
Failure to thrive
Fevers
Diet 2 Gram Sodium,Low Fat,Low Cholesterol
Activity As tolerated
Driving Restrictions No driving
Blood Work cbc, lfts, cmp in 1 week with pcp/oncology
Instructions:
Stand-Alone Forms:
Changes to Home Medications: Yes
Discharge Medications:
DC Medications w/original date entered in [facility]
acetaminophen 325 mg tablet 325 mg PO Q4HPRN PRN fever >100.4F 90 days #90 tabs 08/01/23
Home Medication Changes
acetaminophen 325 mg tablet 325 mg PO Q4HPRN PRN fever >100.4F 90 days #90 tabs 08/01/23
Pending Results: No
--- NOTE | 2023-08-01 12:50 | CM ---
Pt for d/c today
Reports will have ride home
Unable to provide VN - No insurance
Plan - home with family care - to follow up as out patient at the [facility]
[2023-08-01 14:32] VITALS: BP 118/68
== END 2023-08-01 15:22 | disposition home or self-care (01) | DRG 423 ==
LOC: 3 WEST ACU 14:48
PROVIDERS: Emergency Medicine; Family Medicine; Internal Medicine; Nurse Practitioner Acute Care; Nurse Practitioner Primary Care; Radiology Diagnostic Radiology; Radiology Vascular & Interventional Radiology; Registered Nurse; Surgery; ADMITTING PHYSICIAN Internal Medicine; ATTENDING PHYSICIAN Internal Medicine; CONSULT PHYSICIAN Internal Medicine Critical Care Medicine; CONSULT PHYSICIAN Internal Medicine Hematology & Oncology; CONSULT PHYSICIAN Surgery; EMERGENCY PHYSICIAN Student in an Organized Health Care Education/Training Program; OTHER PHYSICIAN Internal Medicine Infectious Disease
PROC: 30233N1 Transfusion of Nonautologous Red Blood Cells into Peripheral Vein, Percutaneous Approach (ICD-10-PCS; 2023-07-20)
PROC: 04L33DZ Occlusion of Hepatic Artery with Intraluminal Device, Percutaneous Approach (ICD-10-PCS; 2023-07-21)
PROC: B4121ZZ Fluoroscopy of Hepatic Artery using Low Osmolar Contrast (ICD-10-PCS; 2023-07-21)
PROC: 02HV33Z Insertion of Infusion Device into Superior Vena Cava, Percutaneous Approach (ICD-10-PCS; 2023-07-21)
PROC: 0W9G3ZZ Drainage of Peritoneal Cavity, Percutaneous Approach (ICD-10-PCS; 2023-07-23)
DX: C22.0 Liver cell carcinoma (principal); J96.01 Acute respiratory failure with hypoxia; R57.8 Other shock; K66.1 Hemoperitoneum; E44.0 Moderate protein-calorie malnutrition; D62 Acute posthemorrhagic anemia; E87.20 Acidosis, unspecified; R18.8 Other ascites; I77.2 Rupture of artery; K76.6 Portal hypertension; I85.10 Secondary esophageal varices without bleeding; E87.1 Hypo-osmolality and hyponatremia; E86.0 Dehydration; R73.9 Hyperglycemia, unspecified; K80.20 Calculus of gallbladder without cholecystitis without obstruction; B19.20 Unspecified viral hepatitis C without hepatic coma; E87.6 Hypokalemia; R62.7 Adult failure to thrive; Z68.24 Body mass index [BMI] 24.0-24.9, adult
CPT/HCPCS: 88305; 36247; 36556; 37244; 49083; 70450; 71045; 71275; 74177; 74178; 75726; 76937; 77001; 80048; 80053; 80202; 81003; 81015; 82042; 82105; 82140; 82962; 83036; 83605; 83615; 83735; 84100; 84145; 84157; 84443; 84484; 85014; 85018; 85025; 85027; 85379; 85384; 85610; 85730; 86706; 86803; 86850; 86900; 86901; 86920; 87015; 87040; 87070; 87086; 87205; 87340; 87522; 87641; 88112; 88341; 88342; 89051; 93005; 96361; 96365; 96366; 96367; 96375; 97116; 97163; 97167; 97530; 97535; 99291; C1769; C1887; P9016; P9047; Q9967

== ENCOUNTER 2023-08-01 22:07 | Inpatient (IN) | payer MEDICAID, SELFPAY ==
[2023-08-01 18:42] VITALS: BP 118/76
--- NOTE | 2023-08-01 18:45 | ED.PDOC.TRB ---
ED Provider Triage
-
Patient seen by provider in Triage?: Seen in Triage
*Seen in triage for initial assessment to expedite workup*
D/C from hospital today after admission for hepatic artery rupture and hemorrhagic shock. had CT abd/pelv this AM that was notable for acute PE. This was not noted prior to discharge and he was called back by the hospitalist and advised to return
for re-admission.Does report some shortness of breath but no chest pain.
Slightly tachycardic but normal respiratory effort. Will defer labs as pt was just in hospital today.
[2023-08-01 19:20] VITALS: BP 116/85
--- NOTE | 2023-08-01 19:35 | ED.GENMED ---
History of Present Illness
General
Chief Complaint: Breathing Problem
Source: patient
Time Seen by Provider: 08/01/23 19:12
Travel History
Have you had any contact with someone who has COVID-19?: No
Do you have any symptoms of coronavirus? Fever > 100 degrees, chills, cough, shortness of breath, sore throat, loss of taste or smell, muscle aches, or headache?: No
History of Present Illness
History of Present Illness:
62-year-old male discharged from the hospital this afternoon after an admission for intra-abdominal hemorrhage. Patient was found to have a ruptured hepatic mass which was causing hemorrhagic shock. This was treated with embolization and
interventional radiology. The mass was determined to be hepatocellular carcinoma. Patient had a presumably staging CAT scan today prior to discharge. After returning home he received a phone call that the CT scan showed pulmonary emboli. He was
told to return to the hospital. Patient denies any pain with deep inspiration. He does not feel short of breath though he is really not done anything aside from laying in bed or sit in a chair. No other complaints.
Past History
Past History
ED Past Medical History: None
ED Past Surgical History: None
Social History
Tobacco: Non-smoker
Alcohol: None
Phy Exam
Physical Exam
Physical Exam:
General: Awake, Alert, Oriented X3. Peers cachectic and chronically ill
Vitals: Tachycardic, not hypoxic
Head: Atraumatic
Eyes: Pupils equal, EOMI
Throat: Airway intact, no exudates
Neck: Trachea midline
Lungs: Clear and equal b/l
Heart: Regular rate, no murmurs
Abd: Soft, Nontender, No pulsatile mass
Neuro: Nonfocal
Skin: Warm, dry, no rash
Extremities: pulses equal b/l, 1+ edema
Scores
Heart Failure Risk
Heart Failure Risk Score: Not Applicable
Course
Orders/Labs/Results
Orders:
Orders
08/01/23 Breakfast
Regular
At Your Request: Full Participation
Does patient need a safe tray?: No
08/01/23 19:28
US Periph Venous LOWER Ext Jace Urgent
Comment:
Reason For Exam: Pulmonary embolism
08/01/23 19:52
Admit/Transfer Patient As Directed
Co-Sign Provider:
Level of Care: Inpatient admission
Assign to:: Telemetry
Physician / Group: joaquin pollard
Diagnosis: PE
Reason for Telemetry: Other
Other Reason for Telemetry: PE
Date to Stop Telemetry: 08/03/23
Time to Stop Telemetry: 11:00
Reason for Hospitalization: PE
Expected length of stay greater than two midnights?: Yes
ELOS- Estimated Length of Stay in days: 3
I certify the patient meets the requirements for IP care: Yes
08/01/23 19:53
Code Status As Directed
Resuscitation Status: Full Code
08/01/23 22:12
Acetaminophen [Tylenol] 325 mg PO Q4HPRN PRN
08/01/23 22:12
IRAD CONSULT Routine
Consulting Provider: Andrade Goodwin
Was physician already notified: Yes
Reason for Consult/Procedure: PE
Acknowledgement that appropriate orders are entered: Yes
Activity As Directed
Activity Level: As Tolerated
Bladder Scan As Directed
Follow Bladder Retention/Intermittent Cath Algorithm?: Yes
Frequency: Per Retention Algorithm
Comment: as per intermittent urinary catheter algorithm
Bladder Scan As Directed
Follow Bladder Retention/Intermittent Cath Algorithm?: Yes
PRN if no void in __ hours: 6
Frequency: Per Retention Algorithm
If Bladder Scan Result >: 400
then:: Straight cath
Intake/ Output As Directed
Frequency: Per unit guidelines
Straight Cath As Directed
Frequency: Per Retention Algorithm
Additional Instructions: as per intermittent urinary catheter algorithm
Straight Cath As Directed
Frequency: Per Retention Algorithm
Additional Instructions: straight cath as needed per acute urinary retention algorithm for 24 hrs
Additional Instructions: for bladder scan greater than 400 mL
Vital Signs As Directed
Frequency: Per unit guidelines
DX Deep Vein Thrombosis Video Routine
08/02/23 Breakfast
NPO
Allow oral meds: Yes
Allow clear liquids: No
Complete Blood Count/No Diff IN AM
Comprehensive Metabolic Panel IN AM
08/03/23 06:00
Complete Blood Count/No Diff IN AM
Comprehensive Metabolic Panel IN AM
08/03/23 11:00
DC Protocol for Telemetry ONCE
08/04/23 06:00
Complete Blood Count/No Diff IN AM
Comprehensive Metabolic Panel IN AM
08/05/23 06:00
Complete Blood Count/No Diff IN AM
Comprehensive Metabolic Panel IN AM
08/06/23 06:00
Complete Blood Count/No Diff IN AM
Comprehensive Metabolic Panel IN AM
Vital Signs
Initial and Last Documented VS:
Initial Vital Signs
Temp Pulse Resp BP Pulse Ox
98.8 F 105 20 118/76 96
08/01/23 18:42 08/01/23 18:42 08/01/23 18:42 08/01/23 18:42 08/01/23 18:42
Last Documented Vital Signs
Temp Pulse Resp BP Pulse Ox
99.4 F 105 18 119/77 96
08/01/23 22:30 08/01/23 22:30 08/01/23 22:30 08/01/23 22:30 08/01/23 22:30
MDM/Problems Addressed
Differential Diagnosis Includes:
Pulmonary embolism
MDM/Problems Addressed:
Patient called back to the emergency room due to pulmonary embolism noted on a CT that was performed prior to discharge. Patient was just hospitalized for a life-threatening intra-abdominal hemorrhage related to a hepatocellular carcinoma.
Therefore he is not a great candidate for anticoagulation. He is hemodynamically stable. Will defer anticoagulation at this time thinking that it is more appropriate for the patient to have an IVC filter. This was discussed with the hospitalist.
Chronic conditions affecting care: Cancer
*Radiology
Radiology exam reviewed: radiology read reviewed
*Critical Care Note
Total Time (30-74mins, 75-104mins- exclusive of procedures): Not Applicable
ED Attending Note
-
Portions of this chart may have been created with voice recognition software.� Occasional wrong word or��sound alike� substitutions may have occurred due to the inherent limitations of voice recognition software.
Discharge Plan
Departure
Patient Disposition: Admit
Date of Disposition: 08/01/23
Time of Disposition: 19:38
Admit to: Med/Surg
Presentation/result/management discussed w/ accepting MD/DO: Hospitalist
Condition: Fair
Discharge Problem:
Pulmonary embolism
Interventions
Interventions:
*Risk Screen - Suicide Last Done: 08/01/23 22:09
*General Assessment Last Done: 08/01/23 22:09
*Neglect/Abuse Screening Last Done: 08/01/23 22:09
ED- Fall Risk Assessment Last Done: 08/01/23 22:09
*ED COVID-19 Vaccine History Last Done: 08/01/23 22:09
*Nursing Disposition Last Done: 08/01/23 22:09
ED- Cardiac Assessment Last Done: 08/01/23 19:29
ED- Pulmonary Assessment Last Done: 08/01/23 19:29
Discharge Date and Time
Discharge Date/Time: 08/01/23 22:10
--- NOTE | 2023-08-01 19:37 | HPS.HSE ---
Family Physician
-
Family Physician:
Chief Complaint
-
PE
History of Present Illness
2-year-old male discharged from the hospital this afternoon after an admission for intra-abdominal hemorrhage from ruptured hepatic mass. This was treated with embolization The mass was determined to be hepatocellular carcinoma. Patient had a
presumably staging CAT scan today prior to discharge. After returning home he received a phone call that the CT scan showed pulmonary emboli. He was told to return to the hospital. Patient denies any pain with deep inspiration. He does not feel
short of breath, chest pain. denied MARTINEZ, dizzy oy syncopal episode. denied abdominal pain,n,v,d. denied dysuria or hematuria. patient noted b/l LE swelling few days ago, while he was here in the hospital .
admitting for further management.
Medical History
Past Medical History
Past Medical History: Reports Other
Additional Past Medical History:
hepato cellular carcinoma
Past Surgical History: Reports None
Social History
Tobacco: Non-smoker
Alcohol: Former
Drug: Former User
Family History
Family History: Not pertinent
Allergies / Home Medications
Allergies reflects when Allergies were last updated in [facility].
Home Medications with original date entered in [facility]
Allergy/Medication List:
Allergies
Allergy/AdvReac Type Severity Reaction Status Date / Time
No Known Allergies Allergy Verified 07/20/23 12:28
Home Medications
acetaminophen 325 mg tablet 325 mg PO Q4HPRN PRN fever >100.4F 90 days #90 tabs 08/01/23
Review of Systems
-
Constitutional: Reports No Symptoms
EENT: Reports No Symptoms
Respiratory: Reports No Symptoms
Cardiac: Reports No Symptoms
Abdomen/GI: Reports No Symptoms
: Reports No Symptoms
Musculoskeletal: Reports No Symptoms
Skin: Reports No Symptoms
Neurological: Reports No Symptoms
Endocrine: Reports No Symptoms
Hematologic/Lymphatic: Reports No Symptoms
Psych: Reports No Symptoms
Physical Exam
Vital Signs
Vital Signs
Temp Pulse Resp BP Pulse Ox
98.8 F 98 14 116/85 97
08/01/23 18:42 08/01/23 19:30 08/01/23 19:30 08/01/23 19:20 08/01/23 19:30
Physical Exam
General: Well Developed, Well Nourished and No Apparent Distress
HEENT: NormoCephalic, Moist mucous membranes and Atraumatic
Respiratory: Clear
Cardiac: S1/S2 and Regular Rhythm; No Murmur or Rub
GI: Soft, Non Tender, Non Distended and Normal Bowel Sounds; No Organomegaly
Rectal: Deferred by Provider
Musculoskeletal: No Clubbing, No Cyanosis and No Edema
Skin: No Rash
Neuro: AO x 3 and Nonfocal/grossly intact
Data Reviewed
-
Lab Data: Labs Reviewed by me
Impression/Plan
-
#pulmonary embolism
-IR consulted for IVC filter
-duplex of LE
-NPO after MN
# Liver mass with elevated tumor marker, c/w HCC
-Pt reported previous drug use( in college). Also he was rejected for blood donation in past due to Hep C Antibodies. Serology + Hep C AB , await RNA test
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
- History of heavy alcohol use but not recent
-paracentesis /
#Hemorrhagic shock due to Left hepatic artery rupture with bleeding/ Massive intra-abdominal hematoma
#Acute blood loss anemia
Status post 6 units packed red blood cells
HGB Stable.
# Transaminitis
Mostly secondary to hemorrhagic shock
� Also possible component of malignancy,
� Improving
# Hyponatremia, mild
-monitor outpatient
-improving
DVT prophylaxis�SCDs
Full code
--- NOTE | 2023-08-01 20:07 | W.PN.UPDATE ---
Addendum entered and electronically signed by Siena Alejo MD 08/01/23 20:48:
On exam patient is cachectic appearing, in no acute distress, conversant, jaundiced. + abdominal distention. + b/l LE swelling. Chest clear, CV: S1, S2, RRR.
Original Note:
Update Note
Progress Note Update
This update note serves as an addendum to H&P written by AIME Billingsley
I saw and examined the patient.
The GLOBAL SALES MANAGER's note was reviewed and I agree with the note.
Comment:
Mr. Andrade Rivera is a 62 yo man with recent diagnosis of HCC s/p triple phase CT showing PE. He was asked to come back to the hospital. Patient had an admission 07/19-08/01/23 where he presented with syncope and was found to have liver mass with
massive hematoma and hemorrhage s/p embolization. Imaging showing cirrhotic liver with prominent varices. HCV ab + He was found to have elevated tumor marker consistent with HCC. Hospital course c/b fevers likely 2/[address] 08/01/23
IMPRESSION: Within the visualized right lower chest, filling defects identified within the right lower lobe pulmonary artery, compatible with pulmonary embolism, new from CT angiography of July 20, 2023.
Enhancing mass centered in the lateral segment of the left lobe liver, compatible with hepatocellular carcinoma with a high degree of confidence.
Low-density lesion within the right lobe of the liver medially, which is likely a second neoplastic focus, and likely metastatic disease from hepatocellular carcinoma.
There are 3 well-defined pulmonary nodules within the lower lungs as described, which are suspicious for pulmonary metastatic disease.
Cirrhotic liver with prominent varices in the upper abdomen and extending adjacent to the distal esophagus.
Moderate to large amount of ascites within the abdomen and pelvis. Subtle soft tissue thickening involving the lateral margins of the ascitic fluid within the abdomen, and raises concern for peritoneal carcinomatosis. This thickening could possibly
be on the basis of recent hemorrhage.
Subtle 1.5 cm focus of ill-defined sclerosis within the posterior aspect of the T12 vertebral body, considered mildly suspicious for metastatic lesion, although could represent a bone island.
Patient returns to the ER after called by his discharging physician. Given recent hemorrhage from mass he is not an anticoagulation candidate.
Triage VS: T 98.8, P 105, BP 118/76, RR 20, SpO2 96% RA
LABS from this morning: WBC 7.4, Hg 11.1, PLT 241, Na 134, K+ 4.0, Cr 0.5, Glucose 93, T. Bili 3.7, AST 99, ALT 89
Right Lower Lobe Pulmonary Embolism
-patient's respiratory status stable.
-Admit to telemetry
-F/U LE US
-He is not an AC candidate with recent hemorrhage
-NPO after MN for IVC placement
-IR consulted
-no SCD's given likely LE blood clots
Hemorrhagic Shock 2/2 left hepatic artery rupture s/p IR Embolization on 07/19
Hemorrhagic Ascites
Hepatocellular Carcinoma
HCV
Liver Cirrhosis
Tumor Fever
[2023-08-01 22:25] VITALS: BP 119/77
[2023-08-01 22:26] VITALS: BMI 22.6
[2023-08-01 22:30] VITALS: BP 119/77
--- NOTE | 2023-08-01 23:31 | W.PN.UPDATE ---
Update Note
Progress Note Update
RN notified OVERHEAD CRANE TRUCK LOADER patient had 20 beats of V-tach. Patient asymptomatic, stable VS, will order BMP, Mag.
[2023-08-02] VITALS (7 sets, daily range): BP systolic 92–110; BP diastolic 63–70; BMI 22.6
[2023-08-02 00:16] LABS: Blood Urea Nitrogen 13 mg/dl (9-20); Calcium 7.8 mg/dl (8.4-10.2); Carbon Dioxide 26 mmol/L (22-30); Chloride 103 mmol/L (98-107); Estimated Creatinine Clearance 112 ml/min; Glucose 108 mg/dl (70-99); Magnesium 2.1 mg/dl (1.6-2.3); Sodium 132 mmol/L (135-145); eGFR > 60.00
--- NOTE | 2023-08-02 04:01 | PTCARENOTE ---
Patient arrived on unit @2212 via stretcher from ED, ambulate to bed. Patient AAOx3 denies any pain or discomfort. While doing admission questions, patient had a 20 beat run of Vtach, asymptomatic. MODELING DIRECTOR made aware, labs ordered. Skin assessment
completed, oriented to unit, call ramirez within reach.
[2023-08-02 07:07] LABS: Hematocrit 29.2 % (39.0-52.0); Hemoglobin 9.9 g/dL (13.0-18.0); Mean Corp Hgb Conc. 33.9 g/dL (33.0-37.0); Mean Corpuscular Hgb 30.7 pg (27.0-31.0); Mean Corpuscular Volume 90.7 fL (80.0-94.0); Mean Platelet Volume 10.1 fL (7.4-10.4); Platelet Count 203 10^3/uL (130-400); Red Blood Cell Count 3.22 10^6/uL (4.70-6.10); Red Cell Dist. Width 15.9 % (11.5-14.5); White Blood Cell Count 6.1 10^3/uL (4.8-10.8)
[2023-08-02 07:26] LABS: ALT (SGPT) 76 U/L (0-50); AST (SGOT) 88 U/L (17-59); Albumin 2.5 g/dl (3.5-5.0); Alkaline Phosphatase 91 U/L (38-126); Blood Urea Nitrogen 13 mg/dl (9-20); Calcium 7.6 mg/dl (8.4-10.2); Carbon Dioxide 25 mmol/L (22-30); Chloride 105 mmol/L (98-107); Estimated Creatinine Clearance 112 ml/min; Glucose 89 mg/dl (70-99); Potassium 4.2 mmol/L (3.5-5.1); Sodium 134 mmol/L (135-145); Total Bilirubin 2.5 mg/dl (0.2-1.3); Total Protein 6.1 g/dl (6.3-8.2); eGFR > 60.00
--- NOTE | 2023-08-02 13:45 | W.PN.HOSP.TC ---
Today's Communication/Plan
-
IVC filter
Assessment / Plan
Assessment / Plan
Physical Exam
General: Well Developed, Well Nourished and No Apparent Distress
HEENT: NormoCephalic, Moist mucous membranes and Atraumatic
Respiratory: Clear
Cardiac: S1/S2 and Regular Rhythm; No Murmur or Rub
GI: Soft, Non Tender, Non Distended and Normal Bowel Sounds; No Organomegaly
Rectal: Deferred by Provider
Musculoskeletal: No Clubbing, No Cyanosis and No Edema
Skin: No Rash
Neuro: AO x 3 and Nonfocal/grossly intact
#Pulmonary embolism
#Left DVT
-IR consulted for IVC filter w/ hx of hemorrhagic shock
-NPO after MN
#Tumor Fever
# Liver mass with elevated tumor marker, c/w HCC
-Pt reported previous drug use( in college). Also he was rejected for blood donation in past due to Hep C Antibodies. Serology + Hep C AB , await RNA test
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
- History of heavy alcohol use but not recent
-paracentesis 07/29
#Hemorrhagic shock due to Left hepatic artery rupture with bleeding/ Massive intra-abdominal hematoma
#Acute blood loss anemia
Status post 6 units packed red blood cells
HGB Stable.
# Transaminitis
Mostly secondary to hemorrhagic shock
� Also possible component of malignancy,
� Improving
#3 well-defined pulmonary nodules within the lower lungs as described
#Subtle 1.5 cm focus of ill-defined sclerosis within the posterior aspect of the T12 vertebral body
-suspicious for pulmonary metastatic disease.
# Hyponatremia, mild
-monitor outpatient
-improving
DVT prophylaxis�SCDs
Full code
Anticipated Discharge: Within 24 hours
Subjective/Interval History
-
Date of Service: August 02, 2023
planning for ivc filter
Objective Data
-
Labs:
Laboratory Results
08/02/23
05:36
WBC 6.1
Hgb 9.9 L
Hct 29.2 L
Plt Count 203
Sodium 134 L
Potassium 4.2
Chloride 105
Carbon Dioxide 25
BUN 13
Creatinine 0.5 L
Glucose 89
Calcium 7.6 L
Total Bilirubin 2.5 H
AST 88 H
ALT 76 H
Alkaline Phosphatase 91
Vital Signs:
Vital Signs
Temp Pulse Resp BP Pulse Ox
98.8 F 94 17 102/67 99
08/02/23 11:00 08/02/23 11:00 08/02/23 11:00 08/02/23 11:00 08/02/23 11:00
Review of Systems
-
History Source: Patient
All other systems: Not reviewed unless documented
Data Reviewed
-
CT Scan: Image personally visualized and interpreted and Report Reviewed by me
Medical Tests (Nuc Med, Echo etc): Image personally visualized and interpreted and Report Reviewed by me
Labs: Labs Reviewed by me
--- NOTE | 2023-08-02 15:41 | W.PN.UPDATE ---
Update Note
Progress Note Update
Procedure: IVC filter insertion
- indication: DVT/PE with contraindication to AC (hemoperitoneum from ruptured HCC).
- IVC venogram showed conventional anatomy, noting a prominent ascending retroperitoneal vein
- ALN filter deployed without incident. Filter is removable, can be removed if/when patient able to restart AC
- tolerated well.
--- NOTE | 2023-08-02 16:22 | CM ---
Pt readmitted yesterday after d/c - had CT yesterday for staging - found blood clots - pt called and instructed to come to hospital for treatment
Pt was living with his sister. She was unable to assist him at d/c. His brother Pipe has a room available - plan is to go to brothers at d/c
Pt uninsured - previously applied for medical assist thru [employer] - pending
Given info on [facility] and plans to follow until insured. Will need chemo
DME - none
SNF/HH - denies past hx
Has ride at d/c
No PCP/Pharm at this time
For IVC filter placement today
Plan - anticipate home no needs; insurance pending - will need future cancer treatment
[2023-08-03 02:39] VITALS: BP 114/73
[2023-08-03 07:22] LABS: Hematocrit 31.3 % (39.0-52.0); Hemoglobin 10.6 g/dL (13.0-18.0); Mean Corp Hgb Conc. 33.9 g/dL (33.0-37.0); Mean Corpuscular Hgb 30.8 pg (27.0-31.0); Mean Platelet Volume 10.6 fL (7.4-10.4); Platelet Count 192 10^3/uL (130-400); Red Blood Cell Count 3.44 10^6/uL (4.70-6.10); Red Cell Dist. Width 15.7 % (11.5-14.5); White Blood Cell Count 5.1 10^3/uL (4.8-10.8)
[2023-08-03 07:50] VITALS: BP 108/75
[2023-08-03 08:21] LABS: ALT (SGPT) 73 U/L (0-50); AST (SGOT) 89 U/L (17-59); Albumin 2.8 g/dl (3.5-5.0); Alkaline Phosphatase 112 U/L (38-126); Blood Urea Nitrogen 11 mg/dl (9-20); Calcium 8.1 mg/dl (8.4-10.2); Carbon Dioxide 23 mmol/L (22-30); Chloride 105 mmol/L (98-107); Estimated Creatinine Clearance 112 ml/min; Glucose 86 mg/dl (70-99); Potassium 4.3 mmol/L (3.5-5.1); Sodium 135 mmol/L (135-145); Total Protein 6.6 g/dl (6.3-8.2); eGFR > 60.00
[2023-08-03 11:01] VITALS: BP 107/67
--- NOTE | 2023-08-03 12:01 | W.PN.HOSP.TC ---
Addendum entered and electronically signed by Ramesh Soria MD 08/13/23 15:52:
Mild malnutrition
Addendum entered and electronically signed by Ramesh Soria MD 08/03/23 17:33:
[id number]
Original Note:
Today's Communication/Plan
-
ALN filter deployed without incident. Filter is removable, can be removed if/when patient able to restart AC
DC today
F/u PCP, Oncology outpatient
F/u CBC, BMP, LFTs outpatient
Assessment / Plan
Assessment / Plan
Physical Exam
General: Well Developed, Well Nourished and No Apparent Distress
HEENT: NormoCephalic, Moist mucous membranes and Atraumatic
Respiratory: Clear
Cardiac: S1/S2 and Regular Rhythm; No Murmur or Rub
GI: Soft, Non Tender, Non Distended and Normal Bowel Sounds; No Organomegaly
Rectal: Deferred by Provider
Musculoskeletal: No Clubbing, No Cyanosis and No Edema
Skin: No Rash
Neuro: AO x 3 and Nonfocal/grossly intact
#Pulmonary embolism
#Left DVT
-IR consulted for IVC filter w/ hx of hemorrhagic shock
-IVC Filter placed 08/02/23
-ALN filter deployed without incident. Filter is removable, can be removed if/when patient able to restart AC
#Tumor Fever
# Liver mass with elevated tumor marker, c/w HCC
-Pt reported previous drug use( in college). Also he was rejected for blood donation in past due to Hep C Antibodies. Serology + Hep C AB , await RNA test
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
- History of heavy alcohol use but not recent
-paracentesis 07/29
-F/u Outpatient onc
#Hemorrhagic shock due to Left hepatic artery rupture with bleeding/ Massive intra-abdominal hematoma
#Acute blood loss anemia
Status post 6 units packed red blood cells
HGB Stable.
-CBC f/u
# Transaminitis
Mostly secondary to hemorrhagic shock
� Also possible component of malignancy,
� Improving
-CMP f/u
#3 well-defined pulmonary nodules within the lower lungs as described
#Subtle 1.5 cm focus of ill-defined sclerosis within the posterior aspect of the T12 vertebral body
-suspicious for pulmonary metastatic disease.
-F/u Onc outpatient
# Hyponatremia, mild
-monitor outpatient
-improving
DVT prophylaxis�SCDs
Full code
More than 30 minutes spent in discharge including
Final examination of the patient
Summarizing hospital stay
Instructions for continuing care to all relevant caregivers
Preparation of discharge records, prescriptions, and referral forms
Total time spent (35 in minutes):
Anticipated Discharge: Today
Subjective/Interval History
-
Date of Service: August 03, 2023
no acute events, tolerated IVC Filter placement
Objective Data
-
Labs:
Laboratory Results
08/03/23
05:49
WBC 5.1
Hgb 10.6 L
Hct 31.3 L
Plt Count 192
Sodium 135
Potassium 4.3
Chloride 105
Carbon Dioxide 23
BUN 11
Creatinine 0.5 L
Glucose 86
Calcium 8.1 L
Total Bilirubin 2.0 H
AST 89 H
ALT 73 H
Alkaline Phosphatase 112
Vital Signs:
Vital Signs
Temp Pulse Resp BP Pulse Ox
98.4 F 103 16 107/67 94
08/03/23 11:01 08/03/23 11:01 08/03/23 11:01 08/03/23 11:01 08/03/23 11:01
I&O
08/02/23 08/03/23 08/04/23
06:59 06:59 06:59
Intake Total 120 / 120
Balance 120 / 120
Review of Systems
-
History Source: Patient
All other systems: Not reviewed unless documented
Data Reviewed
-
CT Scan: Image personally visualized and interpreted and Report Reviewed by me
Medical Tests (Nuc Med, Echo etc): Image personally visualized and interpreted and Report Reviewed by me
Labs: Labs Reviewed by me
--- NOTE | 2023-08-03 12:07 | W.DS.TRANS ---
DC Summary - [employer]
-
Discharge Instructions:
Discharge Diagnosis/Procedures #Pulmonary embolism
#Left DVT
#S/P IVC Filter
Diet 2 Gram Sodium,Low Fat,Low Cholesterol
Activity As tolerated
Driving Restrictions No driving
Blood Work cbc, lfts, cmp in 1 week with pcp/oncology
Instructions:
Stand-Alone Forms:
Changes to Home Medications: No
Discharge Medications:
DC Medications w/original date entered in [employer]
acetaminophen 325 mg tablet 325 mg PO Q4HPRN PRN fever >100.4F 90 days #90 tabs 08/01/23
Home Medication Changes
na
Pending Results: No
--- NOTE | 2023-08-05 12:28 | PN.CDI ---
CDI
- -
CDI:
Physician Documentation Request
Admit Date: 08/01/23 22:07
Dear Doctor Estella
Please review the following and provide your response in the progress notes.
Clinical Indicators:
Per RD assessment on 08/01, 'Patient meets ASPEN/AND criteria for Mild Protein Calorie Malnutrition of Chronic Illness as evidenced by Mild subcutaneous loss over orbitals, moderate subcutaneous loss over rib cage, Mild muscle loss of temporals and
Moderate muscle loss of clavicles.'
Based on the above information and your assessment, which of the following most accurately represents the patient's nutritional status?
Mild malnutrition
Cachexia without malnutrition
Other (please specify)Unable to determine
[place] Criteria ([facility] Hospitalist 2017)
2 or more criteria must be present for either
non severe or severe malnutrition
Note that the criteria differs related to the
presence of an acute or chronic illness
Acute Illness Chronic Illness
Energy Intake Non Severe: <75% for >7 days Non Severe: <75% for >1 month
Severe: <50% for >5 days Severe: <75% for >1 month
Weight Loss Non Severe: 1-2% over 1 week Non Severe: 5% over 1 month
5% over 1 month 7.5% over 3 months
7.5% over 3 months 10% over 6 months
1 year N/A 20% over 1 year
Severe: >2% over 1 week Severe: >5% over 1 month
>5% over 1 month >7.5% over 3 months
>7.5% over 3 months >10% over 6 months
1 year N/A >20% over 1 year
Body Fat Non Severe: Mild Decrease Non Severe: Mild Loss
Severe: Moderate Decrease Severe: Severe Loss
Muscle Mass Non Severe: Mild Decrease Non Severe: Mild Loss
Severe: Moderate Decrease Severe: Severe Loss
Fluid Accumulation Non Severe: Mild Accumulation Non Severe: Mild Accumulation
Severe: Moderate to severe Severe: Moderate to severe
accumulation accumulation
Reduced Technical Product Manager Strength Non Severe: N/A Non Severe: N/A
Severe: Measurably reduced Severe: Measurably reduced
Additional criteria that can be used to Determine if Mild or Moderate Malnutrition ([employer] Manual 2018)
Mild Moderate Severe
Albumin gm/dl <3.0 gm/dl <2.5 gm/dl <2.0 gm/dl
Pre Albumin mg/dl <15 gm/dl <10 mg/dl <5.0 mg/dl
BMI <18.5 <17 <16
Use of terms such as suspected, likely, concern for, or probable (associated with a specific diagnosis that is being evaluated, monitored, or treated as if it exists) are acceptable and can be coded in the inpatient setting, when documented at the
time of discharge.
Thank you,
Annette IRIZARRYn, RN, CCDS
CDI Specialist
[phone]
Please use your independent medical judgment in providing your response.
== END 2023-08-03 13:08 | disposition home or self-care (01) | DRG 175 ==
LOC: 3 WEST ACU 22:07
PROVIDERS: Nurse Practitioner Gerontology; Radiology Diagnostic Radiology; Registered Nurse; ADMITTING PHYSICIAN Student in an Organized Health Care Education/Training Program; ATTENDING PHYSICIAN Internal Medicine; EMERGENCY PHYSICIAN Emergency Medicine
PROC: 06H03DZ Insertion of Intraluminal Device into Inferior Vena Cava, Percutaneous Approach (ICD-10-PCS; 2023-08-02)
DX: I26.99 Other pulmonary embolism without acute cor pulmonale (principal); J96.01 Acute respiratory failure with hypoxia; K66.1 Hemoperitoneum; R57.8 Other shock; C22.0 Liver cell carcinoma; E87.1 Hypo-osmolality and hyponatremia; I85.10 Secondary esophageal varices without bleeding; D62 Acute posthemorrhagic anemia; I77.2 Rupture of artery; S36.92XA Contusion of unspecified intra-abdominal organ, initial encounter; R64 Cachexia; R18.8 Other ascites; J81.1 Chronic pulmonary edema; E87.20 Acidosis, unspecified; I82.452 Acute embolism and thrombosis of left peroneal vein; I82.442 Acute embolism and thrombosis of left tibial vein; C78.00 Secondary malignant neoplasm of unspecified lung; E44.1 Mild protein-calorie malnutrition; R50.9 Fever, unspecified; F10.11 Alcohol abuse, in remission; F19.11 Other psychoactive substance abuse, in remission; K74.60 Unspecified cirrhosis of liver; Z86.19 Personal history of other infectious and parasitic diseases; Z68.22 Body mass index [BMI] 22.0-22.9, adult; Z59.7 Insufficient social insurance and welfare support
CPT/HCPCS: 37191; 80048; 80053; 83735; 85027; 93970; 99284; C1769; C1880

== ENCOUNTER → 2023-10-29 15:56 | Outpatient (REF) | payer OTHER, SELFPAY | LOC: RAD 15:56 | PROVIDERS: ATTENDING PHYSICIAN Nurse Practitioner Adult Health; FAMILY PHYSICIAN Student in an Organized Health Care Education/Training Program | DX: C22.0 Liver cell carcinoma (principal) | CPT/HCPCS: 76700; 80053; 85025 ==

== ENCOUNTER → 2023-11-04 09:25 | Outpatient (REF) | payer OTHER, SELFPAY ==
[2023-11-04 10:02] LABS: ALT (SGPT) 190 U/L (0-50); AST (SGOT) 142 U/L (17-59); Albumin 4.3 g/dl (3.5-5.0); Alkaline Phosphatase 194 U/L (38-126); Blood Urea Nitrogen 12 mg/dl (9-20); Calcium 9.8 mg/dl (8.4-10.2); Carbon Dioxide 25 mmol/L (22-30); Chloride 102 mmol/L (98-107); Glucose 95 mg/dl (70-99); Potassium 4.2 mmol/L (3.5-5.1); Sodium 139 mmol/L (135-145); Total Bilirubin 2.4 mg/dl (0.2-1.3); Total Protein 8.5 g/dl (6.3-8.2); eGFR > 60.00
[2023-11-04 10:04] LABS: % Basophils 1.4 % (0-2); % Eosinophils 7.1 % (0-6); % Immature Granulocytes 0.2 % (0-0.5); % Lymphocytes 25.7 % (20.5-51.1); % Monocytes 8.3 % (1.7-9.3); % Neutrophils 57.3 % (42.2-75.2); Absolute Basophils 0.1 10^3/uL (0-0.2); Absolute Eosinophils 0.3 10^3/uL (0-0.7); Absolute Lymphocytes 1.1 10^3/uL (1.2-3.4); Absolute Monocytes 0.4 10^3/uL (0.1-0.6); Absolute Neutrophils 2.4 10^3/uL (1.4-6.5); Hematocrit 44.6 % (39.0-52.0); Hemoglobin 14.8 g/dL (13.0-18.0); Mean Corp Hgb Conc. 33.2 g/dL (33.0-37.0); Mean Corpuscular Hgb 30.2 pg (27.0-31.0); Mean Platelet Volume 10.1 fL (7.4-10.4); Nucleated Red Blood Cells % 0 % (-); Platelet Count 145 10^3/uL (130-400); White Blood Cell Count 4.2 10^3/uL (4.8-10.8)
== END ==
LOC: REG 09:25
PROVIDERS: ATTENDING PHYSICIAN Internal Medicine Hematology & Oncology; FAMILY PHYSICIAN Student in an Organized Health Care Education/Training Program
DX: C22.0 Liver cell carcinoma (principal)
CPT/HCPCS: 36415; 80053; 85025

== ENCOUNTER → 2023-11-11 11:23 | Outpatient (REF) | payer OTHER, SELFPAY ==
[2023-11-11 11:44] LABS: % Basophils 1.2 % (0-2); % Immature Granulocytes 0.2 % (0-0.5); % Lymphocytes 27.9 % (20.5-51.1); % Neutrophils 58.7 % (42.2-75.2); Absolute Basophils 0.1 10^3/uL (0-0.2); Absolute Eosinophils 0.2 10^3/uL (0-0.7); Absolute Lymphocytes 1.2 10^3/uL (1.2-3.4); Absolute Monocytes 0.3 10^3/uL (0.1-0.6); Absolute Neutrophils 2.5 10^3/uL (1.4-6.5); Hematocrit 45.1 % (39.0-52.0); Hemoglobin 15.3 g/dL (13.0-18.0); Mean Corp Hgb Conc. 33.9 g/dL (33.0-37.0); Mean Corpuscular Hgb 30.8 pg (27.0-31.0); Mean Corpuscular Volume 90.7 fL (80.0-94.0); Mean Platelet Volume 10.2 fL (7.4-10.4); Nucleated Red Blood Cells % 0 % (-); Platelet Count 142 10^3/uL (130-400); Red Blood Cell Count 4.97 10^6/uL (4.70-6.10); Red Cell Dist. Width 14.6 % (11.5-14.5); White Blood Cell Count 4.2 10^3/uL (4.8-10.8)
[2023-11-11 11:52] LABS: ALT (SGPT) 89 U/L (0-50); AST (SGOT) 105 U/L (17-59); Albumin 4.3 g/dl (3.5-5.0); Alkaline Phosphatase 201 U/L (38-126); Blood Urea Nitrogen 14 mg/dl (9-20); Calcium 9.4 mg/dl (8.4-10.2); Carbon Dioxide 27 mmol/L (22-30); Chloride 103 mmol/L (98-107); Glucose 91 mg/dl (70-99); Potassium 4.4 mmol/L (3.5-5.1); Sodium 141 mmol/L (135-145); Total Bilirubin 1.8 mg/dl (0.2-1.3); Total Protein 8.5 g/dl (6.3-8.2); eGFR > 60.00
== END ==
LOC: REG 11:23
PROVIDERS: ATTENDING PHYSICIAN Internal Medicine Hematology & Oncology
DX: C22.0 Liver cell carcinoma (principal)
CPT/HCPCS: 36415; 80053; 85025

== ENCOUNTER → 2023-11-18 12:07 | Outpatient (REF) | payer OTHER, SELFPAY ==
[2023-11-18 12:52] LABS: % Eosinophils 6.1 % (0-6); % Immature Granulocytes 0.3 % (0-0.5); % Lymphocytes 26.3 % (20.5-51.1); % Monocytes 8.4 % (1.7-9.3); % Neutrophils 57.9 % (42.2-75.2); Absolute Eosinophils 0.2 10^3/uL (0-0.7); Absolute Monocytes 0.3 10^3/uL (0.1-0.6); Absolute Neutrophils 2.3 10^3/uL (1.4-6.5); Hematocrit 45.2 % (39.0-52.0); Hemoglobin 15.1 g/dL (13.0-18.0); Mean Corp Hgb Conc. 33.4 g/dL (33.0-37.0); Mean Corpuscular Hgb 31.4 pg (27.0-31.0); Nucleated Red Blood Cells % 0 % (-); Platelet Count 144 10^3/uL (130-400); Red Blood Cell Count 4.81 10^6/uL (4.70-6.10); Red Cell Dist. Width 14.6 % (11.5-14.5); White Blood Cell Count 3.9 10^3/uL (4.8-10.8)
[2023-11-18 13:03] LABS: ALT (SGPT) 74 U/L (0-50); AST (SGOT) 111 U/L (17-59); Alkaline Phosphatase 183 U/L (38-126); Blood Urea Nitrogen 16 mg/dl (9-20); Calcium 9.6 mg/dl (8.4-10.2); Carbon Dioxide 25 mmol/L (22-30); Chloride 105 mmol/L (98-107); Glucose 96 mg/dl (70-99); Sodium 141 mmol/L (135-145); Total Bilirubin 1.4 mg/dl (0.2-1.3); Total Protein 8.1 g/dl (6.3-8.2); eGFR > 60.00
== END ==
LOC: REG 12:07
PROVIDERS: ATTENDING PHYSICIAN Internal Medicine Hematology & Oncology; FAMILY PHYSICIAN Student in an Organized Health Care Education/Training Program
DX: C22.0 Liver cell carcinoma (principal)
CPT/HCPCS: 36415; 80053; 85025

== ENCOUNTER → 2023-11-25 08:20 | Outpatient (REF) | payer OTHER, SELFPAY ==
[2023-11-25 08:52] LABS: % Basophils 0.9 % (0-2); % Eosinophils 5.9 % (0-6); % Immature Granulocytes 0.2 % (0-0.5); % Lymphocytes 25.2 % (20.5-51.1); % Monocytes 7.3 % (1.7-9.3); % Neutrophils 60.5 % (42.2-75.2); Absolute Eosinophils 0.3 10^3/uL (0-0.7); Absolute Lymphocytes 1.1 10^3/uL (1.2-3.4); Absolute Monocytes 0.3 10^3/uL (0.1-0.6); Absolute Neutrophils 2.7 10^3/uL (1.4-6.5); Hematocrit 47.1 % (39.0-52.0); Mean Corpuscular Hgb 31.1 pg (27.0-31.0); Mean Corpuscular Volume 91.5 fL (80.0-94.0); Mean Platelet Volume 11.2 fL (7.4-10.4); Nucleated Red Blood Cells % 0 % (-); Platelet Count 149 10^3/uL (130-400); Red Blood Cell Count 5.15 10^6/uL (4.70-6.10); Red Cell Dist. Width 14.6 % (11.5-14.5); White Blood Cell Count 4.4 10^3/uL (4.8-10.8)
[2023-11-25 09:26] LABS: ALT (SGPT) 76 U/L (0-50); AST (SGOT) 115 U/L (17-59); Alkaline Phosphatase 183 U/L (38-126); Blood Urea Nitrogen 15 mg/dl (9-20); Calcium 9.4 mg/dl (8.4-10.2); Carbon Dioxide 28 mmol/L (22-30); Chloride 103 mmol/L (98-107); Glucose 94 mg/dl (70-99); Potassium 4.5 mmol/L (3.5-5.1); Sodium 141 mmol/L (135-145); Total Bilirubin 1.7 mg/dl (0.2-1.3); Total Protein 8.4 g/dl (6.3-8.2); eGFR > 60.00
[2023-11-25 09:52] LABS: TSH 2.21 uIU/ml (0.47-4.68)
[2023-11-26 14:32] LABS: Adrenocorticotropic Hormone 18.3 pg/mL (7.2-63.3)
== END ==
LOC: REG 08:20
PROVIDERS: ATTENDING PHYSICIAN Internal Medicine Hematology & Oncology; FAMILY PHYSICIAN Student in an Organized Health Care Education/Training Program
DX: C22.0 Liver cell carcinoma (principal)
CPT/HCPCS: 36415; 80053; 82024; 84443; 85025

== ENCOUNTER → 2023-12-02 10:41 | Outpatient (REF) | payer OTHER, SELFPAY ==
[2023-12-02 11:26] LABS: % Basophils 1.1 % (0-2); % Eosinophils 6.7 % (0-6); % Immature Granulocytes 0.3 % (0-0.5); % Lymphocytes 26.1 % (20.5-51.1); % Monocytes 8.1 % (1.7-9.3); % Neutrophils 57.7 % (42.2-75.2); Absolute Eosinophils 0.3 10^3/uL (0-0.7); Absolute Monocytes 0.3 10^3/uL (0.1-0.6); Absolute Neutrophils 2.2 10^3/uL (1.4-6.5); Hematocrit 44.5 % (39.0-52.0); Hemoglobin 15.1 g/dL (13.0-18.0); Mean Corp Hgb Conc. 33.9 g/dL (33.0-37.0); Mean Corpuscular Hgb 30.8 pg (27.0-31.0); Mean Corpuscular Volume 90.8 fL (80.0-94.0); Mean Platelet Volume 11.3 fL (7.4-10.4); Nucleated Red Blood Cells % 0 % (-); Platelet Count 134 10^3/uL (130-400); Red Cell Dist. Width 14.4 % (11.5-14.5); White Blood Cell Count 3.7 10^3/uL (4.8-10.8)
[2023-12-02 12:26] LABS: ALT (SGPT) 70 U/L (0-50); AST (SGOT) 105 U/L (17-59); Albumin 2.8 g/dl (3.5-5.0); Alkaline Phosphatase 228 U/L (38-126); Calcium 9.5 mg/dl (8.4-10.2); Carbon Dioxide 27 mmol/L (22-30); Chloride 104 mmol/L (98-107); Glucose 88 mg/dl (70-99); Potassium 4.2 mmol/L (3.5-5.1); Sodium 142 mmol/L (135-145); Total Bilirubin 1.4 mg/dl (0.2-1.3); Total Protein 8.3 g/dl (6.3-8.2)
[2023-12-02 12:36] LABS: Blood Urea Nitrogen 13 mg/dl (9-20); eGFR > 60.00
[2023-12-02 12:54] LABS: TSH 1.68 uIU/ml (0.47-4.68)
[2023-12-03 16:03] LABS: Adrenocorticotropic Hormone 11.5 pg/mL (7.2-63.3)
== END ==
LOC: REG 10:41
PROVIDERS: ATTENDING PHYSICIAN Internal Medicine Hematology & Oncology; FAMILY PHYSICIAN Student in an Organized Health Care Education/Training Program
DX: C22.0 Liver cell carcinoma (principal)
CPT/HCPCS: 36415; 80053; 82024; 84443; 85025

== ENCOUNTER → 2023-12-30 11:29 | Outpatient (REF) | payer OTHER, SELFPAY ==
[2023-12-30 12:04] LABS: % Eosinophils 9.3 % (0-6); % Immature Granulocytes 0.3 % (0-0.5); % Lymphocytes 22.6 % (20.5-51.1); % Monocytes 7.2 % (1.7-9.3); % Neutrophils 59.6 % (42.2-75.2); Absolute Eosinophils 0.4 10^3/uL (0-0.7); Absolute Lymphocytes 0.9 10^3/uL (1.2-3.4); Absolute Monocytes 0.3 10^3/uL (0.1-0.6); Absolute Neutrophils 2.3 10^3/uL (1.4-6.5); Hematocrit 43.7 % (39.0-52.0); Hemoglobin 14.7 g/dL (13.0-18.0); Mean Corp Hgb Conc. 33.6 g/dL (33.0-37.0); Mean Corpuscular Hgb 30.7 pg (27.0-31.0); Mean Corpuscular Volume 91.2 fL (80.0-94.0); Mean Platelet Volume 10.7 fL (7.4-10.4); Nucleated Red Blood Cells % 0 % (-); Platelet Count 159 10^3/uL (130-400); Red Blood Cell Count 4.79 10^6/uL (4.70-6.10); White Blood Cell Count 3.9 10^3/uL (4.8-10.8)
[2023-12-30 12:26] LABS: ALT (SGPT) 63 U/L (0-50); AST (SGOT) 92 U/L (17-59); Albumin 3.9 g/dl (3.5-5.0); Alkaline Phosphatase 243 U/L (38-126); Blood Urea Nitrogen 18 mg/dl (9-20); Calcium 9.6 mg/dl (8.4-10.2); Carbon Dioxide 28 mmol/L (22-30); Chloride 102 mmol/L (98-107); Glucose 99 mg/dl (70-99); Potassium 4.7 mmol/L (3.5-5.1); Sodium 143 mmol/L (135-145); Total Protein 8.5 g/dl (6.3-8.2); eGFR > 60.00
[2023-12-30 13:02] LABS: TSH 1.53 uIU/ml (0.47-4.68)
== END ==
LOC: REG 11:29
PROVIDERS: ATTENDING PHYSICIAN Internal Medicine Hematology & Oncology; FAMILY PHYSICIAN Student in an Organized Health Care Education/Training Program
DX: C22.0 Liver cell carcinoma (principal)
CPT/HCPCS: 36415; 80053; 84443; 85025

== ENCOUNTER → 2024-01-13 12:24 | Outpatient (REF) | payer OTHER, SELFPAY ==
[2024-01-13 13:28] LABS: % Basophils 0.7 % (0-2); % Eosinophils 5.8 % (0-6); % Immature Granulocytes 0.2 % (0-0.5); % Lymphocytes 25.3 % (20.5-51.1); % Monocytes 7.8 % (1.7-9.3); % Neutrophils 60.2 % (42.2-75.2); Absolute Eosinophils 0.2 10^3/uL (0-0.7); Absolute Monocytes 0.3 10^3/uL (0.1-0.6); Absolute Neutrophils 2.5 10^3/uL (1.4-6.5); Hematocrit 46.1 % (39.0-52.0); Hemoglobin 15.1 g/dL (13.0-18.0); Mean Corp Hgb Conc. 32.8 g/dL (33.0-37.0); Mean Corpuscular Hgb 31.4 pg (27.0-31.0); Mean Corpuscular Volume 95.8 fL (80.0-94.0); Mean Platelet Volume 10.6 fL (7.4-10.4); Nucleated Red Blood Cells % 0 % (-); Platelet Count 141 10^3/uL (130-400); Red Blood Cell Count 4.81 10^6/uL (4.70-6.10); Red Cell Dist. Width 14.1 % (11.5-14.5); White Blood Cell Count 4.1 10^3/uL (4.8-10.8)
[2024-01-13 14:14] LABS: ALT (SGPT) 100 U/L (0-50); AST (SGOT) 143 U/L (17-59); Albumin 3.9 g/dl (3.5-5.0); Alkaline Phosphatase 209 U/L (38-126); Blood Urea Nitrogen 13 mg/dl (9-20); Carbon Dioxide 25 mmol/L (22-30); Chloride 103 mmol/L (98-107); Glucose 82 mg/dl (70-99); Potassium 4.5 mmol/L (3.5-5.1); Sodium 139 mmol/L (135-145); Total Bilirubin 2.1 mg/dl (0.2-1.3); Total Protein 8.2 g/dl (6.3-8.2); eGFR > 60.00
== END ==
LOC: REG 12:24
PROVIDERS: ATTENDING PHYSICIAN Internal Medicine Hematology & Oncology; FAMILY PHYSICIAN Student in an Organized Health Care Education/Training Program
DX: C22.0 Liver cell carcinoma (principal)
CPT/HCPCS: 36415; 80053; 85025

== ENCOUNTER → 2024-02-18 07:52 | Outpatient (REF) | payer OTHER, SELFPAY | LOC: PET 07:52 | PROVIDERS: ATTENDING PHYSICIAN Internal Medicine Hematology & Oncology | DX: C22.0 Liver cell carcinoma (principal) | CPT/HCPCS: 78815; A9552 ==

== ENCOUNTER → 2024-04-14 14:41 | Outpatient (REF) | payer OTHER, SELFPAY | LOC: HWRAD 14:41 | PROVIDERS: ATTENDING PHYSICIAN Nurse Practitioner Family; FAMILY PHYSICIAN Student in an Organized Health Care Education/Training Program | DX: R91.8 Other nonspecific abnormal finding of lung field (principal) | CPT/HCPCS: 71250 ==

== ENCOUNTER → 2024-07-10 11:08 | Outpatient (REF) | payer OTHER, SELFPAY | LOC: RAD 11:08 | PROVIDERS: ATTENDING PHYSICIAN Internal Medicine Hematology & Oncology; FAMILY PHYSICIAN Student in an Organized Health Care Education/Training Program | DX: C22.0 Liver cell carcinoma (principal); Z92.26 Personal history of immune checkpoint inhibitor therapy | CPT/HCPCS: 71260; 74177; Q9967 ==

== ENCOUNTER → 2024-07-13 15:59 | Outpatient (REF) | payer OTHER, SELFPAY ==
[2024-04-15 11:25] LABS: INR 1.11; PT 14.8 Sec (11.4-14.6)
[2024-04-15 13:30] VITALS: BMI 23.0
== END ==
LOC: REG 15:59
PROVIDERS: ATTENDING PHYSICIAN Internal Medicine Critical Care Medicine; FAMILY PHYSICIAN Family Medicine
DX: R91.8 Other nonspecific abnormal finding of lung field (principal)
CPT/HCPCS: 36415; 85610; 85730; 93005

== ENCOUNTER → 2024-11-20 07:49 | Outpatient (REF) | payer OTHER, SELFPAY | LOC: RAD 07:49 | PROVIDERS: ATTENDING PHYSICIAN Internal Medicine Hematology & Oncology | DX: C22.0 Liver cell carcinoma (principal); Z92.26 Personal history of immune checkpoint inhibitor therapy | CPT/HCPCS: 71260; 74177; Q9967 ==